=== PATIENT | male | born 1970 | race African-American/Black ===

== ENCOUNTER 2016-05-16 05:07 | Day surgery (SDC) | payer OTHER ==
[2016-05-16] MEDS ORDERED: 1/2 NS 500 ML ONE (05:31)
[2016-05-16 06:26] LABS: CALCIUM 7.9 mg/dL (8.8-10.2); POTASSIUM 2.8 mmol/L (3.5-5.1)
[2016-05-16] MEDS ORDERED: MARCAINE 0.25% PF/EPI 1:200,000 ONE (06:36)
[2016-05-16] MEDS ORDERED: HEPARIN ONE ×2 (06:36→13:05)
[2016-05-16] MEDS ORDERED: XYLOCAINE 1%/EPI 1:100,000 ONE (06:39)
[2016-05-16] MEDS ORDERED: NS 1,000 ML ONE (06:44)
[2016-05-16] MEDS ORDERED: KEFZOL ONE (06:46)
[2016-05-16] MEDS ORDERED: KEFZOL 1 GM/D5W 50 ML ONE (07:22)
[2016-05-16] MEDS ORDERED: NORCO-10 ONE (09:35)
[2016-05-16] MEDS ORDERED: ZOFRAN IV PRN (09:42)
[2016-05-16] MEDS ORDERED: SUBCUTANEOUS INSULIN PUMP MC SCH (09:42)
[2016-05-16] MEDS ORDERED: NORCO-10 PO PRN (09:42)
[2016-05-16] MEDS ORDERED: INSULIN ASPART 5 UNIT SQ SCH (09:42)
[2016-05-16 10:25] VITALS: BP 148/89
--- NOTE | 2016-05-16 11:47 | OPERATIVE NOTE ---
PROCEDURE DATE: 05/16/2016 PROCEDURE PERFORMED: Construction of translocated left brachial basilic arteriovenous fistula. SURGEON: Franky Dugan MD. IRONER OR PRESSER: Kaylyn. PREOPERATIVE DIAGNOSIS: Chronic kidney disease 5. POSTOPERATIVE DIAGNOSIS: Chronic kidney disease 5. DESCRIPTION OF PROCEDURE: After satisfactory general anesthesia was achieved, the left arm was prepped and draped in a sterile fashion. We palpated the brachial pulse at the antecubital fossa. We made a domingo and anesthetized the skin with 1% lidocaine with epinephrine. We made a longitudinal incision. In that incision, we found the brachial artery. We also found the basilic vein. We then followed the course of the basilic vein up to the axilla. We incised the skin as we went and achieved satisfactory hemostasis with electrocautery. As we went along the course of the vein, we tried to avoid any superficial sensory nerves. We then gave the patient 7000 units of heparin systemically. We measured the vein and it measured about 21 cm. We then marked on the skin in the area that we would tunnel the vein, so we then identified where that the vein would then come to meet the artery and we exposed the artery in the mid aspect of the arm, surrounded it with vessel loops proximally and distally. We then mobilized the vein. We ligated it distally with a 3-0 silk suture ligature, transected it, and after we marked the vein we then mobilized it from its bed, ligating the branches that were coming off of it. In 1 branch, we had to use a 7-0 Prolene stitch to close it. After we dissected the vein all the way back to the axilla, we then placed our Impra tunneler through the skin and subcutaneously, and attached the vein to the 4 mm tip. We then pulled the vein through the tunnel carefully and took care not to twist it, having marked the vein to a help avoid twisting. We did irrigate the vein and it irrigated satisfactorily. Before we tunneled it, we had dilated the vein with heparinized saline and any small spots that required a 7-0 Prolene stitch we placed. Then we tunneled it and the vein was left laying by the artery. We then occluded flow in the artery with vessel loops, incised the artery and extended with the Taveras scissors. We then used a 3-1/2 punch. We then constructed an end-to-side anastomosis under 2.5 loupe magnification using a 7-0 Prolene stitch. We began deep and then came around in a parachuting style, constructing the end-to-side anastomosis. Upon completion of that, we allowed flow through the fistula. Flow was established. The flow was augmented with proximal compression. No bleeding was identified. The anastomosis was hemostatic. We then irrigated out the arm, placed some 3-0 Polysorb simple stitches to reapproximate some of the fascia, and then closed the subcutaneous tissue with a running 3-0 Polysorb. This did not obstruct flow in the vein. We then closed the skin with a 4-0 Polysorb subcuticular stitch. An island dressing was applied. He tolerated it well and was sent to the recovery room in satisfactory condition.
[2016-05-16] MEDS ORDERED: DIPRIVAN 1% ONE (12:36)
[2016-05-16] MEDS ORDERED: FENTANYL ONE (12:37)
[2016-05-16] MEDS ORDERED: NEO-SYNEPHRINE ONE (13:05)
[2016-05-16] MEDS ORDERED: ZOFRAN ONE (13:05)
[2016-05-16] MEDS ORDERED: ROBINUL ONE (13:06)
[2016-05-16] MEDS ORDERED: XYLOCAINE-MPF 2% ONE (13:06)
[2016-05-16] MEDS ORDERED: EPHEDRINE ONE (13:06)
[2016-05-16] MEDS ORDERED: COREG PO SCH (21:00)
[2016-05-16] MEDS ORDERED: LASIX PO SCH (21:00)
[2016-05-16] MEDS ORDERED: DILANTIN PO SCH (21:00)
[2016-05-16] MEDS ORDERED: REGLAN PO SCH (21:00)
[2016-05-17] MEDS ORDERED: NORVASC PO SCH (09:00)
[2016-05-17] MEDS ORDERED: DILANTIN PO SCH (09:00)
== END 2016-05-16 10:27 | disposition home or self-care (01) ==
LOC: OPS 05:07
PROVIDERS: ATTEND Surgery
DX: I12.0 Hypertensive chronic kidney disease with stage 5 chronic kidney disease or end stage renal disease (principal); N18.5 Chronic kidney disease, stage 5; E11.9 Type 2 diabetes mellitus without complications
CPT/HCPCS: 80048; 82948; J0690; J1644; J2370; J2405; J3010; J7030

== ENCOUNTER 2016-07-08 20:14 | Inpatient (IN) ==
[2016-07-08] MEDS ORDERED: ASPIRIN PO STA (20:22)
[2016-07-08 20:44] LABS: MANUAL DIFF NEEDED? NO
[2016-07-08 20:46] LABS: BASO% 0.5 % (0.0-0.8); EOS# 0.23 X1000 (0.0-0.7); EOS% 2.5 % (0.0-10.0); HEMATOCRIT 30.2 % (42.0-52.0); HEMOGLOBIN 10.6 g/dL (14.0-18.0); IMM GRAN# 0.02 X1000 (0.0-0.04); IMM GRAN% 0.2 % (0.0-0.5); LYMPH# 2.81 X1000 (1.2-3.4); LYMPH% 30.3 % (20.5-51.1); MCHC 35.1 g/dL (33-37); MCV 91.2 FL (81-99); MONO# 0.75 X1000 (0.11-0.59); MONO% 8.1 % (1.7-9.3); MPV 9.3 FL (7.4-10.4); NEUT% 58.4 % (42.2-75.2); PLT 287 X1000 (130-400); RBC 3.31 XMIL (4.7-6.1)
[2016-07-08 20:56] LABS: INR 1.05; PROTIME 11.1 Seconds (9.2-11.7); PTT 27.5 Seconds (22.0-36.0)
[2016-07-08 21:18] LABS: MAGNESIUM 1.8 mg/dL (1.5-2.7); POTASSIUM 3.4 mmol/L (3.5-5.1); TOTAL BILIRUBIN 0.23 mg/dL (0.20-1.00); TOTAL PROTEIN 6.4 g/dL (6.3-8.3)
[2016-07-08 21:37] LABS: CK INDEX 1.7 (0.0-2.5); CK-MB 6.01 ng/mL (0.0-5.0)
[2016-07-08] MEDS ORDERED: COREG PO ONE (22:13)
[2016-07-08] MEDS ORDERED: HEPARIN IV ONE (22:27)
[2016-07-08] MEDS ORDERED: HEPARIN 25,000 UNITS/D5W 25,000 UNIT/250 ML IV.SOLN IV SCH (22:30)
--- NOTE | 2016-07-09 00:26 | HISTORY AND PHYSICAL ---
PRIMARY CARE PHYSICIAN: Dr. Hernán Dawson. CHIEF COMPLAINT: Chest pain. HISTORY OF PRESENTING ILLNESS: A 45-year-old male with a history of diabetes mellitus type 2, hypertension, end-stage renal disease, and seizure disorder, who presented to the emergency department with 2 days history of having substernal chest pain. He described it as pressure-like and intermittent, and states that it seemed to be worsening. The patient was evaluated in the ER, and due to his presenting symptoms, it was thought that we will place him for observation for further evaluation and management. The patient apparently also had a left lower extremity edema that has been ongoing for about 2 months. He had a venous Doppler done previously, which was negative for any DVT. However, he states that he is unsure why the edema is not resolving. PAST MEDICAL HISTORY: Diabetes mellitus type 2,, on insulin pump, hypertension , end-stage renal disease, on renal dialysis Thursday, Thursday, Thursday, seizure disorder, peripheral arterial disease, left lower extremity DVT. PAST SURGICAL HISTORY: Brain abscess drainage, toe amputations on both feet, dialysis catheter in place. ALLERGIES: No known drug allergies. CURRENT MEDICATIONS: Reglan 5 mg p.o. b.i.d., Lasix 40 mg p.o. daily, Coreg 12.5 mg p.o. b.i.d., Norvasc 10 mg p.o. daily, Dilantin 300 mg p.o. q.a.m. and 200 mg p.o. at bedtime , [place] 10 one p.o. q.4 hours. SOCIAL HISTORY: No history of smoking, alcohol, or illicit drug use. FAMILY HISTORY: No history of coronary disease. REVIEW OF SYSTEMS: Twelve-point review of systems elicited as in HPI. Other systems are negative. PHYSICAL EXAMINATION: GENERAL: Cooperative, friendly male. He is resting comfortably. VITAL SIGNS: Temperature 97.8 degrees, pulse 66, respirations 17, blood pressure 146/72, saturating 100%. HEENT: Atraumatic, normocephalic. Extraocular movements intact. PERRLA. NECK: No masses. CHEST: Bibasilar rales. CARDIOVASCULAR: Regular rate and rhythm. ABDOMEN: Soft, nontender. Positive bowel sounds. EXTREMITIES: Left lower extremity +2 edema. NEUROLOGIC: He is awake, alert, oriented x3. GENITOURINARY: No bladder distention. SKIN: Warm. LABORATORIES AND STUDIES: WBCs 9.28, hemoglobin 10.6, hematocrit 30.2, platelets 287,000. D- dimer is 3.08. Sodium 135, potassium 3.4, chloride 95, CO2 is 22, BUN is 55, creatinine 6.3. Glucose is 123. Troponin is 0.164. ASSESSMENT: A 45-year-old male with a history of diabetes mellitus type 2, hypertension, end- stage renal disease, and seizure disorder, who had presented to the emergency department with a complaint of chest pain. We will place patient for observation for further evaluation and management. 1. Chest pain, with slightly elevated troponins. 2. Increase in D-dimer. Will need to rule out pulmonary embolus. 3. History of deep venous thrombosis in the left lower extremity. 4. End-stage renal disease. 5. Diabetes mellitus type 2. PLAN: 1. We will admit patient to medical floor with telemetry. 2. Continue with cardiac workup. Check EKG, serial cardiac enzymes. Have patient continue on aspirin. We will use sublingual nitroglycerin, morphine p.r.n. chest pain. 3. We will schedule patient for a VQ scan and put him on heparin. 4. We will consult his director of sports medicine for dialysis. 5. Will have patient continue on his insulin pump and monitor blood glucose. 6. We will continue to follow and reassess. cc: Chava Vidal MD MTDD
[2016-07-09] MEDS: HEPARIN 25,000 UNIT in NS 250 ML IV SCH ×2 (01:15→06:43)
[2016-07-09] MEDS ORDERED: PATIENT'S OWN MED INJ SCH (01:53)
[2016-07-09] MEDS ORDERED: ZOFRAN IV PRN (01:53)
--- NOTE | 2016-07-09 04:16 | PROVIDER DOCUMENTATION ---
This chart was entered by Yvette Aldrich Scribe, acting as scribe for Everette Yin MD. HPI-Chest Pain - General Chief Complaint: Chest Pain Stated Complaint: PORT INFECTION ON LT ARM/CP Time Seen by Provider: 07/08/16 21:56 Source: patient Allergies/Adverse Reactions: Patient Allergies Allergy/AdvReac Type Severity Reaction Status Date / Time No Known Allergies Allergy Verified 05/16/16 05:38 Home Medications: Home Medication List Medication Instructions Recorded Confirmed Last Taken Type Metoclopramide HCl [Reglan] 5 mg PO BID #60 tablet 03/01/16 07/08/16 07/08/16 19 :00 Rx Furosemide [Lasix] 40 mg PO BID 04/02/16 07/08/16 07/08/16 19:00 History Carvedilol [Coreg] 12.5 mg PO BID #120 tablet 04/13/16 07/08/16 07/08/16 22:00 Rx Amlodipine [Norvasc] 20 mg PO DAILY 05/14/16 05/16/16 07/08/16 07:00 History Insulin Aspart [Novolog] 0 unit SQ DIRECTED 05/14/16 07/08/16 05/16/16 History Phenytoin [Dilantin] 200 mg PO HS 05/14/16 07/08/16 07/08/16 19:00 History Phenytoin [Dilantin] 300 mg PO QAM 05/14/16 07/08/16 07/08/16 07:00 History Subcutaneous Insulin Pump [Insulin 1 each MC DIRECTED 05/14/16 07/08/1607/08 07:00 History Pump] Hydrocodone/Acetaminophen [Rogers 1 each PO Q4H PRN PRN #20 tablet 05/16/1607/08 Unknown Rx 10-325 Tablet] - History of Present Illness-CP Nature of Presenting Problem: 45 year old M presents to the ED with a cc of intermittent chest pains with an onset of 2 days ago. Pt states that he also gets short of breath with the pains. Pt states that he just recently got a port placed in his left upper arm with minimal swelling. PT states that he has also had left lower leg swelling x2 -3 months. Location: reports: substernal Chest Pain Radiation: reports: no radiation Quality of Pain: reports: throbbing Severity in ED: mild Onset/Duration: 2 days ago Timing: intermittent Modifying Factors: improves with: nothing Associated Symptoms: reports: edema Aspirin Treatment Today: 325 mg x 1, provided by ED Similar Symptoms Previously?: No Recently Seen Here or By Another Healthcare Provider: No Review of Systems - Adult - REVIEW OF SYSTEMS - ADULT Constitutional: denies: chills, fever Eyes: reports: no symptoms reported Ears, Nose, Mouth & Throat: reports: no symptoms reported Cardiovascular: reports: chest pain, edema. denies: palpitations Respiratory: reports: no symptoms reported Gastrointestinal: denies: nausea, vomiting Genitourinary: reports: no symptoms reported Musculoskeletal: reports: no symptoms reported Integumentary: reports: no symptoms reported Neurological: reports: no symptoms reported Psychiatric: reports: no symptoms reported Endocrine: reports: no symptoms reported Hematologic/Lymphatic: reports: no symptoms reported Allergic/Immunologic: reports: no symptoms reported All Other Systems: Reviewed and Negative Past History - Adult - PAST MEDICAL HISTORY-ADULT Review of Records: reports: Nursing Assessment Review, Medications Reviewed Major Childhood Illnesses: reports: denies history Cardiovascular: reports: HTN, PVD (severe) Respiratory: reports: denies history Gastrointestinal: reports: denies history Obstetrical/Gynecological: reports: denies history Genitourinary: reports: kidney disease Musculoskeletal: reports: other (foot infection with ulcers) Neurological: reports: Seizures/Epilepsy, other (brain abscess with craniotomy) Endocrine/Immune: reports: Diabetes, other (diabetic foot infection with ulcers) Other Conditions: reports: denies history - PRIOR SURGERIES/PROCEDURES Surgical/Procedure History: reports: indwelling device (port) - IMMUNIZATION STATUS Childhood Immunizations: See Nurse Assessment Flu Vaccine: See Nurse Assessment - FAMILY HISTORY Family History: reviewed, not pertinent - SOCIAL HISTORY Smoking: non-smoker Substance Use: none/never Alcohol Use Frequency: never Physical Exam-General - PHYSICAL EXAM-ADULT Initial Vital Signs Reviewed: Yes - CONSTITUTIONAL General Appearance: appears well, alert, no apparent distress - RESPIRATORY Respiratory: chest non-tender, lungs clear, normal breath sounds - CARDIOVASCULAR Cardiovascular: normal peripheral pulses, regular rate, rhythm, no edema - GASTROINTESTINAL (ABDOMEN) Abdominal Exam: non tender, soft - MUSCULOSKELETAL Extremity: pedal edema (2+ pitting edeme to left lower extremity) - SKIN Integumentary: normal color, normal turgor, warm/dry - PSYCHIATRIC Psych/Mental Status: normal mood/affect, normal thought content, normal thought process, oriented x 3 Progress - PLAN OF CARE/RESULTS Progress/Plan/Lab Results: Vital Signs - 8 hr 07/08/16 20:20 Temperature 97.8 F Pulse Rate 66 Respiratory Rate 17 Blood Pressure 146/72 O2 Sat by Pulse Oximetry 100 Laboratory Results - last 24 hr 07/08/16 07/08/16 07/08/16 20:30 20:30 20:30 WBC 9.28 RBC 3.31 L Hgb 10.6 L Hct 30.2 L MCV 91.2 MCH 32.0 H MCHC 35.1 RDW Std Deviation 12.0 Plt Count 287 MPV 9.3 Immature Gran % (Auto) 0.2 Neut % (Auto) 58.4 Lymph % (Auto) 30.3 [place] % (Auto) 8.1 Eos % (Auto) 2.5 Baso % (Auto) 0.5 Immature Gran # (Auto) 0.02 Neut # (Auto) 5.42 Lymph # (Auto) 2.81 [place] # (Auto) 0.75 H Eos # (Auto) 0.23 Baso # (Auto) 0.05 PT INR PTT (Actin FS) D-Dimer 3.08 H Sodium 135 L Potassium 3.4 L Chloride 95 L Carbon Dioxide 22 L Anion Gap 18 BUN 55 H Creatinine 6.3 H Estimated GFR/1.73 m2 12 BUN/Creatinine Ratio 9 Glucose 123 H Calculated Osmolality 287 Calcium 8.0 L Magnesium 1.8 Total Bilirubin 0.23 AST 11 ALT 6 L Alkaline Phosphatase 179 H Creatine Kinase 364 H Creatine Kinase Index 1.7 CK-MB (CK-2) 6.01 H Troponin T Axd-L-Rtxeequftxf Pept Total Protein 6.4 Albumin 3.0 L Globulin 3.4 Albumin/Globulin Ratio 0.9 07/08/16 07/08/16 07/08/16 20:30 20:30 20:30 WBC RBC Hgb Hct MCV MCH MCHC RDW Std Deviation Plt Count MPV Immature Gran % (Auto) Neut % (Auto) Lymph % (Auto) [place] % (Auto) Eos % (Auto) Baso % (Auto) Immature Gran # (Auto) Neut # (Auto) Lymph # (Auto) [place] # (Auto) Eos # (Auto) Baso # (Auto) PT 11.1 INR 1.05 PTT (Actin FS) 27.5 D-Dimer Sodium Potassium Chloride Carbon Dioxide Anion Gap BUN Creatinine Estimated GFR/1.73 m2 BUN/Creatinine Ratio Glucose Calculated Osmolality Calcium Magnesium Total Bilirubin AST ALT Alkaline Phosphatase Creatine Kinase Creatine Kinase Index CK-MB (CK-2) Troponin T 0.164 H Pfp-B-Bsxuszfbnjt Pept 1750 H Total Protein Albumin Globulin Albumin/Globulin Ratio Orders Category Date Time Status Admit - [facility] Routine AdmDCTranf 07/09/16 01:53 Ordered Activity - Up with Assistance ORDERED Care 07/09/16 01:53 Active Cardiac Monitoring DIRECTED Care 07/08/16 20:23 Active FSBS/Accucheck Result AC + HS Care 07/09/16 01:53 Active Intake and Output-Strict ORDERED Care 07/09/16 01:53 Active Nursing- MD Consult Request ROUTINE Care 07/09/16 01:53 Active Saline Loc NOW Care 07/08/16 20:23 Active Vital Signs Order Q 8-HR ASSESS Care 07/09/16 01:53 Active MD [Physician/Provider Consults] Routine Cons 07/09/16 01:53 Ordered Physician/Provider Consults Routine Cons 07/09/16 01:53 Ordered Diabetic Diet Diet 07/09/16 23:47 Active CHEST-2 VIEWS [RAD] Stat Exams 07/08/16 20:23 Taken BASIC METABOLIC PANEL [CHEM] Routine Lab 07/09/16 06:00 Ordered CBC WITH DIFF [HEME] Routine Lab 07/09/16 06:00 Ordered CBC WITH ELECTRONIC DIFF [HEME] Stat Lab 07/08/16 20:30 Completed CK PROFILE [SP CHEM] Stat Lab 07/08/16 20:30 Completed COMPREHENSIVE METABOLIC PANEL [CHEM] Stat Lab 07/08/16 20:30 Completed D-DIMER [CHEM] Stat Lab 07/08/16 20:30 Completed MAGNESIUM [CHEM] Stat Lab 07/08/16 20:30 Completed PRO B-NATRIURETIC PEPTIDE Stat Lab 07/08/16 20:30 Completed PROTIME WITH INR [COAG] Stat Lab 07/08/16 20:30 Completed PTT [COAG] Stat Lab 07/08/16 20:30 Completed TROPONIN T Q8HR Lab 07/09/16 05:00 Ordered TROPONIN T Q8HR Lab 07/09/16 13:00 Ordered TROPONIN T Q8HR Lab 07/09/16 21:00 Ordered TROPONIN T Stat Lab 07/08/16 20:30 Completed Aspirin Med 07/08/16 20:22 Discontinued 325 mg PO STAT STA Carvedilol [Coreg] Med 07/09/16 09:00 Active 12.5 mg PO BID Carvedilol [Coreg] Med 07/08/16 22:13 Discontinued 12.5 mg PO NOW ONE Furosemide [Lasix] Med 07/09/16 09:00 Active 40 mg PO BID Heparin Med 07/08/16 22:27 Discontinued 5,000 unit IV NOW ONE Heparin 25,000 Units/D5w Med 07/08/16 22:30 Discontinued 25,000 unit in 250 ml IV 15.7 mls/hr Hydrocodone/APAP 10 mg/325 mg [Rogers-10] Med 07/09/16 01:53 Active 1 each PO Q4H PRN PRN Ondansetron [Zofran] Med 07/09/16 01:53 Active 4 mg IV Q4H PRN PRN Phenytoin [Dilantin] Med 07/09/16 21:00 Active 200 mg PO HS Phenytoin [Dilantin] Med 07/09/16 09:00 Active 300 mg PO QAM Subcutaneous Insulin Pump [Insulin Pump] Med 07/09/16 01:53 Ordered 1 each MC DIRECTED Telemetry [OM.EQ] Routine Oth 07/09/16 01:53 Active EKG [EKG] Stat Ther 07/08/16 20:23 Ordered Transfer/Admit Order [TRANSFER] Routine Transfer 07/08/16 23:46 Completed Result Diagrams: 07/08/16 20:30 07/08/16 20:30 - EKG 1 Time of EKG reading by physician:: 20:25 EKG Read and Signed by:: Everette Yin EKG Interpretation (*Must complete 3 of following elements*): Abnormal Rate: 68 Rhythm: NSR QRS: LVH (moderated voltage criteria) ST Wave: non-specific ST changes - XRAY 1 XRAY Study: Chest Impression: Normal XRAY Interpretation: mild cardiomegally otherwise normal: Dr. Yin(ER MD) - CONSULTS/PCP/HOSPITALIST Notification #1 *Consult/PCP/Hospitalist*: Dr. Vidal(Hospitalist) Time Discussed: 22:27 Consult Disposition: Admit Departure - Departure Time of Disposition Decision: 22:28 DIAGNOSIS: Chest pain Disposition: ADMITTED INPATIENT 09 Certified Medical Emergency: Emergent Condition: Fair - Critical Care Note This patient required my direct personal management.: Yes This chart was documented by the indicated scribe, (Yvette Aldrich Scribe) and accurately reflects the services I performed and decisions made by me, Everette Yin MD, as attested by the provider's signature.
[2016-07-09 05:00] LABS: MANUAL DIFF NEEDED? NO
[2016-07-09 05:22] LABS: BASO% 0.2 % (0.0-0.8); EOS# 0.19 X1000 (0.0-0.7); EOS% 2.3 % (0.0-10.0); HEMATOCRIT 25.8 % (42.0-52.0); HEMOGLOBIN 9.1 g/dL (14.0-18.0); IMM GRAN# 0.02 X1000 (0.0-0.04); IMM GRAN% 0.2 % (0.0-0.5); LYMPH# 3.41 X1000 (1.2-3.4); LYMPH% 40.7 % (20.5-51.1); MCH 32.5 PG (27-31); MCHC 35.3 g/dL (33-37); MCV 92.1 FL (81-99); MONO# 0.46 X1000 (0.11-0.59); MONO% 5.5 % (1.7-9.3); MPV 9.8 FL (7.4-10.4); NEUT% 51.1 % (42.2-75.2); PLT 290 X1000 (130-400)
--- NOTE | 2016-07-09 05:45 | EKG Report ---
Test Performed on : 07/08/2016 8:25:25 PM Test Reason : Chest Pain Blood Pressure : / mmHG Vent. Rate : 068 BPM Atrial Rate : 068 BPM P-R Int : 148 ms QRS Dur : 100 ms QT Int : 400 ms P-R-T Axes : 019 004 042 degrees QTc Int : 425 ms Normal sinus rhythm. Moderate voltage criteria for LVH, may be normal variant Nonspecific T wave abnormality Abnormal ECG When compared with ECG of 16-APR-2016 01:03, premature atrial complexes. are no longer present QT has shortened Unconfirmed Result
[2016-07-09 05:54] LABS: CALCIUM 7.6 mg/dL (8.8-10.2); POTASSIUM 3.1 mmol/L (3.5-5.1)
--- NOTE | 2016-07-09 06:31 | Diag Imaging Result Document ---
PROCEDURE NAME: CHEST-2 VIEWS - 07/08/2016 FRONTAL AND LATERAL CHEST, TWO VIEWS: COMPARISON: Compared to 04/19/2016. FINDINGS: The lungs are well expanded. The heart is mildly prominent. The vessels are not distended. No pneumonia. No pleural effusions. No free air beneath the diaphragm. No change in the double lumen right-sided catheter. No pneumothorax. IMPRESSION: No acute abnormality.
[2016-07-09] MEDS ORDERED: HEPARIN IV PRN ×2 (07:59→13:04)
[2016-07-09] MEDS ORDERED: NS 2,000 ML MISC PRN (07:59)
[2016-07-09] MEDS ORDERED: TIGHT: 0.2 ML/HR MISC PRN (07:59)
[2016-07-09] MEDS ORDERED: NS 2,000 ML ONE (08:57)
[2016-07-09] MEDS ORDERED: HEPARIN ONE (08:57)
[2016-07-09] MEDS: COREG PO SCH ×2 (13:17→20:19)
[2016-07-09] MEDS: LASIX PO SCH ×2 (13:17→20:19)
[2016-07-09] MEDS: DILANTIN PO SCH ×2 (13:17→20:19)
--- NOTE | 2016-07-09 14:23 | CONSULTATION ---
DATE OF CONSULTATION: 07/09/2016 REASON FOR ADMISSION: Chest pain, elevated D-dimer, rule out DVT. REASON FOR CONSULTATION: End-stage renal disease and assist with management. CONSULTING PHYSICIAN: Dr. Larsen. HISTORY OF PRESENT ILLNESS: This is a 45-year-old gentleman well known to our service for end- stage renal disease on hemodialysis on a Thursday, Thursday, Thursday schedule, who had a 2-day history of substernal chest pain that was pressure-like, stated it radiated to the arm. It did not improve, and so he presented to the emergency room for further workup and treatment. He was evaluated in the emergency room. He was found to have an elevated D-dimer and was admitted for further workup and treatment. We have been asked to see him to manage his dialysis and assist with medical management. PAST MEDICAL HISTORY: 1. Diabetes type 2. 2. Hypertension. 3. End-stage renal disease. 4. Seizure disorder. 5. Peripheral arterial disease. 6. Left lower extremity DVT. 7. GERD. 8. Chronic pain. PAST SURGICAL HISTORY: He has had brain abscess drainage, toe amputations bilateral feet. He has had a dialysis catheter to the right chest wall. He has an AV graft to the left upper extremity that is not being released for use yet. ALLERGIES: No known drug allergies. HOME MEDICATIONS: Reglan, Lasix, Coreg, Norvasc, Dilantin, [place]. FAMILY HISTORY: No coronary artery disease. SOCIAL HISTORY: No EtOH, tobacco or illicit drug use. REVIEW OF SYSTEMS: Chest pain, lower extremity edema, otherwise negative. PHYSICAL EXAMINATION: Vital Signs: Temperature 98.3 degrees, pulse 59, respiratory rate 16, blood pressure 185/98. Intake 144; output 500 mL. General: This is a middle- aged, gentleman sitting up in bed. He is awake and alert, oriented x4. Able to give an appropriate history and is in no acute distress. HEENT: Normocephalic. He has old scars noted to the scalp. MILEY, conjunctivae pink. His oral mucosa is moist. Neck: Supple. Trachea midline. There is no JVD noted. Cardiovascular: Regular rate and rhythm. There is no murmur or gallop appreciated. Pulmonary: He has some rhonchi bilaterally. No overt wheeze. No increased work of breathing. Abdomen: Round, soft, positive bowel sounds. : Not inspected. He has minimal void with hemodialysis assist. Extremities: He has 2+ edema of the left lower extremity, less so to the right. He is moving all extremities. Left upper extremity has a healed surgical site from dialysis access placement. Neuro: Grossly nonfocal. AAO times four. Integumentary: Skin is warm and dry without rash or lesion. He has a tunneled dialysis catheter noted to the right upper chest wall with insertion site clean, dry, and intact. LAB DATA: WBC of 8.3, hemoglobin 9.1. Sodium 137, potassium 3.1, CO2 22, BUN 59, creatinine 6.7. ASSESSMENT AND PLAN: 1. End-stage renal disease. Today is his routine dialysis day. We will dialyze him on a two potassium bath/ultrafiltration to dry weight/four hour treatment. 2. Chest pain. Rule out deep vein thrombosis. He is on a heparin drip. Followed by primary. He is to go for a ventilation perfusion scan we understand later on. 3. Electrolytes, acid-base balance, anemia: These are stable. 4. Fluid volume. He is not grossly overloaded. Seen, data reviewed, discussed with Tabitha Mckeon on 07/09/16. I agree with the above assessment and plan of care. rg Dictated by KATHY De Los Santos for Parviz Palumbo MD cc: Parviz Palumbo MD [facility]
[2016-07-09] MEDS ORDERED: HEPARIN 25,000 UNIT in NS 250 ML IV SCH (15:00)
[2016-07-09] MEDS ORDERED: ULTRAM PO PRN (15:02)
--- NOTE | 2016-07-09 15:52 | PROGRESS NOTE ---
DATE: 07/09/2016 SUBJECTIVE: Today, Mr. Toussaint referred to be doing fine. He does not have any more chest discomfort, but he feels fatigued. OBJECTIVE: Vital signs: Blood pressure is 169/91, pulse of 66, respirations 18 , temperature is 97.7 degrees. General: Mr. Toussaint is a 45-year-old -[place] male. He was in bed. He did not seem to be in any distress. HEENT: Mucosa is pink and moist. Anicteric. Acyanotic. Neck is supple. Chest: Good air entry bilaterally. No crepitations. No rhonchi. Cardiovascular: Regular rate and rhythm. No murmurs, rubs, no gallops. Abdomen is soft, distended and tender. Extremities: bilateral 1+ pedal edema. There is grossly visible changes of Charcot arthropathy in the feet. The left lower extremity is a little bit more swollen than the right, but there are no acute changes and, according to the patient, it has been very chronic. 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 There is no focal neurological deficit. LABORATORY DATA: WBC is 8.32, hemoglobin is 9.1, platelet count is 291,000. Chemistry is reviewed. Sodium is 137, potassium is 3.1, chloride 91, bicarb is 22, all consistent with endstage renal disease. Troponins on admission was 0.164; it went down now to 0.119. Chest x-ray on presentation shows no acute abnormality. ASSESSMENT: 1. Atypical chest pain. The patient does have tenderness on chest exploration. It is possible this is all costochondritis; however, the troponins were also elevated, and EKG was completely normal. The troponin elevation seems to be study. This is the very first time troponins have been this elevated and patient has presented on other occasions with chest pains, but troponins have not been elevated; so, I think this is probably troponin elevation due to some cardiac ischemic injury. I think the patient will benefit from cardiac workup for ischemic risk stratification. There has been a consult for cardiology; will be pending further recommendations for now. We will treat him with aspirin, statin, and beta stacia. I went back and reviewed all his previous notes, even his imaging, which he just did in [place], which is the Doppler ultrasound of the lower extremities which was completely negative for any deep vein thrombosis. This was done on 07/04/2016. The patient also has had a CT of the chest and even a lung perfusion scan in 2012 for the same chest discomfort which were completely normal. I do not think patient has PE. I know the D-dimer is a little elevated; however, this is not the highest it has been, and all the other workup even when it was 6.45 in 2012, the patient did not have any PE. It was also high at 4.98 in 12/2015. The patient did not have any PE. So, I do not think this elevation reflects any PE. I have discontinued the heparin protocol for now. We will only use b.i.d. subcutaneous heparin for DVT prophylaxis. 2. End-stage renal disease. The patient has been seen by Nephrology. He has already had a dialysis. 3. Diabetes mellitus, this is controlled. 4. 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 So, in general, Mr. Toussaint presented with some chest discomfort which apparently radiated to the left arm associated with fatigue. Troponins are slightly elevated. The patient has endstage renal disease, diabetes, hypertension which predisposes him to have coronary artery disease. I think he probably genuinely does have some ischemic cardiomyopathy and that he will need to be risk stratified. Cardiology has been consulted and will be pending on further recommendations. For now, I will do CRP high sensitivity to see if that is elevated in the context of suspicion for coronary artery disease. cc: Andrea Teran MD MTDRoberta
[2016-07-09] MEDS: HEPARIN SUBQ SCH (20:19)
[2016-07-09] MEDS: NORCO-10 PO PRN (20:19)
[2016-07-10] MEDS: NORCO-10 PO PRN ×3 (00:08→21:37)
[2016-07-10 06:59] LABS: MANUAL DIFF NEEDED? NO
[2016-07-10 07:05] LABS: BASO% 0.5 % (0.0-0.8); EOS# 0.15 X1000 (0.0-0.7); EOS% 2.6 % (0.0-10.0); HEMATOCRIT 29.6 % (42.0-52.0); HEMOGLOBIN 10.2 g/dL (14.0-18.0); LYMPH# 2.45 X1000 (1.2-3.4); MCH 32.7 PG (27-31); MCHC 34.5 g/dL (33-37); MCV 94.9 FL (81-99); MONO# 0.53 X1000 (0.11-0.59); MONO% 9.1 % (1.7-9.3); MPV 9.6 FL (7.4-10.4); NEUT% 45.8 % (42.2-75.2); PLT 272 X1000 (130-400); RBC 3.12 XMIL (4.7-6.1)
[2016-07-10 07:43] LABS: CALCIUM 7.9 mg/dL (8.8-10.2); POTASSIUM 3.3 mmol/L (3.5-5.1)
[2016-07-10] MEDS: COREG PO SCH ×2 (10:22→21:37)
[2016-07-10] MEDS: HEPARIN SUBQ SCH ×2 (10:22→21:38)
[2016-07-10] MEDS: LASIX PO SCH ×2 (10:22→21:38)
[2016-07-10] MEDS: CRESTOR PO SCH (10:23)
[2016-07-10] MEDS ORDERED: LEXISCAN ONE (11:39)
[2016-07-10 11:40] LABS: CK-MB 5.18 ng/mL (0.0-5.0)
--- NOTE | 2016-07-10 12:13 | PROGRESS NOTE ---
DATE: 07/10/2016 IMPRESSION: 1. Chest pain, predominantly typical for myocardial ischemia. 2. Very mild troponin elevation in setting of renal failure. Significance not clear. 3. End-stage renal disease requiring hemodialysis for approximately 2 months. 4. Type 2 diabetes mellitus. 5. Hypertension. 6. Seizure disorder. 7. Peripheral artery disease. 8. Recent left lower extremity deep vein thrombosis. Patient has been on treatment for this and had a recent venous Doppler which showed no persistence of deep venous thrombosis. RECOMMENDATIONS: 1. Check CPK with isoenzymes. 2. Agree with plans to pursue Lexiscan sestamibi. Would have a low threshold to consider coronary angiography given his risk profile. HISTORY: This 45-year-old, male with past history of end-stage renal disease, type 2 diabetes mellitus requiring insulin, hypertension, and seizure disorder as well as recent left lower extremity DVT was admitted for further exacerbation of chest pain. He describes his chest pain as a sharp left anterior chest discomfort that is generally very brief. Discomfort may radiate to his left upper extremity. Discomfort seems to be aggravated by deep breath. He had a more pronounced episode of chest discomfort Karina night and came into the emergency room for evaluation. His troponin was very mildly elevated at 0.16 and he was admitted for further evaluation. A recent venous Doppler study was done last week which was reportedly negative for any persistence of DVT. He has had some persistent edema in the left lower extremity. PAST MEDICAL HISTORY: 1. End-stage renal disease requiring hemodialysis for approximately 2 months. 2. Recent DVT in left lower extremity. Patient has been on treatment for this. 3. Hypertension. 4. Type 2 diabetes mellitus requiring insulin. 5. Seizure disorder. 6. Peripheral artery disease. 7. History of brain abscess drainage. 8. Status post toe amputations on both feet. 9. Hemodialysis catheter in place. ALLERGIES: He has no known drug allergies. MEDICATIONS: Prior to admission as listed. SOCIAL HISTORY: He does not smoke or use alcohol. FAMILY HISTORY: Negative for premature coronary disease. REVIEW OF SYSTEMS: Pulmonary: Negative. Gastrointestinal: Negative. Constitutional: Negative. The remainder of review of systems negative with 14 total systems reviewed. PHYSICAL EXAMINATION: General: This is a pleasant adult -[place] male in no distress. Vital Signs: As recorded are stable. HEENT: Extraocular movements intact. Mucous membranes are moist. Neck: Supple. No JV distention. There are no carotid bruits. Chest: Clear to auscultation. Cardiac Exam: Reveals a regular rate and rhythm without appreciable murmur or gallop. Abdomen: Soft, nontender. Bowel sounds are normal. Extremities: Demonstrate mild left upper extremity edema. Neurologic Exam: The patient is alert, fully oriented. Speech is fluent. Moves all 4 extremities equally well. Skin: Warm and dry. Psychiatric: Reveals mood to be appropriate. LAB DATA: Is remarkable for creatinine 6.3, troponin 0.164. The ECG demonstrates sinus rhythm and voltage criteria for left hypertrophy. Nonspecific T-wave abnormality demonstrated. cc: Lance Whiting MD
--- NOTE | 2016-07-10 14:38 | ECHO REPORT ---
ORDER DATE: 07/10/2016 INDICATION: Chest pain, hypertension, peripheral arterial disease, DVT. FINDINGS: 1. The right atrium appears normal in size. There is an echodensity in the right atrium which is suggestive of a possible catheter tip. Clinical correlation is recommended. 2. Mild tricuspid regurgitation. RV systolic pressure of 41. 3. Normal RV size and systolic function. 4. Trace pulmonic insufficiency. 5. Mild left atrial enlargement at 4.3 cm. 6. No mitral prolapse. Trace mitral regurgitation. 7. There is dilatation of the left ventricle with an end-diastolic dimension of 6.4. Mild left ventricular hypertrophy with a posterior and interventricular septal thickness 1.2 cm each. Normal LV systolic function. Calculated EF 63% with normal wall motion. 8. Aortic valve opens well and is trileaflet. No evidence of stenosis or insufficiency. 9. Aorta appears normal in visualized segments. 10. No pericardial effusion seen. cc: MD Dede Ivey PA
--- NOTE | 2016-07-10 15:34 | Diag Imaging Result Document ---
PROCEDURE NAME: MYOCARDIAL PERF SCAN, STR/REST - 07/10/2016 MYOCARDIAL PERFUSION SCAN: INDICATION: Chest pain. PROCEDURES PERFORMED: 1. One-day stress rest myocardial perfusion imaging. 2. Lexiscan stress. PROCEDURE IN DETAIL: Mr. Toussaint was brought to the nuclear laboratory and had a resting study with injection of 15.9 mCi of technetium-99m sestamibi with the usual imaging protocol utilized. He subsequently was brought back and had a Lexiscan stress and at peak stress was injected with 45.5 mCi of technetium-99m sestamibi with the usual imaging protocol utilized. FINDINGS: LEXISCAN STRESS RESULTS 1. Baseline EKG shows sinus rhythm, suggestion of left ventricular hypertrophy. 2. No clear evidence of ischemic-related EKG changes. No significant arrhythmias occurred during the course of the study. PERFUSION IMAGING RESULTS 1. No evidence of abnormal extracardiac uptake. 2. TID ratio is 0.93. 3. Perfusion imaging essentially shows normal homogeneous uptake in the post stress images. There is no clear evidence of stress-related defects. 4. Normal ejection fraction of 57%. End-diastolic volume 136 and systolic volume of 59. Normal wall motion. cc: MD Andrea Ivey MD
--- NOTE | 2016-07-10 15:35 | PROGRESS NOTE ---
DATE: 07/10/2016 SUBJECTIVE: Today Mr. Toussaint referred to be doing fine. He continues to have nonspecific headaches and occasional chest discomfort. OBJECTIVE: Vital signs: Blood pressure is 141/87, pulse of 59, respirations 18, temperature is 97.4 degrees. General: Mr. Toussaint is a 42-year-old, male. He was in bed in no distress. HEENT: Mucosa is pink and moist. Anicteric. Acyanotic. Neck: Supple. Chest: Good air entry bilaterally. No crepitations. No rhonchi. Cardiovascular: Regular rate and rhythm. No murmurs, no rubs. No gallops. Abdomen: Soft. Extremities: About a trace of pedal edema. There is Charcot arthropathy in both feet. 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 LABORATORY DATA: 1. WBC is 5.84, hemoglobin is 10.2, platelet count of 272. 2. Chemistry is reviewed and consistent with end-stage renal disease. 3. Troponins were consistently high. ASSESSMENT: 1. Chest pain with features of possible coronary artery disease. Troponins continue to be high. Patient has been evaluated by cardiology. I ordered a stress test early this morning. We will be pending the official report. Per the cardiology team, they will have very low threshold for a left heart catheterization. 2. End-stage renal disease. Patient is on dialysis. 3. Diabetes mellitus, controlled. 4. 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 PLAN: So, in general Mr. Toussaint is stable. He will get a stress test and echo today. Depending on the results, cardiology will plan further action. cc: Andrea Teran MD
[2016-07-10] MEDS: DILANTIN PO SCH ×2 (16:11→21:37)
--- NOTE | 2016-07-10 16:43 | PROGRESS NOTE ---
DATE: 07/10/2016 SUBJECTIVE: The patient is sleeping today. He will wake up and follow commands. He is in no acute distress. OBJECTIVE: Vital Signs: Temperature 97.4 degrees, pulse 56, respiratory rate 18, blood pressure 141/87. Intake 1.2 L. Output 3.6 L. General: This is a middle-aged gentleman resting in bed. He is in no acute distress. HEENT: Normocephalic. Pupils equal, round, and reactive to light. Conjunctivae pink. Oral mucosa moist. Neck: Supple. Trachea midline. Cardiovascular: Regular rate and rhythm without murmur or gallop. Pulmonary : He is clear bilaterally today. He has equal excursion and no increased work of breathing. Abdomen: Round, soft, with positive bowel sounds. Genitourinary: Not inspected. He has minimal void with hemodialysis assist. Extremities: Trace pretibial edema. Moving all extremities. Integumentary: Skin is warm and dry. LAB DATA: WBC of 5.8, hemoglobin 10.2, hematocrit 29.6, and platelet count of 272,000. Sodium 137, potassium 3.3, chloride 98, CO2 25, BUN 44, creatinine 6.1. ASSESSMENT AND PLAN: 1. End-stage renal disease management. He is on a Thursday, Thursday, Thursday schedule. We will adhere to that while he remains in the hospital. 2. Electrolytes, acid-base balance anemia. We will check his labs in the morning. Adjust his dialysis bath as warranted. 3. Fluid volume. He is not overloaded. We were able to pull 3.6 L yesterday on dialysis. 4. Chest pain, followed by primary and cardiology. Seen, data reviewed, discussed with Tabitha Mckeon on 07/11/15. I agree with the above assessment and plan of care. rg Dictated by KATHY De Los Santos for Parviz Palumbo MD cc: Parviz Palumbo MD [facility]
[2016-07-10 19:14] LABS: CK INDEX 1.2 (0.0-2.5); CK-MB 5.37 ng/mL (0.0-5.0)
[2016-07-10] MEDS: DEPAKOTE PO SCH (21:37)
[2016-07-11] MEDS: NORCO-10 PO PRN ×2 (01:44→09:16)
[2016-07-11] MEDS ORDERED: NS 2,000 ML MISC PRN (06:58)
[2016-07-11] MEDS ORDERED: HEPARIN IV PRN (06:58)
[2016-07-11] MEDS ORDERED: TIGHT: 0.2 ML/HR MISC PRN (06:58)
[2016-07-11 07:00] LABS: MANUAL DIFF NEEDED? NO
[2016-07-11 07:40] LABS: CALCIUM 7.4 mg/dL (8.8-10.2); POTASSIUM 3.7 mmol/L (3.5-5.1)
[2016-07-11] MEDS ORDERED: NS 2,000 ML ONE (08:00)
[2016-07-11] MEDS ORDERED: HEPARIN ONE (08:00)
[2016-07-11 08:15] LABS: BASO% 0.6 % (0.0-0.8); EOS# 0.21 X1000 (0.0-0.7); EOS% 2.9 % (0.0-10.0); HEMATOCRIT 26.8 % (42.0-52.0); IMM GRAN# 0.02 X1000 (0.0-0.04); IMM GRAN% 0.3 % (0.0-0.5); LYMPH# 2.54 X1000 (1.2-3.4); LYMPH% 35.2 % (20.5-51.1); MCH 32.1 PG (27-31); MCHC 33.6 g/dL (33-37); MCV 95.7 FL (81-99); MONO# 0.82 X1000 (0.11-0.59); MONO% 11.4 % (1.7-9.3); MPV 9.7 FL (7.4-10.4); NEUT% 49.6 % (42.2-75.2); PLT 303 X1000 (130-400)
[2016-07-11] MEDS: COREG PO SCH (08:52)
[2016-07-11] MEDS ORDERED: NORVASC PO SCH (09:00)
[2016-07-11] MEDS: DILANTIN PO SCH ×2 (09:15→09:18)
[2016-07-11] MEDS: HEPARIN SUBQ SCH (09:15)
[2016-07-11] MEDS: DEPAKOTE PO SCH (09:15)
[2016-07-11] MEDS ORDERED: PRINIVIL PO SCH (09:15)
[2016-07-11] MEDS: LASIX PO SCH (09:16)
[2016-07-11] MEDS: CRESTOR PO SCH (09:16)
--- NOTE | 2016-07-11 12:12 | PROGRESS NOTE ---
DATE: 07/11/2016 SUBJECTIVE: He has not had any further chest pain. No shortness of breath. He ate his breakfast without difficulty. OBJECTIVE: Vital Signs: Blood pressure 203/95, heart rate 64, respirations 20, afebrile. Generally: He is a middle-aged man in no acute distress. Skin: Warm and dry. Conjunctivae are pink. Pupils are equal. Neck: Neck veins are not distended. Heart: Regular with a prominent P2. Lungs: Have equal breath sounds. No crackles. Abdomen: Soft, nontender. Bowel sounds are present. Extremities: Have no edema, clubbing, or cyanosis. LABORATORY DATA: Sodium 135, potassium 3.7, chloride 97, bicarbonate 21, BUN 54, creatinine 7.0, hemoglobin 9.0. IMPRESSION: 1. End-stage kidney disease. He will have his routine hemodialysis today. 2. Anemia. We will dose with erythropoietin today. 3. Hypertension. Blood pressure is poorly controlled. But he is on maximum dose of amlodipine and his heart rate limits titration of his carvedilol. We will add lisinopril 40 mg. cc: Parviz Palumbo MD
[2016-07-11 16:47] VITALS: BP 149/71
--- NOTE | 2016-07-11 20:42 | DISCHARGE SUMMARY ---
ADMISSION DATE: 07/08/2016 DISCHARGE DATE: 07/11/2016 DISPOSITION: Home. FOLLOWUP: 1. Parviz Palumbo MD. 2. Dr. Victor. PRIMARY CARE PHYSICIAN: Hernán Dawson MD. CONSULTATION DURING THIS ADMISSION: 1. Cardiology was consulted. Patient was seen by Dr. Whiting. 2. Nephrology was consulted. Patient was seen by Dr. Palumbo. INVASIVE PROCEDURES DONE DURING THIS ADMISSION: None. IMAGING STUDIES OF SIGNIFICANCE: 1. Stress test was done which shows perfusion imaging essentially normal, homogeneous uptake. There was no clear evidence of stress-related defects. Ejection fraction of 57% on stress test. 2. Echocardiogram was done which showed ejection fraction of 63% with dilated left ventricle, end- diastolic dimension of 64, mild ventricular hypertrophy with posterior and interventricular septal thickness. ADMISSION DIAGNOSES: 1. Chest pain. 2. History of deep vein thrombosis in the past. 3. Endstage renal disease. 4. Diabetes mellitus. DISCHARGE DIAGNOSES: 1. Atypical chest pain with normal stress test. 2. Costochondritis. 3. Severe dilated and hypertrophic cardiomyopathy likely secondary to uncontrolled hypertension. 4. Hypertension. 5. Diabetes mellitus. 6. 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 DISCHARGE MEDICATIONS: 1. Furosemide 40 mg b.i.d. 2. Carvedilol 12.5 b.i.d. 3. Amlodipine 20 mg daily. 4. Depakote 1000 mg b.i.d. 5. Lisinopril 20 mg daily. 6. Tramadol 50 mg p.o. q.6h p.r.n. for pain. 7. Crestor 20 mg daily. 8. Aspirin 81 mg daily. PRESENTING COMPLAINT: Chest pain. HISTORY OF PRESENT COMPLAINT: Mr. Toussaint is a 45-year-old, male with a history of diabetes, hypertension, end-stage renal disease who presented to the emergency department because of chest discomfort. The patient was evaluated and admitted for cardiac ischemic workup. The patient was evaluated by Nephrology. He went on his regular dialysis scheduled. He was also evaluated by Cardiology. There was a concern for ischemic component of the chest pain so a stress test was done which was completely negative. An echocardiogram, however, did show the patient has dilated and hypertrophic cardiomyopathy likely due to severe uncontrolled hypertension. During the hospital stay, patient's blood pressure was a little bit uncontrolled. Lisinopril was added to his medications which got this better controlled. Today he has a whole lot better. He denies any chest pain. We are, therefore, waiting to discharge him to follow up with his regular primary care doctor. Patient is also advised to follow up with Cardiology on the dilated and hypertrophic cardiomyopathy for further evaluation. At the time of discharge, patient is completely asymptomatic and he is in stable condition. TIME SPENT FOR DISCHARGE: 38 minutes. cc: Andrea Teran MD MTDD
[2016-07-12] MEDS ORDERED: ASPIRIN PO SCH (09:00)
== END 2016-07-11 17:38 | disposition home or self-care (01) ==
LOC: EDIPHOLD 20:14 → ED 20:14 → SUATTDRO 07-09 00:49 → 3N 07-09 17:37
PROVIDERS: ATTEND Internal Medicine

== ENCOUNTER 2016-11-03 11:08 | Inpatient (IN) ==
[2016-11-03] MEDS ORDERED: DILAUDID IM ONE (11:35)
[2016-11-03] MEDS ORDERED: PHENERGAN IM ONE (11:36)
[2016-11-03] MEDS ORDERED: PRINIVIL PO ONE (11:40)
[2016-11-03] MEDS ORDERED: NORVASC PO ONE (11:41)
[2016-11-03] MEDS ORDERED: COREG PO ONE (11:41)
[2016-11-03] MEDS ORDERED: LABETALOL IV ONE ×2 (11:42→14:20)
[2016-11-03] MEDS ORDERED: TRANDATE PO ONE (12:51)
[2016-11-03] MEDS ORDERED: NITROGLYCERIN ONE (13:42)
[2016-11-03] MEDS ORDERED: NITROGLYCERIN SL ONE (14:03)
[2016-11-03] MEDS ORDERED: LABETALOL ONE (14:20)
[2016-11-03] MEDS ORDERED: NIPRIDE 50 MG in D5W 250 ML IV SCH (14:57)
[2016-11-03] MEDS ORDERED: DILAUDID ONE (16:44)
[2016-11-03] MEDS ORDERED: DILAUDID IV ONE (16:46)
--- NOTE | 2016-11-03 17:51 | Diag Imaging Result Doc PS360 ---
EXAM: CHEST-PORTABLE HISTORY: sob/cp TECHNIQUE: Portable upright AP COMPARISON: 07/08/2016 FINDINGS: The lungs are well expanded. The heart is borderline mildly prominent. The vessels are not distended. No consolidation. No pleural effusions identified. IMPRESSION: Mildly prominent heart, otherwise negative exam. Electronically signed by Marciano Unger 11/03/2016 5:48 PM
--- NOTE | 2016-11-03 17:53 | PROVIDER DOCUMENTATION ---
This chart was entered by Jose Martinez Scribe, acting as scribe for Lamberto Merrill MD. HPI-Headache - General Chief Complaint: Headache Stated Complaint: headache Time Seen by Provider: 11/03/16 11:22 Source: patient, family Allergies/Adverse Reactions: Patient Allergies Allergy/AdvReac Type Severity Reaction Status Date / Time No Known Allergies Allergy Verified 05/16/16 05:38 Home Medications: Home Medication List Medication Instructions Recorded Confirmed Last Taken Type Furosemide [Lasix] 40 mg PO BID 04/02/16 11/03/16 11/02/16 History Carvedilol [Coreg] 12.5 mg PO BID #120 tablet 04/13/16 11/03/16 11/02/16 Rx Amlodipine [Norvasc] 20 mg PO DAILY 05/14/16 11/03/16 07/08/16 07:00 History Subcutaneous Insulin Pump [Insulin 1 each MC DIRECTED 05/14/16 11/03/1611/02 History Pump] Hydrocodone/Acetaminophen [[place] 1 each PO Q4H PRN PRN #20 tablet 05/16/1611/0311/03/16 11:35 Rx 10-325 Tablet] Divalproex [Depakote] 1,000 mg PO BID 07/10/16 11/03/16 11/02/16 History Aspirin 81 mg PO DAILY #60 chewtab 07/11/16 11/03/16 11/02/16 Rx LISINOpril [Prinivil] 20 mg PO DAILY #60 tablet 07/11/16 11/03/16 11/02/16 Rx ROSUVAstatin [Crestor] 20 mg PO DAILY #30 tablet 07/11/16 11/03/16 11/02/16 Rx Tramadol [Ultram] 50 mg PO Q6H PRN PRN #20 tablet 07/11/16 11/03/16 11/02/16 Rx Cyclobenzaprine [Flexeril] 10 mg PO TID PRN #30 tablet 07/29/16 11/03/16 Unknown Rx Glucagon,Human Recombinant 1 mg IJ ONCE PRN PRN #1 kit 07/29/16 11/03/16 Unknown Rx [Glucagon Emergency Kit] - History of Present Illness-Headache Nature of Presenting Problem: Patient is a 45 y/o M that presents to the ER with generalized headache that began to get worse a week ago. patient reports headaches usually are post dialysis treatment. He doesn't take his BP meds prior to dialysis per request of . Patient has photophobia, but no visual changes, n/v, or fever. Headache Location: reports: global Quality of Pain: reports: throbbing Severity: reports: moderate Onset/Duration: reports: abrupt, 1 week ago Timing: reports: still present, constant Headache Context: reports: other (post dialysis treatment) Headache History: reports: frequent headaches Any recent trauma/injury?: reports: none Headache severity at the maximum: moderate Preceding Symptoms: reports: none Headache Exacerbated by:: reports: light Modifying Factors: improves with: other (worsen by light) Associated Symptoms: reports: headache. denies: dizziness, neck/back pain, fever/chills, nausea, vomiting Similar Symptoms Previously?: No Recently seen or treated by another doctor?: No Review of Systems - Adult - REVIEW OF SYSTEMS - ADULT Constitutional: denies: chills, fever Eyes: reports: no symptoms reported Ears, Nose, Mouth & Throat: denies: ear discharge, ear pain, epistaxis, sinus problem, throat pain Cardiovascular: denies: chest pain, orthopnea, palpitations Respiratory: denies: cough, shortness of breath, wheezing Gastrointestinal: denies: abdominal pain, diarrhea, nausea, vomiting Genitourinary: reports: no symptoms reported Musculoskeletal: denies: back pain, joint pain, neck pain Integumentary: reports: no symptoms reported Neurological: reports: headache/migraines. denies: numbness, paresthesia, seizure, slurred speech Psychiatric: reports: no symptoms reported Endocrine: reports: no symptoms reported Hematologic/Lymphatic: reports: no symptoms reported Allergic/Immunologic: reports: no symptoms reported All Other Systems: Reviewed and Negative Past History - Adult - PAST MEDICAL HISTORY-ADULT Review of Records: reports: Old Records Reviewed, Nursing Assessment Review, Medications Reviewed Cardiovascular: reports: HTN, PVD (severe) Genitourinary: reports: dialysis (MWF), kidney disease Neurological: reports: Seizures/Epilepsy, other (brain abscess with craniotomy) Endocrine/Immune: reports: Diabetes, other (diabetic foot infection with ulcers) - PRIOR SURGERIES/PROCEDURES Surgical/Procedure History: reports: indwelling device (port), other (brain abscess) - IMMUNIZATION STATUS Childhood Immunizations: See Nurse Assessment Flu Vaccine: See Nurse Assessment - FAMILY HISTORY Family History: reviewed, not pertinent - SOCIAL HISTORY Smoking: non-smoker Substance Use: none/never Alcohol Use Frequency: never Living Situation: family Physical Exam- Neurological - Physical Exam-Neuro Initial Vital Signs Reviewed: Yes General Appearance: alert, mild distress Eye Exam: bilateral eye: normal inspection, PERRL HENMT: normocephalic/atraumatic, moist mucous membranes, normal ENT inspection Head Injury: no evidence of injury. negative: contusions, flap, raccoon eyes Neck: non-tender, full range of motion, normal inspection Respiratory: lungs clear, normal breath sounds, no respiratory distress, no accessory muscle use Cardiovascular: regular rate, rhythm, no edema, no murmur Abdominal Exam: normal bowel sounds, non tender, soft, no organomegaly, no pulsatile mass Extremity: normal range of motion, normal inspection, no pedal edema [facility] Exam: normal hearing, normal speech, PERRL Motor/Sensory: no motor deficit, no sensory deficit, no pronator drift Neurologic: [facility] II-XII nml as tested, no motor/sensory deficits Integumentary: normal color, normal turgor, warm/dry Psych/Mental Status: normal mood/affect, normal thought content, normal thought process, oriented x 3 - Glascow Coma Scale Best Eye Response: (4) open spontaneously Best Verbal Response: (5) oriented Best Motor Response: (6) obeys commands Total Glascow Score: 15 Progress - PLAN OF CARE/RESULTS Progress/Plan/Lab Results: Vital Signs - 8 hr 11/03/16 11:16 11/03/16 11:52 11/03/16 13:06 Temperature 98.1 F Pulse Rate 84 72 76 Respiratory Rate 18 15 20 Blood Pressure 239/111 235/105 266/136 O2 Sat by Pulse Oximetry 96 96 96 11/03/16 13:32 11/03/16 14:21 11/03/16 15:52 Temperature Pulse Rate 15 L 68 64 Respiratory Rate 18 18 Blood Pressure 252/127 232/123 229/113 O2 Sat by Pulse Oximetry 92 L 95 90 L 11/03/16 17:03 11/03/16 17:35 Temperature Pulse Rate 63 64 Respiratory Rate 10 L 18 Blood Pressure 170/114 181/116 O2 Sat by Pulse Oximetry 92 L 94 L Orders Category Date Time Status CHEST-PORTABLE [RAD] Stat Exams 11/03/16 16:48 Taken CBC WITH ELECTRONIC DIFF [HEME] Stat Lab 11/03/16 16:47 Ordered CMP [COMPREHENSIVE METABOLIC PANEL] [CHEM] Stat Lab 11/03/16 16:47 Ordered Amlodipine [Norvasc] Med 11/03/16 11:41 Discontinued 20 mg PO NOW ONE Carvedilol [Coreg] Med 11/03/16 11:41 Discontinued 12.5 mg PO NOW ONE Dextrose 5%-Water Inj [D5w] 250 ml Med 11/03/16 14:57 Active Nitroprusside [Nipride] 50 mg IV Per Protocol Hydromorphone [Dilaudid] Med 11/03/16 16:46 Discontinued 1 mg IV NOW ONE Hydromorphone [Dilaudid] Med 11/03/16 16:44 Discontinued 2 mg .ROUTE .STK-MED ONE Hydromorphone [Dilaudid] Med 11/03/16 11:35 Discontinued 2 mg IM NOW ONE LISINOpril [Prinivil] Med 11/03/16 11:40 Discontinued 20 mg PO NOW ONE Labetalol Med 11/03/16 14:20 Discontinued 20 mg .ROUTE .STK-MED ONE Labetalol Med 11/03/16 11:42 Discontinued 20 mg IV NOW ONE Labetalol Med 11/03/16 14:20 Discontinued 20 mg IV NOW ONE Labetalol [Trandate] Med 11/03/16 12:51 Discontinued 100 mg PO NOW ONE Nitroglycerin Sl [Nitroglycerin] Med 11/03/16 13:42 Discontinued 0.4 mg .ROUTE .STK-MED ONE Nitroglycerin Sl [Nitroglycerin] Med 11/03/16 14:03 Discontinued 0.4 mg SL NOW ONE Promethazine [Phenergan] Med 11/03/16 11:36 Discontinued 25 mg IM NOW ONE Vital Signs Temp Pulse Resp BP Pulse Ox 11/03/16 17:35 64 18 181/116 94 L 11/03/16 17:03 63 10 L 170/114 92 L 11/03/16 15:52 64 18 229/113 90 L 11/03/16 14:21 68 18 232/123 95 11/03/16 13:32 15 L 252/127 92 L 11/03/16 13:06 76 20 266/136 96 11/03/16 11:52 72 15 235/105 96 11/03/16 11:16 98.1 F 84 18 239/111 96 No Known Allergies Allergy (Verified 05/16/16 05:38) Furosemide [Lasix] 40 mg PO BID 04/02/16 Carvedilol [Coreg] 12.5 mg PO BID #120 tablet 04/13/16 Amlodipine [Norvasc] 20 mg PO DAILY 05/14/16 Subcutaneous Insulin Pump [Insulin Pump] 1 each MC DIRECTED 05/14/16 Hydrocodone/Acetaminophen [[place] 10-325 Tablet] 1 each PO Q4H PRN PRN #20 tablet 05/16/16 Divalproex [Depakote] 1,000 mg PO BID 07/10/16 Aspirin 81 mg PO DAILY #60 chewtab 07/11/16 LISINOpril [Prinivil] 20 mg PO DAILY #60 tablet 07/11/16 ROSUVAstatin [Crestor] 20 mg PO DAILY #30 tablet 07/11/16 Tramadol [Ultram] 50 mg PO Q6H PRN PRN #20 tablet 07/11/16 Cyclobenzaprine [Flexeril] 10 mg PO TID PRN #30 tablet 07/29/16 Glucagon,Human Recombinant [Glucagon Emergency Kit] 1 mg IJ ONCE PRN PRN #1 kit 07/29/16 - CONSULTS/PCP/HOSPITALIST Notification #1 *Consult/PCP/Hospitalist*: Juan CHAVEZ with hospitalist Time Discussed: 17:48 Consult Disposition: Will see in ED, Admit Procedures - ADDITIONAL PROCEDURES Additional Procedure: OTHER (EJ iv insertion) Description of Procedure (Other): at bedside, placed EJ to right side of neck, no complications Departure - Departure Date of Disposition Decision: 11/03/16 Time of Disposition Decision: 17:49 DIAGNOSIS: Hypertensive emergency, Headache, Chronic kidney disease, stage 5 Disposition: ADMITTED INPATIENT 09 Certified Medical Emergency: Emergent Condition: Stable Referrals and Follow-Ups: Hernán Dawson MD [Primary Care Provider] - Discharge Education: Migraine Headache, [id number] - Critical Care Note This patient required my direct & personal management of CC.: Yes Total Time (mins): 65 Critical Care Statement: This patient required my direct personal management to treat or rule out processes, the absence of which, could potentiallly result in sudden, clinically significant life or limb threatening deterioration. Attestation - Physician/ RAVI Attestation The physician spent face to face time with patient:: Yes Advanced Practice Provider documentation review:: Supervising physician onsite and consulted in the evaluation and care of this patient. The physician did have a face to face encounter with the patient. This chart was documented by the indicated scribe, (Jose Martinez, Ela) and accurately reflects the services I performed and decisions made by me, Lamberto Merrill MD, as attested by the provider's signature.
[2016-11-03 18:15] LABS: MANUAL DIFF NEEDED? NO
[2016-11-03 18:17] LABS: BASO% 0.6 % (0.0-0.8); EOS# 0.09 X1000 (0.0-0.7); EOS% 1.4 % (0.0-10.0); HEMATOCRIT 33.6 % (42.0-52.0); HEMOGLOBIN 11.9 g/dL (14.0-18.0); LYMPH# 2.51 X1000 (1.2-3.4); MCH 32.2 PG (27-31); MCHC 35.4 g/dL (33-37); MCV 90.8 FL (81-99); MONO# 0.43 X1000 (0.11-0.59); MONO% 6.7 % (1.7-9.3); NEUT% 52.3 % (42.2-75.2); PLT 257 X1000 (130-400)
[2016-11-03 18:42] LABS: CALCIUM 8.4 mg/dL (8.8-10.2); POTASSIUM 3.7 mmol/L (3.5-5.1); TOTAL BILIRUBIN 0.31 mg/dL (0.20-1.00); TOTAL PROTEIN 5.8 g/dL (6.3-8.3)
--- NOTE | 2016-11-03 19:28 | Diag Imaging Result Doc PS360 ---
EXAM: CT HEAD W/O CONTRAST HISTORY: severe H/A, h/o brain abscess,profound htn TECHNIQUE: CT brain without contrast. Dose reduction protocol. COMPARISON: 04/16/2016. FINDINGS: No parenchymal hemorrhage. No epidural or subdural hematoma. No subarachnoid hemorrhage. There are postsurgical changes on the left with encephalomalacia in the left frontoparietal region. This is similar to the prior study. No mass identified on this noncontrasted exam. No hydrocephalus. No sinus opacification. IMPRESSION: No hemorrhage. Stable exam. Electronically signed by Marciano Unger 11/03/2016 7:26 PM
[2016-11-03] MEDS ORDERED: COMPAZINE IV ONE (19:59)
--- NOTE | 2016-11-03 20:05 | HISTORY AND PHYSICAL ---
CHIEF COMPLAINT: Headache. HISTORY OF PRESENT ILLNESS: Mr. Toussaint is a 45-year-old gentleman with a history of ESRD, seizure disorder, type 2 diabetes, and hypertension, who presented to our emergency department today with headache after dialysis. He reports that every time he has dialysis, he has headaches. Today was particularly bad. He describes the headache as a constant throbbing in the left frontal lobe area. This was not associated with any vision loss or visual changes. His systolic blood pressure was noted to be well above 200, he stopped dialysis about 20 minutes early and came to the ER. He does report possibly some left-sided weakness and some dizziness when he stands, but denies any expressive aphasia or dysphagia. He denies any confusion. In the ER, he had multiple rounds of p.o. antihypertensives, which did not bring his blood pressure down, so he required a Nipride drip. His laboratory data shows his typical chronic ESRD changes, but nothing acute. Chest x-ray shows mild cardiomegaly, but again nothing acute. Given his reports of unilateral weakness, we are going to go ahead and check a CT of the head and since he is on a Nipride drip, we will have to put him in the ICU. PAST MEDICAL HISTORY: 1. ESRD on hemodialysis Thursday, Thursday, Thursday. 2. Diabetes mellitus. 3. Obesity. 4. Hypertension. 5. History of seizures. 6. Peripheral artery disease. 7. History of left lower extremity DVT. 8. GERD. 9. Chronic pain. PAST SURGICAL HISTORY: He has had a brain abscess drainage. He has had dialysis catheter to the right chest wall, AV graft, multiple toe amputations on both feet. HOME MEDICATIONS: Norvasc 20 mg daily, aspirin 81 mg daily, Coreg 12.5 mg b.i.d., Flexeril 10 mg t.i.d., Depakote 1000 mg p.o. b.i.d., Lasix 40 mg p.o. b.i.d., Glucagon as needed, hydrocodone every 4 hours as needed for pain, Prinivil 20 mg daily, Crestor 20 mg daily, insulin pump as directed, Ultram 50 mg q. 6. ALLERGIES: No known drug allergies. REVIEW OF SYSTEMS: Fourteen-point review of systems was obtained and found to be negative with the exception of the HPI. PHYSICAL EXAMINATION: VITAL SIGNS: Blood pressure is 171/108, heart rate 62, respiratory rate 15, O2 saturation 95% on room air, temperature is 98.1 degrees. GENERAL: This is an overweight, male, lying in hospital bed. No acute distress. NEUROLOGIC: The patient is awake and oriented. He follows commands without focal deficits. HEENT: Head is atraumatic and normocephalic. His pupils are equal, round, and reactive to light. His oral mucosa is moist. His trachea is midline. CHEST: Diminished throughout, but no adventitious sounds. CV: Regular rate and rhythm. S1-S2 is noted. GI: Soft, nondistended, nontender. Bowel sounds positive. EXTREMITIES: Left lower extremity with 1 to 2+ edema and right lower extremity with trace edema. Both lower extremities with diminished pulses. DIAGNOSTIC DATA: Chest x-ray shows mild cardiomegaly. Head CT and EKG is pending. LAB DATA: WBC 6.43, hemoglobin 11.9, hematocrit 33.6, platelet count 257. Sodium 132, potassium 3.7, chloride 95, CO2 24, anion gap 13, BUN 27, creatinine 5.9, glucose 342, calcium 8.4, AST 8, ALT 8, alkaline phosphatase 110, protein 5.8, albumin 3.0. ASSESSMENT/PLAN: 1. Headache: This is likely hypertension-induced, but we are going to check a head CT now to rule out any acute intracranial abnormality. His lack of focal deficits is reassuring. We will continue bringing his blood pressure down slowly and then switch over to oral antihypertensives. 2. End stage renal disease on hemodialysis: He finished 20 minutes early from dialysis today. Dr. Palumbo has been consulted for assistance with medical management and dialysis regimen. 3. Hypertensive urgency: There does not appear to be any end-organ damage at this time; however, Nipride drip has been initiated. Will try to get this off as quick as possible and switch to his oral medications with p.r.n. intravenous hydralazine and labetalol. 4. Diabetes mellitus: Will continue his insulin pump, check hemoglobin A1c, add pattern sugars and sliding scale insulin. 5. Seizure disorder: Continue his Depakote and monitor. 6. Peripheral artery disease: We will continue his aspirin and Crestor. 7. Left lower extremity edema with a history of left lower extremity deep veinous thrombosis: We are going to check a left lower extremity Doppler ultrasound as the patient is currently not on any anticoagulants. 8. Deep vein thrombosis prophylaxis will be provided with subcutaneous heparin once head CT is deemed negative by radiology. Further recommendations to follow. Dictated by KATHY Hernandez for Gagan Kim MD Seen and examined pt; discussed case with SILK SCREEN REPAIRER cc: KATHY Hernandez MD [facility]
[2016-11-03] MEDS ORDERED: CARDURA PO ONE (22:08)
[2016-11-03] MEDS ORDERED: SUBCUTANEOUS INSULIN PUMP MC SCH (22:08)
[2016-11-03] MEDS ORDERED: COMPAZINE IV PRN (22:08)
[2016-11-03] MEDS ORDERED: FIORICET PO ONE (22:19)
[2016-11-03] MEDS: DEPAKOTE PO SCH (22:49)
[2016-11-03] MEDS: COREG PO SCH (22:50)
[2016-11-03] MEDS: LASIX PO SCH (22:50)
[2016-11-03] MEDS: HUMALOG SUBQ SCH (23:26)
[2016-11-03] MEDS: APRESOLINE PO SCH (23:34)
[2016-11-04] MEDS: NORCO-10 PO PRN (03:44)
[2016-11-04] MEDS: FLEXERIL PO PRN (04:30)
[2016-11-04] MEDS: ULTRACET 37.5MG/325MG PO PRN (04:54)
[2016-11-04] MEDS ORDERED: DILAUDID IV ONE (05:35)
[2016-11-04] MEDS: PHENERGAN IV PRN (05:47)
[2016-11-04] MEDS: SODIUM CHLORIDE 0.9% INJ PRN (05:47)
[2016-11-04] MEDS: HUMALOG SUBQ SCH ×5 (06:32→21:13)
[2016-11-04] MEDS ORDERED: SODIUM CHLORIDE 0.9% INJ ONE (07:42)
[2016-11-04] MEDS ORDERED: PHENERGAN IV ONE (07:42)
[2016-11-04] MEDS: CARDENE 20 MG/D5W 20 MG/200 ML PIGGYBACK IV SCH (07:54)
[2016-11-04 08:04] LABS: HEMATOCRIT 35.2 % (42.0-52.0); HEMOGLOBIN 12.1 g/dL (14.0-18.0); MCH 32.2 PG (27-31); MCHC 34.4 g/dL (33-37); MCV 93.6 FL (81-99); MPV 9.6 FL (7.4-10.4); RBC 3.76 XMIL (4.7-6.1)
[2016-11-04 08:19] LABS: HEMOGLOBIN A1C 8.7 % (4.8-6.0)
[2016-11-04 08:27] LABS: AGAP 17; ALBUMIN 2.9 g/dL (3.5-5.0); BUN 33 mg/dL (8-22); CALCIUM 8.3 mg/dL (8.8-10.2); CHLORIDE 97 mmol/L (98-107); COSMO 291; HDL 38 mg/dL (35-55); LDL 57 mg/dL; POTASSIUM 3.9 mmol/L (3.5-5.1); SODIUM 138 mmol/L (136-145); TCO2 24 mmol/L (25-35); TRIGLYCERIDES 148 mg/dL (39-160); VLDL 30 mg/dL
[2016-11-04] MEDS ORDERED: NORVASC PO SCH (09:00)
--- NOTE | 2016-11-04 10:08 | PROGRESS NOTE ---
DATE: 11/04/2016 SUBJECTIVE: At this moment, this patient is feeling a little bit better. His headache is better. He is sleepy, but arousable, following commands, and answering my questions. He is on nicardipine drip, and his blood pressure was above 200 in the morning, and after starting nicardipine drip is better. Will continue to monitor. OBJECTIVE: Vital Signs: Temperature 97.2 degrees, pulse 71, respiratory rate 17, blood pressure 172/99, oxygen saturation 100% on room air. HEENT: Head normocephalic. No trauma. PERRLA. Neck: Supple. No JVD. No masses. Central trachea. Chest: Clear to auscultation. Decreased breath sounds at the bases. Abdomen: Soft, nontender, nondistended. No hepatosplenomegaly. Extremities: Trace lower extremity edema with Charcot deformity, some toes amputated on the right and left side, right side first and second toe, and left side second and third toe, and like I mentioned before, he has feet deformity. LABORATORY DATA: WBC 8.5, hemoglobin 12.1, hematocrit 35.2, platelets 226,000. Sodium 138, potassium 3.9, chloride 97, bicarbonate 24, BUN 33, creatinine 6.8, glucose 239. Hemoglobin A1c 8.7. Calcium 8.3. Phosphorus 5.1. ASSESSMENT AND PLAN: 1. Hypertensive emergency. We will continue with nicardipine drip. The blood pressure is getting better. Today in the morning, it was above 200. Will continue to monitor this patient in the intensive care unit. 2. Headache, likely secondary to his high blood pressure. Continue to monitor. 3. End-stage renal disease, on hemodialysis. Scheduled Thursday, Thursday, and Thursday. Gastroenterology has been consulted and following this patient. 4. Diabetes. Apparently, this patient has an insulin pump. Hemoglobin A1c is elevated. Will continue with pattern of blood sugar every 4 hours and sliding scale insulin. I did not see his pump today, but I will request that to him and his family. 5. Seizure disorder. Continue with his Depakote, and monitor. 6. Peripheral artery disease. Continue with aspirin and Crestor. 7. History of left lower extremity deep venous thrombosis. He is not on any anticoagulation at this moment. I have been requested a lower extremity ultrasound to rule out deep venous thrombosis. 8. Deep vein thrombosis prophylaxis. Continue with subcutaneous heparin. CRITICAL CARE TIME: 35 minutes. cc: Ambrose Ho MD
--- NOTE | 2016-11-04 10:17 | CONSULTATION ---
DATE OF CONSULTATION: 11/04/2016 REASON FOR ADMISSION: Complaints of severe headache and hypertension. REASON FOR CONSULT: End-stage renal disease with assistance with medical management. CONSULTING PHYSICIAN: KATHY Gayle. HISTORY OF PRESENT ILLNESS: Mr. Toussaint is a 45-year-old male who is known to our outpatient services for hemodialysis on Thursday, Thursday, Thursday. Patient states that he had gone to his dialysis treatment yesterday. He routinely does get a headache on dialysis. He had 30 minutes left to his treatment and he signed off early and presented to the emergency room at [facility] for elevated blood pressure and severe headache. In the emergency room it was found that his blood pressure systolic was greater than 200 with some complaints of left-sided weakness and dizziness with standing. He denied chest pain. No increased work of breathing. No expressive aphasia or dysphasia. No weakness to bilateral extremities, just overall generalized. He was given multiple doses of labetalol and p.o. antihypertensives. Blood pressure did not come down. Subsequently he was started on Nipride drip and placed in the ICU for observation. Chest x- ray in the emergency room showed mild cardiomegaly, no acute diagnosis made. CT of the head was checked. This was done without contrast. It showed no hemorrhage, stable exam. Patient has denied any fever or chills. He has had chronic nausea with emesis in the last 24 hours. No diarrhea. Subsequently, he is in ICU at this time. He continues on Nipride and has had chronic emesis. He has received Phenergan 25 mg in the last hour, though he continues to throw up large amounts. PAST MEDICAL HISTORY: End-stage renal disease with hemodialysis on Thursday, Thursday, Thursday at the [facility], hypertension, diabetes mellitus type 2, obesity, history of seizure activity, peripheral artery disease, history of left lower extremity DVT, GERD, chronic pain, anemia of chronic disease, osteodystrophy of chronic disease. PREVIOUS SURGICAL HISTORY: Brain abscess drainage, history of dialysis catheter to the right chest wall. He has an AV graft to the left forearm, multiple toe amputations on both feet. FAMILY HISTORY: Alcohol abuse with mother and father. Diabetes mellitus with mother. Heart disease with female members of the family before age 65, multiple. Hypertension in mother, father, sister. Seizure disorders, father. SOCIAL HISTORY: Patient has family who are attentive to his care. Never smoker. Denies any alcohol or illicit drug use. REVIEW OF SYSTEMS: Times 10 with pertinent positives listed above in the HPI. CURRENT ALLERGIES: Listed as no known drug allergies. MEDICATIONS: Norvasc, aspirin, Coreg, Flexeril, Depakote, Lasix, glucagon, hydrocodone, Prinivil, Crestor, insulin pump, Ultram. Patient also receives Aranesp, IV iron, Ferrlecit, Protonix as indicated, along with Rocaltrol and a binder at the outpatient clinic as indicated by labs. VITAL SIGNS: His temperature is 97.6 degrees, blood pressure 189/90, heart rate 63, respirations 12. He is on room air. Last recorded saturation 96%. He has had 419 out. He has had 200+ greater than emesis. LABS: Sodium 138, potassium 3.9, chloride 97, CO2 24, BUN 33, creatinine 6.8, glucose 239, anion gap 17, calcium 8.3, phosphorus 5.1, albumin 2.9. White count 8.52, hemoglobin 12.1, hematocrit 35.2, with a platelet count of 226,000. CT of the head and chest x-ray as mentioned above. PHYSICAL EXAMINATION: General: This is a 45-year-old male. He is currently resting in bed. He is in mild to moderate distress secondary to having severe emesis. Skin: Warm and dry. Slightly diaphoretic. HEENT: Atraumatic, normocephalic. Pupils are equal. Conjunctivae pink. Neck: Supple. Trachea midline. No JVD. Cardiovascular: He is regular rate and rhythm alternating with sinus caroline on the monitor during his periods of emesis, possibly secondary to vagal stimulation. GI: He has a soft abdomen. It is nontender. Positive bowel sounds. Genitourinary: Not inspected. Minimal void with dialysis assist. Extremities: Have increased edema of 1 to 2+ on the left. Trace edema on the right. He does have diminished pulses. Neurological: He is alert and oriented x3, though lethargic. ASSESSMENT AND PLAN: 1. End-stage renal disease. Patient had his routine dialysis treatment yesterday. He only cut it short for 20 minutes. He does not appear in any fluid volume overload. No indications for further intervention today. 2. Hypertension associated with his nausea and vomiting. Patient is on Nipride drip. We will stop this secondary to its possible toxicity. We will change this to Cardene to titrate to a systolic of less than 160 and a diastolic of 90. Patient continues on p.o. medicines when tolerated. We will hold his Norvasc. 3. Nausea and vomiting. Patient has already been given 1 dose of Phenergan 25 mg. This has not assisted the patient in his emesis. We will repeat this dose x1. 4. Electrolytes. These remain stable. 5. Acid-base balance. This is at target with a mild anion gap acidosis secondary to his emesis. 6. Anemia. This remains in target. 7. Seizure disorders. Patient has been resumed on his Depakote. Followed by the primary care team. I would like to thank you for allowing us to follow with this patient. Dictated by KATHY Quevedo for Parviz Palumbo MD Patient seen, data reviewed, discussed with Karin Velez on 11/04/16. I agree with the above assessment and plan of care. cc: KATHY Quevedo MD [facility]
[2016-11-04] MEDS: CRESTOR PO SCH (10:25)
[2016-11-04] MEDS: DEPAKOTE PO SCH ×2 (10:25→21:13)
[2016-11-04] MEDS: COREG PO SCH ×2 (10:26→21:12)
[2016-11-04] MEDS: APRESOLINE PO SCH ×2 (10:26→21:12)
[2016-11-04] MEDS: PRINIVIL PO SCH (10:26)
[2016-11-04] MEDS: LASIX PO SCH ×2 (10:26→21:12)
[2016-11-04] MEDS: ASPIRIN PO SCH (10:26)
[2016-11-04] MEDS: CARDURA PO SCH (10:29)
[2016-11-05] MEDS: PHENERGAN IV PRN ×2 (00:30→15:49)
[2016-11-05] MEDS: NORCO-10 PO PRN ×2 (00:30→10:04)
[2016-11-05] MEDS: FLEXERIL PO PRN (00:36)
[2016-11-05] MEDS: SODIUM CHLORIDE 0.9% INJ PRN ×2 (00:36→15:50)
[2016-11-05] MEDS: CARDENE 20 MG/D5W 20 MG/200 ML PIGGYBACK IV SCH ×5 (00:50→23:37)
[2016-11-05] MEDS: HUMALOG SUBQ SCH ×6 (01:00→20:29)
[2016-11-05] MEDS ORDERED: TIGHT: 0.2 ML/HR MISC PRN (07:37)
[2016-11-05] MEDS ORDERED: HEPARIN IV PRN (07:37)
[2016-11-05] MEDS ORDERED: NS 2,000 ML MISC PRN (07:37)
[2016-11-05] MEDS ORDERED: NS 2,000 ML ONE (07:55)
[2016-11-05] MEDS ORDERED: HEPARIN ONE (07:55)
[2016-11-05] MEDS ORDERED: LANTUS SUBQ SCH (09:00)
[2016-11-05 09:36] LABS: HEMATOCRIT 32.6 % (42.0-52.0); MCHC 33.7 g/dL (33-37); MCV 94.8 FL (81-99); MPV 9.5 FL (7.4-10.4); RBC 3.44 XMIL (4.7-6.1)
[2016-11-05] MEDS ORDERED: NORCO-10 ONE (09:53)
--- NOTE | 2016-11-05 10:40 | PROGRESS NOTE ---
DATE: 11/05/2016 SUBJECTIVE: At this moment, this patient is feeling better. He is still complaining of mild headache. His blood pressure looks better. We are going to stop the nicardipine drip. We will start this patient on p.o. medications. OBJECTIVE: Vital Signs: Temperature 99.9 degrees, pulse 82, respiratory rate 12, blood pressure at this moment in dialysis 106/63, oxygen saturation 94% on room air. HEENT: Head normocephalic. No trauma. PERRLA. Neck supple. No JVD. No masses. Central trachea. Chest: Decreased breath sounds globally mostly at the bases. Abdomen is soft, nontender, nondistended. No hepatosplenomegaly. Extremities: No edema. No clubbing. No cyanosis. He has Charcot deformity; some toes amputated on the right and left side. The right side the 1st and 2nd toe and the left side the 2nd and 3rd toe and. Like I mentioned before, he has feet deformity. LABORATORY: WBC 8.1, hemoglobin 11, hematocrit 32.6, platelets 247,000. Glucose 195. ASSESSMENT AND PLAN: 1. Hypertensive emergency, resolved. He has been on nicardipine drip but now the blood pressure is better. We will stop this medication and this patient back on p.o. medication. 2. Headache. He is still complaining of mild headache but, compared with the previous days, he is much better. This is likely secondary to high blood pressure. 3. End-stage renal disease. On hemodialysis at this moment. We will continue to monitor. 4. Diabetes. Apparently, this patient has an insulin pump, but he is not using it this moment. I will put this patient on Lantus 8 and sliding scale insulin. Once this patient brings in his pump, I will restart his treatment. 5. Seizure disorder. Continue with Depakote and monitor. 6. Peripheral artery disease. Continue with aspirin and Crestor. 7. History of left lower extremity deep venous thrombosis. He is not on any anticoagulant at this moment. 8. Deep venous thrombosis. Continue with subcutaneous heparin. CRITICAL CARE TIME: 35 minutes. cc: Ambrose Ho MD
[2016-11-05 11:01] LABS: CALCIUM 7.4 mg/dL (8.8-10.2); POTASSIUM 3.4 mmol/L (3.5-5.1)
[2016-11-05] MEDS: DEPAKOTE PO SCH ×2 (13:07→20:19)
[2016-11-05] MEDS: APRESOLINE PO SCH ×2 (13:08→20:19)
[2016-11-05] MEDS: ASPIRIN PO SCH (13:08)
[2016-11-05] MEDS: COREG PO SCH ×2 (13:08→20:19)
[2016-11-05] MEDS: CRESTOR PO SCH (13:08)
[2016-11-05] MEDS: LASIX PO SCH ×2 (13:08→20:19)
[2016-11-05] MEDS: PRINIVIL PO SCH (13:08)
[2016-11-05] MEDS: CARDURA PO SCH (13:08)
--- NOTE | 2016-11-05 19:35 | PROGRESS NOTE ---
DATE: 11/05/2016 SUBJECTIVE: His headache is much better since we discontinued the Nipride. No nausea, vomiting or other complaints. OBJECTIVE: Vital Signs: Blood pressure 150/83, heart rate 78, respirations 13, afebrile. Generally: He is in no acute distress. Skin: Warm and dry. Conjunctivae are pink. Neck: Neck veins are not distended. Heart: Regular with S4 gallop. Lungs: Have equal breath sounds. No crackles or wheezes. Abdomen: Soft, nontender. Bowel sounds are present. Extremities: Have no edema, clubbing, or cyanosis. LABORATORY DATA: Sodium 137, potassium 3.4, chloride 98, bicarbonate 26, BUN 31, creatinine 6.5. IMPRESSION: 1. Hypertensive urgency. I will transition to p.o. today. 2. End-stage kidney disease. He will have his routine hemodialysis. 3. Electrolytes/acid base. Acceptable. 4. Anemia. Is in target. cc: Parviz Palumbo MD
[2016-11-05] MEDS: NORVASC PO SCH (20:19)
[2016-11-06] MEDS: HUMALOG SUBQ SCH ×6 (01:30→20:29)
[2016-11-06 05:16] LABS: HEMOGLOBIN 11.1 g/dL (14.0-18.0); MCH 31.6 PG (27-31); MCHC 33.6 g/dL (33-37); MPV 9.4 FL (7.4-10.4); RBC 3.51 XMIL (4.7-6.1)
[2016-11-06 06:08] LABS: ALBUMIN 2.8 g/dL (3.5-5.0); POTASSIUM 3.7 mmol/L (3.5-5.1)
[2016-11-06] MEDS: CARDENE 20 MG/D5W 20 MG/200 ML PIGGYBACK IV SCH ×3 (06:30→16:25)
[2016-11-06] MEDS: DEPAKOTE PO SCH ×2 (08:36→20:23)
[2016-11-06] MEDS: PRINIVIL PO SCH (08:36)
[2016-11-06] MEDS: LANTUS SUBQ SCH (08:36)
[2016-11-06] MEDS ORDERED: INSULIN PEN NEEDLES ONE (08:36)
[2016-11-06] MEDS: LASIX PO SCH ×2 (08:37→20:23)
[2016-11-06] MEDS: CARDURA PO SCH (08:37)
[2016-11-06] MEDS: CRESTOR PO SCH (08:37)
[2016-11-06] MEDS: ASPIRIN PO SCH (08:37)
[2016-11-06] MEDS: COREG PO SCH ×2 (08:37→20:23)
[2016-11-06] MEDS: APRESOLINE PO SCH ×2 (08:37→20:23)
[2016-11-06] MEDS: NORVASC PO SCH (08:40)
--- NOTE | 2016-11-06 09:52 | PROGRESS NOTE ---
DATE: 11/06/2016 SUBJECTIVE: This patient is feeling good. He is not complaining of headache. He is tolerating p.o. We are still using the nicardipine drip because his blood pressure has been high on and off. Nephrology Department is following this patient. This patient uses an insulin pump at home, but this one is broken and he is waiting for a new one that is going to be provided next Thursday. OBJECTIVE: Vital Signs: Temperature 99.3 degrees, pulse 77, respiratory rate 12, blood pressure 134/82, oxygen saturation 98 on 2 L of nasal cannula. HEENT: Head normocephalic. No trauma. PERRLA. Neck: Supple. No JVD. No masses. Central trachea. Chest: Decreased breath sounds globally, mostly at the bases. Abdomen: Soft, nontender, nondistended. No hepatosplenomegaly. Extremities: No edema. No clubbing. No cyanosis. He has Charcot deformity and some toes amputated on the on the right side first and second toe, and on the left side second and third toe. LABORATORY: WBC 6.6, hemoglobin 11.1, hematocrit 33.0 platelets 150. Sodium 137, potassium 3.7, chloride 96, bicarbonate 30, BUN 33, creatinine 7.7, glucose 327, calcium 8, albumin 2.8. ASSESSMENT AND PLAN: 1. Hypertensive emergency. The blood pressure is more stable, but he continues with nicardipine drip. Nephrology Department following this patient. We will continue following their recommendations. 2. Headache, resolved. 3. End-stage renal disease on hemodialysis. We will continue to monitor. 4. Diabetes. This patient has been using an insulin pump, but this one is broken. He will get a new one next Thursday. For now, I will continue with Lantus, but I will increase the dose from 8-12, and I will continue with sliding scale insulin and pattern blood sugar. 5. Seizure disorder. Continue with Depakote and monitor. 6. Peripheral artery disease. Continue with aspirin and Crestor. 7. History of left lower extremity deep vein thrombosis, aware. 8. Deep vein thrombosis prophylaxis. Continue with subcutaneous heparin. CRITICAL CARE TIME: 35 minutes. cc: Ambrose Ho MD
[2016-11-06] MEDS: PHENERGAN IV PRN (12:06)
[2016-11-06] MEDS: SODIUM CHLORIDE 0.9% INJ PRN (12:06)
--- NOTE | 2016-11-06 14:00 | PROGRESS NOTE ---
DATE: 11/06/2016 SUBJECTIVE: He is feeling well. No headaches. He is still on nicardipine drip. OBJECTIVE: Vital Signs: Blood pressure 115/52, heart rate 73, respirations 10, temperature 99.7 degrees. Generally, he is in no acute distress. Skin is warm and dry. Conjunctivae are pink. Heart is regular without gallops. Lungs have equal breath sounds. No crackles or wheezes. Abdomen soft, nontender. Bowel sounds present. Extremities have no edema, clubbing, or cyanosis. IMPRESSION: 1. End-stage kidney disease. He will be due for his next treatment tomorrow. 2. Hypertension. I will transition his p.o. amlodipine over to minoxidil. 3. Electrolytes/acid base/anemia all in target. cc: Parviz Palumbo MD
[2016-11-06] MEDS: LONITEN PO SCH (16:25)
[2016-11-06] MEDS: NORCO-10 PO PRN (16:29)
[2016-11-07] MEDS: HUMALOG SUBQ SCH ×6 (00:47→20:19)
[2016-11-07] MEDS: NORCO-10 PO PRN ×3 (01:17→19:32)
[2016-11-07] MEDS: PHENERGAN IV PRN ×3 (01:17→10:09)
[2016-11-07 05:51] LABS: ALBUMIN 2.9 g/dL (3.5-5.0)
[2016-11-07] MEDS ORDERED: TIGHT: 0.2 ML/HR MISC PRN (07:02)
[2016-11-07] MEDS ORDERED: NS 2,000 ML MISC PRN (07:02)
[2016-11-07] MEDS ORDERED: HEPARIN IV PRN (07:02)
[2016-11-07] MEDS: PRINIVIL PO SCH (07:59)
[2016-11-07] MEDS: DEPAKOTE PO SCH ×2 (07:59→20:15)
[2016-11-07] MEDS: APRESOLINE PO SCH ×2 (07:59→20:15)
[2016-11-07] MEDS: CARDURA PO SCH (07:59)
[2016-11-07] MEDS: CRESTOR PO SCH (08:00)
[2016-11-07] MEDS: LONITEN PO SCH (08:00)
[2016-11-07] MEDS: ASPIRIN PO SCH (08:00)
[2016-11-07] MEDS: COREG PO SCH ×2 (08:00→20:15)
[2016-11-07] MEDS: LASIX PO SCH ×2 (08:00→20:16)
[2016-11-07] MEDS: SODIUM CHLORIDE 0.9% INJ PRN ×2 (08:01→10:11)
--- NOTE | 2016-11-07 08:05 | PROGRESS NOTE ---
DATE: 11/07/2016 SUBJECTIVE: He states he is feeling well. No headaches. No nausea or vomiting. No shortness of breath. OBJECTIVE: Vital Signs: Blood pressure 148/91, heart rate 74, respirations 22, afebrile. Generally, he is in no acute distress. Skin is warm and dry. Conjunctivae are pink. Neck veins are not distended. Heart is regular with a gallop. Lungs have equal breath sounds. No crackles or wheezes. Abdomen soft, nontender. Bowel sounds present. Extremities have no edema, clubbing, or cyanosis. IMPRESSION: 1. End-stage kidney disease. He will have his routine hemodialysis today. 2. Hypertensive emergency. Blood pressure is much better, and he is off of the nicardipine drip. From my perspective, it is okay for him to transition to the floor today and home tomorrow if he is feeling well and ambulatory. 3. Electrolytes/acid base/anemia, all in target. cc: Parviz Palumbo MD
[2016-11-07] MEDS ORDERED: HEPARIN ONE (08:13)
[2016-11-07] MEDS ORDERED: NS 2,000 ML ONE (08:13)
[2016-11-07] MEDS: LANTUS SUBQ SCH (08:15)
--- NOTE | 2016-11-07 08:58 | Extremity Venous Study ---
PROCEDURE NAME: Venous U/S Bilateral Legs - 11/04/2016 REFERRING PHYSICIAN: Dr. Posey. AGE AND GENDER: 45-year-old male. BOATSWAINS MATE: Lyubov Aldrich RVT. INDICATIONS: Swelling of the limb ICD-10 M79.89. FINDINGS: The right common femoral vein and its branches, deep and superficial femoral veins were satisfactorily imaged. They had flow through them and were compressible. Right popliteal vein and the deep veins of the right knee were all compressible and had flow through them. The superficial veins the right lower extremity were compressible throughout their length. The left common femoral vein and its branches, deep and superficial femoral veins were also satisfactorily imaged. They had flow through them and were compressible. Left popliteal vein and the deep veins below the left knee were all compressible and have flow through them. The superficial veins of the left lower extremity were compressible throughout their length. INTERPRETATION: No evidence of acute deep or superficial venous thrombosis of the bilateral lower extremities. cc: MD Ambrose Bonds MD
[2016-11-07] MEDS ORDERED: EPOGEN SUBQ SCH (09:00)
[2016-11-07] MEDS: ULTRACET 37.5MG/325MG PO PRN (10:44)
--- NOTE | 2016-11-07 11:58 | PROGRESS NOTE ---
DATE: 11/07/2016 SUBJECTIVE: This patient states that he is feeling better. He is not complaining of headache today. He is tolerating p.o. He has been on and off with the nicardipine drip, but at this moment apparently he has been off nicardipine drip since last night. Blood pressure has been decent. This patient uses an insulin pump at home but the pump is broken, so he will get a new one next Thursday. For now, I will change the insulin Lantus to insulin Levemir from 20 units to 15 units. He has been having mild hypoglycemia with that dose of 20 units. OBJECTIVE: Vital Signs: Temperature 98.5, pulse 75, respiratory rate 11, blood pressure 132/59. Oxygen saturation 96 on room air. HEENT: Head normocephalic. No trauma. PERRLA. Neck: Supple. No JVD. No masses. Central trachea. Chest: Decreased breath sounds globally mostly at the bases. Abdomen: Soft, nontender, nondistended. No hepatosplenomegaly. Extremities: No edema. No clubbing. No cyanosis. He has Charcot deformity and some toes amputated on the right side 1st and 2nd toe and on the left side, 2nd and 3rd toe. LABORATORY: Sodium 135, potassium 4, chloride 92, bicarbonate 26, BUN 43, creatinine 7.8, glucose 162, calcium 8.2, phosphorus 6.1, BUN 2.9. ASSESSMENT AND PLAN: 1. Hypertensive emergency. Better controlled. Blood pressure is more stable. He has been off nicardipine drip since yesterday night. I will transfer this patient to the floor. 2. Headache, resolved. 3. End-stage renal disease, on hemodialysis. Continue to monitor. 4. Diabetes. I have switched his insulin Lantus to insulin Levemir, and I decreased the dose from 20 units to 15 units because he has been having hypoglycemia. Will monitor. 5. Seizure disorder. Continue with Depakote and monitor. 6. Peripheral artery disease. Continue with aspirin and Crestor. 7. History of left lower extremity deep vein thrombosis, aware. 8. Deep vein thrombosis prophylaxis. Continue with subcutaneous heparin. We did a lower extremity ultrasound to rule out deep vein thrombosis. Results: No evidence of acute deep or superficial venous thrombosis. This patient looks more stable. I will transfer this patient to the medical floor. cc: Ambrose Ho MD
[2016-11-08] MEDS: HUMALOG SUBQ SCH ×4 (00:54→13:36)
[2016-11-08] MEDS: NORCO-10 PO PRN ×2 (00:54→07:58)
[2016-11-08] MEDS: ULTRACET 37.5MG/325MG PO PRN (04:18)
[2016-11-08 06:26] LABS: ALBUMIN 2.8 g/dL (3.5-5.0); CALCIUM 7.9 mg/dL (8.8-10.2); POTASSIUM 3.7 mmol/L (3.5-5.1)
[2016-11-08] MEDS: PHENERGAN IV PRN ×2 (07:58→14:32)
[2016-11-08] MEDS: SODIUM CHLORIDE 0.9% INJ PRN ×2 (07:59→14:33)
[2016-11-08] MEDS ORDERED: LEVEMIR SUBQ SCH (09:00)
[2016-11-08] MEDS: COREG PO SCH (09:46)
[2016-11-08] MEDS: DEPAKOTE PO SCH (09:46)
[2016-11-08] MEDS: APRESOLINE PO SCH (09:47)
[2016-11-08] MEDS: CRESTOR PO SCH (09:47)
[2016-11-08] MEDS: ASPIRIN PO SCH (09:47)
[2016-11-08] MEDS: LASIX PO SCH (09:47)
[2016-11-08] MEDS: CARDURA PO SCH (09:47)
[2016-11-08] MEDS: PRINIVIL PO SCH (09:47)
[2016-11-08] MEDS: LONITEN PO SCH (09:48)
--- NOTE | 2016-11-08 12:45 | PROGRESS NOTE ---
DATE: 11/08/2016 SUBJECTIVE: He states his headache still goes and comes but overall better. He has been able to eat and ambulate. No shortness of breath. OBJECTIVE: Vital Signs: Blood pressure 139/77, heart rate 70, respirations 16, afebrile. General: He is in no distress. Skin: Warm and dry. HEENT: Conjunctivae are pink. Neck: Neck veins not examined. Lungs: Have equal breath sounds. No crackles. Abdomen: Soft, nontender. Bowel sounds present. Extremities: Have no edema. IMPRESSION: 1. End-stage kidney disease. He is well dialyzed. 2. Hypertensive urgency. Improved. His medications have been modified and he can be discharged on his current list. 3. Electrolytes/acid base in target. 4. Anemia in target. cc: Parviz Palumbo MD
[2016-11-08 14:50] VITALS: BP 111/67
--- NOTE | 2016-11-09 18:42 | DISCHARGE SUMMARY ---
ADMISSION DATE: 11/03/2016 DISCHARGE DATE: 11/08/2016 DISCHARGE DIAGNOSES: 1. Hypertensive emergency/resolved. 2. Headache. 3. End-stage renal disease, on hemodialysis. 4. Type 2 diabetes. 5. Seizure disorder. 6. Peripheral artery disease. 7. History of left lower extremity deep vein thrombosis. CONSULTATIONS: Nephrology Department, Dr. Palumbo. HOSPITAL COURSE: A 45-year-old male, with a past medical history of end-stage renal disease, seizure disorder, type 2 diabetes and hypertension, who presented to the emergency department and was admitted on 11/03/2016 with a chief complaint of headache, severe, constant and throbbing in the left frontal area, associated with visual changes. In the emergency department, he was noted to have a systolic blood pressure around 200. He stopped dialysis about 20 minutes early, and came to the emergency department. Also, he was complaining of some subjective left- sided weakness and dizziness. After getting multiple rounds of antihypertensive medication in the emergency department, we decided to hospitalize this patient in the ICU. He was placed on nicardipine drip. Since this patient has end-stage renal disease and he has been on hemodialysis, we consulted Dr. Palumbo from Nephrology. This patient spent some days in the ICU, and his blood pressure was going up and down, and sometimes we needed to restart again the nicardipine drip. The Nephrology Department was taking care of his blood pressure. One day previous to his discharge, he was feeling much better. He was tolerating p.o. ambulating, tolerating he has dialysis, and the blood pressure was stable. So this is why we decided to discharge this patient on 11/08/2016. He will follow up with his primary care doctor and his routine hemodialysis. This patient has diabetes type 2 and he uses an insulin pump at home, that is no working at this moment, so, apparently, he is going to receive 1 insulin pump next Thursday. So, upon discharge, I will send this patient with insulin Levemir and, on Thursday, he will restart his insulin pump. During the course of his hospitalization, we were able to control his blood pressure with insulin subcu. At the moment of discharge, this patient was in stable condition, tolerating p.o. and, like I said, ambulating. PHYSICAL EXAMINATION: Vital signs: Temperature 97.8 degrees, pulse 75, respiratory rate 16, blood pressure 111/67, oxygen saturation 98% on room air. HEENT: Head normocephalic. No trauma. PERRLA. Neck: Supple. No JVD. No masses. Central trachea. Chest: Clear to auscultation. No wheezing. No rales. Cardiovascular: RRR. No murmurs. Abdomen: Soft, nontender, nondistended. No hepatosplenomegaly. EXTREMITIES: No edema. No clubbing. No cyanosis. He has Charcot deformity and some toes amputated on the right side, the first and second toes, and on the left side, second and third toes. LABORATORY: Sodium 139, potassium 3.7, chloride 97, bicarbonate 29, BUN 31, creatinine 7, glucose 131, calcium 7.9, phosphorus 5.6, albumin 2.8. FOLLOWUP: Follow with his primary care doctor, and also follow up with Dr. Palumbo, his retail account manager, and continue with his routine hemodialysis. DISCHARGE MEDICATIONS: Doxazosin 4 mg p.o. daily, Epogen 10,000 units subcu every Thursday, Thursday and Thursday, Levemir 15 units subcu every morning, minoxidil 10 mg p.o. daily, hydralazine 50 mg p.o. twice a day, furosemide 40 mg p.o. twice a day, carvedilol 12.5 mg p.o. twice a day, lisinopril 20 mg p.o. daily, tramadol 50 mg p.o. q.6 hours p.r.n., Crestor 20 mg p.o. daily, aspirin 81 mg p.o. daily, Flexeril 10 mg p.o. 3 times a day as needed, [place] 10 at 1 tablet p.o. q.4 hours p.r.n. as needed. TIME SPENT: Time discharging this patient 35 minutes. cc: Ambrose Ho MD
== END 2016-11-08 15:18 | disposition home or self-care (01) ==
LOC: ED 11:08 → SUATTDRO 21:41 → ICU 21:41 → 4N 11-07 22:23
PROVIDERS: ATTEND Internal Medicine

== ENCOUNTER 2016-11-22 05:02 | Inpatient (IN) ==
[2016-11-22] MEDS ORDERED: NS 1,000 ML IV ONE ×2 (05:47→09:47)
[2016-11-22] MEDS ORDERED: ZOFRAN IV ONE (05:49)
[2016-11-22] MEDS ORDERED: MORPHINE IV ONE (06:33)
[2016-11-22] MEDS ORDERED: DILAUDID IV ONE ×2 (06:35→09:02)
[2016-11-22] MEDS ORDERED: DILAUDID ONE ×2 (06:36→09:00)
[2016-11-22 07:08] LABS: ALBUMIN 3.3 g/dL (3.5-5.0); CALCIUM 8.4 mg/dL (8.8-10.2); POTASSIUM 5.1 mmol/L (3.5-5.1); TOTAL BILIRUBIN 0.38 mg/dL (0.20-1.00); TOTAL PROTEIN 6.7 g/dL (6.3-8.3)
[2016-11-22 08:14] LABS: MANUAL DIFF NEEDED? NO
[2016-11-22 08:16] LABS: BASO% 0.6 % (0.0-0.8); EOS# 0.13 X1000 (0.0-0.7); EOS% 2.4 % (0.0-10.0); HEMATOCRIT 29.9 % (42.0-52.0); HEMOGLOBIN 9.9 g/dL (14.0-18.0); LYMPH# 1.44 X1000 (1.2-3.4); LYMPH% 26.6 % (20.5-51.1); MCH 31.9 PG (27-31); MCHC 33.1 g/dL (33-37); MCV 96.5 FL (81-99); MONO# 0.48 X1000 (0.11-0.59); MONO% 8.9 % (1.7-9.3); MPV 9.5 FL (7.4-10.4); NEUT% 61.5 % (42.2-75.2); PLT 234 X1000 (130-400)
[2016-11-22] MEDS ORDERED: LEVEMIR SUBQ SCH (09:47)
[2016-11-22] MEDS ORDERED: MORPHINE IV PRN (09:47)
[2016-11-22] MEDS ORDERED: DEPAKOTE PO SCH (09:47)
[2016-11-22] MEDS ORDERED: ZOFRAN IV PRN (09:47)
[2016-11-22] MEDS ORDERED: ASPIRIN PO SCH (09:47)
[2016-11-22 10:08] LABS: AMYLASE 36 U/L (20-200); LIPASE 7 U/L (13-60)
[2016-11-22 10:49] VITALS: BP 100/56
[2016-11-22] MEDS ORDERED: HUMULIN R SUBQ SCH (11:00)
[2016-11-22] MEDS ORDERED: INSULIN PEN NEEDLES ONE (13:46)
[2016-11-24] MEDS ORDERED: EPOGEN SUBQ SCH (09:00)
== END 2016-11-22 17:00 | disposition home or self-care (01) ==
LOC: ED 05:02 → 4N 09:34
PROVIDERS: ATTEND Internal Medicine

== ENCOUNTER 2016-11-23 20:30 | Inpatient (IN) ==
[2016-11-23] MEDS ORDERED: NS 2,000 ML ONE (20:54)
[2016-11-23] MEDS ORDERED: NS 1,000 ML IV ONE ×3 (21:22→21:23)
[2016-11-23] MEDS ORDERED: LEVOPHED 8 MG in D5 1/2 NS 250 ML IV SCH (21:30)
[2016-11-23] MEDS ORDERED: D50W SYRINGE IV ONE ×2 (21:44)
[2016-11-23 22:41] LABS: MANUAL DIFF NEEDED? NO
[2016-11-23 22:42] LABS: BASO% 0.9 % (0.0-0.8); EOS# 0.18 X1000 (0.0-0.7); EOS% 4.1 % (0.0-10.0); HEMATOCRIT 32.2 % (42.0-52.0); LYMPH# 2.09 X1000 (1.2-3.4); LYMPH% 47.1 % (20.5-51.1); MCH 32.3 PG (27-31); MCHC 34.2 g/dL (33-37); MCV 94.4 FL (81-99); MONO# 0.56 X1000 (0.11-0.59); MONO% 12.6 % (1.7-9.3); MPV 10.4 FL (7.4-10.4); NEUT% 35.3 % (42.2-75.2); PLT 262 X1000 (130-400); RBC 3.41 XMIL (4.7-6.1)
[2016-11-23] MEDS ORDERED: D5 NS 1,000 ML IV ONE (23:40)
[2016-11-24 00:07] LABS: ALBUMIN 3.6 g/dL (3.5-5.0); CALCIUM 7.8 mg/dL (8.8-10.2); TOTAL BILIRUBIN 0.4 mg/dL (0.20-1.00); TOTAL PROTEIN 6.1 g/dL (6.3-8.3)
[2016-11-24] MEDS ORDERED: SODIUM CHLORIDE 0.9% INJ ONE (03:26)
[2016-11-24] MEDS ORDERED: PHENERGAN IV ONE (03:26)
[2016-11-24] MEDS ORDERED: TYLENOL PO PRN (03:27)
[2016-11-24] MEDS ORDERED: ZOFRAN IV PRN (03:27)
[2016-11-24 04:14] LABS: INR 1.08; PROTIME 11.4 Seconds (9.2-11.7)
[2016-11-24] MEDS ORDERED: NS 500 ML IV ONE (04:56)
[2016-11-24] MEDS ORDERED: NS 1,000 ML ONE (04:56)
[2016-11-24 05:58] LABS: MANUAL DIFF NEEDED? NO
[2016-11-24 05:59] LABS: BASO% 0.6 % (0.0-0.8); EOS# 0.15 X1000 (0.0-0.7); EOS% 2.8 % (0.0-10.0); HEMATOCRIT 29.4 % (42.0-52.0); HEMOGLOBIN 10.1 g/dL (14.0-18.0); LYMPH# 1.83 X1000 (1.2-3.4); LYMPH% 34.4 % (20.5-51.1); MCH 32.5 PG (27-31); MCHC 34.4 g/dL (33-37); MCV 94.5 FL (81-99); MONO# 0.73 X1000 (0.11-0.59); MONO% 13.7 % (1.7-9.3); MPV 9.4 FL (7.4-10.4); NEUT% 48.5 % (42.2-75.2); PLT 228 X1000 (130-400); RBC 3.11 XMIL (4.7-6.1)
[2016-11-24] MEDS: D5 NS 1,000 ML IV SCH ×2 (07:20→13:53)
[2016-11-24 07:26] LABS: CALCIUM 7.7 mg/dL (8.8-10.2); POTASSIUM 4.6 mmol/L (3.5-5.1)
[2016-11-24] MEDS ORDERED: NS 2,000 ML MISC PRN (08:10)
[2016-11-24] MEDS ORDERED: TIGHT: 0.2 ML/HR MISC PRN (08:10)
[2016-11-24] MEDS ORDERED: HEPARIN IV PRN (08:10)
[2016-11-24] MEDS: ASPIRIN PO SCH (08:42)
[2016-11-24] MEDS: DEPAKOTE PO SCH ×2 (08:43→20:26)
[2016-11-24] MEDS: HEPARIN SUBQ SCH ×2 (08:44→20:26)
[2016-11-24] MEDS: EPOGEN SUBQ SCH (08:44)
[2016-11-24] MEDS ORDERED: HEPARIN ONE (09:05)
[2016-11-24] MEDS ORDERED: NS 2,000 ML ONE (09:05)
[2016-11-24 15:52] LABS: CK INDEX 2.3 (0.0-2.5); CK-MB 5.26 ng/mL (0.0-5.0)
[2016-11-24] MEDS: HUMULIN R SUBQ SCH (20:26)
[2016-11-24 23:16] LABS: CK INDEX 1.6 (0.0-2.5); CK-MB 4.52 ng/mL (0.0-5.0)
[2016-11-25] MEDS: PROTONIX PO SCH (06:12)
[2016-11-25] MEDS: HUMULIN R SUBQ SCH ×4 (06:12→22:41)
[2016-11-25] MEDS: DEPAKOTE PO SCH ×2 (08:25→22:39)
[2016-11-25] MEDS: HEPARIN SUBQ SCH ×2 (08:25→22:39)
[2016-11-25] MEDS: ASPIRIN PO SCH (08:25)
[2016-11-26] MEDS: HUMULIN R SUBQ SCH ×2 (06:05→12:10)
[2016-11-26] MEDS: PROTONIX PO SCH (06:07)
[2016-11-26] MEDS ORDERED: TIGHT: 0.2 ML/HR MISC PRN (07:27)
[2016-11-26] MEDS ORDERED: NS 2,000 ML MISC PRN (07:27)
[2016-11-26] MEDS ORDERED: HEPARIN IV PRN (07:27)
[2016-11-26 07:32] VITALS: BP 158/76
[2016-11-26] MEDS ORDERED: NS 2,000 ML ONE (07:32)
[2016-11-26] MEDS ORDERED: HEPARIN ONE (07:32)
[2016-11-26 08:25] LABS: POTASSIUM 4.2 mmol/L (3.5-5.1)
[2016-11-26 08:26] LABS: ALBUMIN 3.2 g/dL (3.5-5.0); CALCIUM 7.5 mg/dL (8.8-10.2)
[2016-11-26] MEDS: EPOGEN SUBQ SCH (12:00)
[2016-11-26] MEDS: DEPAKOTE PO SCH (12:01)
[2016-11-26] MEDS: HEPARIN SUBQ SCH (12:01)
[2016-11-26] MEDS: ASPIRIN PO SCH (12:01)
== END 2016-11-26 14:27 | disposition home or self-care (01) ==
LOC: 4N 20:30 → ED 20:30 → SUATTDRO 11-24 02:00 → OBSVTOIN 11-24 02:00 → EDIPHOLD 11-24 03:47 → ICU 11-24 09:58 → 3N 11-25 13:14
PROVIDERS: ATTEND Emergency Medicine

== ENCOUNTER 2018-04-15 06:45 | Inpatient (IN) ==
--- NOTE | 2018-04-12 09:10 | EKG Report ---
Test Performed on : 04/12/2018 08:54:20 AM Test Reason : PAT Blood Pressure : / mmHG Vent. Rate : 080 BPM Atrial Rate : 080 BPM P-R Int : 176 ms QRS Dur : 100 ms QT Int : 380 ms P-R-T Axes : 032 025 125 degrees QTc Int : 438 ms Normal sinus rhythm. Nonspecific T wave abnormality Abnormal ECG When compared with ECG of 24-AUG-2017 05:20, T wave inversion less evident in Anterolateral leads Confirmed by Raissa MEJIA, Lalito Florez ([id number]) on 04/12/2018 5:35:57 PM
[2018-04-15] MEDS ORDERED: REGLAN ONE (07:25)
[2018-04-15] MEDS ORDERED: PEPCID ONE (07:25)
[2018-04-15] MEDS ORDERED: 1/2 NS 500 ML ONE (07:25)
[2018-04-15] MEDS ORDERED: KEFZOL 1 GM/D5W 2 GM/100 ML IVPB ONE (07:26)
[2018-04-15 07:52] LABS: HEMATOCRIT 32.9 % (42.0-52.0); HEMOGLOBIN 10.7 g/dL (14.0-18.0); MCH 31.4 PG (27-31); MCHC 32.5 g/dL (33-37); MCV 96.5 FL (81-99); MPV 9.4 FL (7.4-10.4); RBC 3.41 XMIL (4.7-6.1); RDW 13.1 % (11.5-14.5); WBC 6.18 X1000 (4.8-10.8)
[2018-04-15] MEDS ORDERED: DIPRIVAN 1% ONE (08:00)
[2018-04-15] MEDS ORDERED: QUELICIN (DOSE) ONE (08:05)
[2018-04-15] MEDS ORDERED: ZOFRAN ONE (08:05)
[2018-04-15] MEDS ORDERED: DECADRON ONE (08:05)
[2018-04-15] MEDS ORDERED: FENTANYL ONE (08:05)
[2018-04-15] MEDS ORDERED: DILAUDID ONE (08:06)
[2018-04-15 08:09] LABS: CALCIUM 8.7 mg/dL (8.8-10.2); POTASSIUM 4.1 mmol/L (3.5-5.1)
[2018-04-15 08:17] LABS: CREATININE 5.7 mg/dL (0.7-1.2)
[2018-04-15] MEDS ORDERED: VERSED ONE (10:08)
[2018-04-15 12:31] LABS: HEMATOCRIT 31.7 % (42.0-52.0); HEMOGLOBIN 10.2 g/dL (14.0-18.0)
--- NOTE | 2018-04-15 16:22 | OPERATIVE NOTE ---
PROCEDURE DATE: 04/15/2018 PREOPERATIVE DIAGNOSES: 1. Right Charcot midfoot with collapse. 2. Right Charcot hindfoot. 3. Right equinus contracture. 4. Right cuboid collapse. POSTOPERATIVE DIAGNOSES: 1. Right Charcot midfoot with collapse. 2. Right Charcot hindfoot. 3. Right equinus contracture. 4. Right cuboid collapse. PROCEDURES: 1. Right tendo-Achilles lengthening. 2. Right midtarsal multiple joint fusions with osteotomy. 3. Right partial excision of tarsal (cuboid). SURGEON: Dr. Tao Stapleton. CHILD WELFARE ASSISTANT: KATHY Maloney, who was an integral part of the case, helping with all aspects of the case, helping to increase our OR efficiency greatly. ANESTHESIA: General with LMA. ESTIMATED BLOOD LOSS: About 600 mL. TOURNIQUET TIME: Tourniquet was on and off trying to get it to work well. We eventually abandoned the tourniquet secondary to just having a venous tourniquet. He had good blood flow the whole time. IMPLANTS: Right medical [employer] set beaming screws. DISPOSITION: To PACU, hemodynamically stable. INDICATION FOR PROCEDURE: Mr. Toussaint is a 47-year-old male, whom I have taken care of his left side in the past for Charcot. He had developed an ulcer on his right side that we treated with total contact casting and got that healed. But, I discussed with him about surgical intervention and he expressed understanding and wished to proceed. DESCRIPTION OF PROCEDURE: Mr. Murali Toussaint was identified in the preop holding area. The right foot was marked out as the correct surgical site. He was then wheeled to the operating room, placed supine on the operating table. All bony prominences well padded. He was induced under general anesthesia. LMA was placed. Tourniquet was placed to the right thigh. Right lower extremity then prepped with chlorhexidine, gluconate scrub, and then ChloraPrep , and draped in normal sterile fashion. Surgical pause was performed. We identified the correct patient, the correct side, and the correct procedure. Preop antibiotics were given. Esmarch was used to exsanguinate the right lower extremity and tourniquet inflated 300 mmHg. Like I said, the tourniquet was sort of up and down trying to get it work for the 1st hour and then we ultimately abandoned it. I started with a medial incision over the midfoot. Dissection was carried down. The TMT joint looked almost auto fused at this point and then he had just a lot of collapse all through the navicular and navicular cuneiform joints. We ended having to do some dissection and removal of some of the navicular. Eventually came down on to the talar head and identified it, which was very plantar flex. Elevated full-thickness flaps both dorsally and plantarly and used a Shields elevator to help establish that plantar full-thickness flap. There was a huge collapse of midfoot on the plantar aspect more laterally, so I ended up starting with an exostectomy first. I took a sagittal saw and sawed down some of that cuboid and some the metatarsals that were very plantar oriented. It took a while but I was able to dig out a lot of that bone. I did have to make an incision on the lateral aspect of his foot to auto painter helper in that process, but I was able to get all of that bone out. That completed our exostectomy. At this point, then we made a midfoot osteotomy right in front of the talar head. I decided not to take a wedge out because he really did not have any forefoot abduction. So I mainly due the osteotomy so that we could correct his rocker bottom deformity. I then prepped the subtalar joint through that medial incision. I then prepped the talar head as well, denuding all the cartilage there and getting back to nice raw, bleeding bone. I was then able to fuse the subtalar joint. I got a guidewire up the subtalar joint and that looked good on both AP and lateral views. I put a 7.0 MUC screw and that held that very well. I then put a big Steinmann pin up the calcaneus into the talus as well and I was able to lever down. His Achilles was holding him a pretty good bit so ended up doing 3 small stab incisions and released the Achilles tendon. I had very good correction of his equinus deformity after that. I was then able to get that talus and calcaneus up where it needed to be. I was still not able to reduce the midfoot and forefoot to that area and after looking , there was still a little bit more plantar bone that was there and I resected more plantar bone. After I was able to do that and I was able to get his arch back lined up, I made a small incision over the distal aspect of the first metatarsal since he did not have a great toe. I got my guidewire in and passed it into the talus. Because of the position of all his toes going off into a little bit of metatarsus adductus, I was not going to be able to go down the second metatarsal and then into any real good bone. So I end up putting 2 more guidewires in on more the lateral aspect but really where the metatarsal bases start is where I started my guidewires and put 2 of those, 1 more midline in the middle column and then 1 more lateral and down into the calcaneus. After those looked good on fluoroscopic imaging, I then drilled and put the first column screw first and that was a solid screw. The other ones were cannulated, the was more lateral. We got really good compression across that osteotomy site and I had really good correction of our deformity. I then shot 1 more screw from posterior to anterior straight down the calcaneus. That stabilized our hindfoot and our midfoot. I really felt that he was very stable overall. Final images were taken which showed that we had good position of the foot and good position of all of our hardware. I then closed that deep fascia with 0 Vicryl, 2-0 Vicryl for the subcutaneous, and nylon on the skin. Adaptic, 4 x 4s, ABD, soft roll, and posterior splint was applied. Tourniquet was let down, like I said, after about a hour in the case and he had good blood flow throughout the rest the case. He was then awoke from general anesthesia, moved to his own bed, and taken to the PACU in stable condition. Postop, he will be nonweightbearing. He will be admitted to the hospital and we will continue to follow. cc: MD SILVER Elias
[2018-04-15] MEDS: KEFZOL 1 GM/D5W 1 GM/50 ML IVPB IV SCH (18:41)
--- NOTE | 2018-04-15 20:41 | CONSULTATION ---
DATE OF CONSULTATION: 04/15/2018 HISTORY OF PRESENT ILLNESS: A 47-year-old male who was operated today for right foot surgery due to Charcot midfoot with collapse and equinus contracture, basically lengthening of tendo-Achilles midtarsal multiple fusions, partial excision of the cuboid bone by Dr. Stapleton. Basically consulted for medical management. The patient is doing very well. is at bedside. He has end-stage kidney disease, on dialysis; he is due for dialysis tomorrow. He has known history of diabetes. He was seen in my office in December as a new patient. PAST MEDICAL HISTORY: Type 2 diabetes, end-stage kidney disease on dialysis 3 times a week with the left AV graft, history of epilepsy, hypertension, migraine headaches, complicated diabetes with neuropathy. PAST SURGICAL HISTORY: Amputation of great toe and 2nd on the right foot and 2nd and third toes on the left foot. Abscess of the brain in 2002. Reconstruction of the left ankle. AV graft in the left arm. MEDICINES: In my office: Amlodipine 10 daily. Coreg 12.5 p.o. b.i.d. Depakote 500 two tablets b.i.d. Hydralazine 100 t.i.d. Lasix 40 twice a day. Lisinopril 40 mg daily. NovoLog subcutaneous pump 100 units daily. Percocet as needed. Zofran as needed. ALLERGIES: Not known. SOCIAL HISTORY: He has been , 3 children, living in [place]. No smoking. No alcohol. FAMILY HISTORY: Father of brain aneurysm age 69. Mother is alive with diabetes. REVIEW OF SYSTEMS: HEENT: No headache. No vision problem. No earache. No sore throat. Neck: No goiter. No lymphadenopathy. No bruit. Cardiopulmonary: No chest pain, shortness of breath, PND, orthopnea. Gastrointestinal: No nausea/vomiting, abdominal pain. Musculoskeletal: His right foot has a cast noted. Neurological: No neurological symptoms. PHYSICAL EXAMINATION: Vital signs: On examination, his blood pressure is slightly high. Vitals are stable. HEENT: Atraumatic, normocephalic. Pupils equally react to light. Neck: Supple. No lymphadenopathy. Chest: Bilateral air entry. Heart: Sounds are regular. Abdomen: Belly is soft. Nontender. Good bowel sounds. Extremities: Decreased sensory exam in the left foot. No signs of gangrene. Neurological: No neurological deficits. DIAGNOSTIC STUDIES: CBC: White cell count 6.1, hematocrit 32, platelets 258, 000. SMA-7: Sodium 132, potassium 4.1, BUN 29, creatinine 5.7, glucose 153. EKG: Normal sinus, nothing acute. ASSESSMENT AND PLAN: A 47-year-old male, status post right foot surgery by Dr. Stapleton, basically came in for medical management as follows. 1. Type 2 diabetes, on insulin pump as directed. 2. End-stage kidney disease, on dialysis Thursday by Dr. Palumbo of left arteriovenous (AV) graft. 3. Peripheral neuropathy with chronic pain specialist 4. History of amputation of the toes, 2nd and 3rd. 5. Hypertension, on amlodipine 10 daily, lisinopril 40 daily, Coreg 12.5 b.i.d. hydralazine 100 t.i.d. 6. History of epilepsy on Depakote 500 two tablets b.i.d. Seizure-free for 1 year. 7. Atypical chest pain. Echocardiography showed LVH. Last stress test in June 2016 is negative. 8. Health maintenance. Flu vaccine 2018, pneumococcal 2012, tetanus 2017, colonoscopy [address] Saunders. We will reconcile home medications and will follow up. Once again, thanks for the referral. cc: MD Tao Westfall MD MTDD
[2018-04-15] MEDS: HUMULIN R SUBQ SCH ×2 (22:18→22:28)
[2018-04-15] MEDS: DEPAKOTE PO SCH (22:19)
[2018-04-15] MEDS: PERIDEX MT SCH (22:19)
[2018-04-15] MEDS: ELAVIL PO SCH (22:20)
[2018-04-15] MEDS: COREG PO SCH (22:20)
[2018-04-15] MEDS: ASPIRIN PO SCH (22:49)
[2018-04-16] MEDS: KEFZOL 1 GM/D5W 1 GM/50 ML IVPB IV SCH ×2 (01:44→16:34)
[2018-04-16 06:39] LABS: HEMATOCRIT 26.7 % (42.0-52.0); HEMOGLOBIN 8.5 g/dL (14.0-18.0)
[2018-04-16 06:44] LABS: POTASSIUM 4.2 mmol/L (3.5-5.1)
[2018-04-16 06:46] LABS: HEMOGLOBIN A1C 6.6 % (4.8-6.0)
[2018-04-16] MEDS: HUMULIN R SUBQ SCH ×5 (06:52→23:12)
[2018-04-16] MEDS: LOVENOX SUBQ SCH (06:52)
[2018-04-16 06:59] LABS: CREATININE 7.6 mg/dL (0.7-1.2)
[2018-04-16] MEDS ORDERED: HEPARIN IV PRN (08:23)
[2018-04-16] MEDS ORDERED: NS 2,000 ML MISC PRN (08:23)
[2018-04-16] MEDS ORDERED: TIGHT: 0.2 ML/HR FOR DIALYSIS MISC PRN (08:23)
[2018-04-16] MEDS: COREG PO SCH ×3 (08:44→23:12)
[2018-04-16] MEDS: OXY IR PO PRN ×3 (08:52→23:08)
--- NOTE | 2018-04-16 09:23 | PROGRESS NOTE ---
DATE: 04/16/2018 SUBJECTIVE DATA: Mr. Toussaint is sitting up in the bed. He states he is in quite a bit of pain. He notes that his pain is 10/10. OBJECTIVE DATA: On right lower extremity exam, the surgical splint is clean, dry, and intact. I can see the 3 toes that he has left. He does not have any sensation to those toes and has not for quite some time. He is able to move the toes a little. I do not see any significant drainage. ASSESSMENT: Status post right Charcot reconstruction. PLAN: Mr. Toussaint is still in quite a bit of pain. The plan is for him to go home with home health. We have consulted his family physician while he is in-house. I did discuss with him rehab versus home health and he does want to try and get home. We are going to work on managing his pain and get it a little better under control before we discharge him. Dictated by KATHY Maloney for Tao Stapleton MD cc: KATHY Maloney MD
[2018-04-16] MEDS: CYMBALTA PO SCH (16:35)
[2018-04-16] MEDS: DEPAKOTE PO SCH ×3 (16:35→23:12)
[2018-04-16] MEDS: APRESOLINE PO SCH ×3 (16:36→18:04)
[2018-04-16] MEDS: PRINIVIL PO SCH (16:36)
[2018-04-16] MEDS: PERIDEX MT SCH ×3 (16:37→23:12)
[2018-04-16] MEDS: ASPIRIN PO SCH ×3 (19:44→23:12)
[2018-04-16] MEDS: ELAVIL PO SCH ×2 (19:45→23:12)
--- NOTE | 2018-04-17 00:06 | PROGRESS NOTE ---
DATE: 04/16/2018 SUBJECT: Patient is in lot of pain. Appreciated Dr. Stapleton followup. Hematocrit is declining. REVIEW OF SYSTEMS: None reported. He is off on insulin pump. OBJECTIVE: Temperature is 99 degrees. Vitals are stable. 261 pounds.HEENT: Within normal limits. Neck: Supple. Chest: Clear. Heart: Sounds are regular. Belly: Soft, nontender. No obvious neurological deficits. INVESTIGATIONS: Hematocrit 26. ASSESSMENT AND PLAN: 1. Postoperative day 2 right foot surgery, stable. 2. Hematocrit 26, will transfuse 1 unit of packed RBCs during dialysis. 3. End-stage kidney disease on dialysis Thursday, Thursday, Thursday. 4. Reconcile home medicines. 5. Deep venous thrombosis prophylaxis with Lovenox. 6. Type 2 diabetes on sliding scale with insulin coverage. A1c is excellent and monitor over the weekend and will follow up. LEVEL OF DOCUMENTATION: 25 minutes. cc: MD Tao Westfall MD
--- NOTE | 2018-04-17 01:17 | NEPHROLOGY PROGRESS NOTE ---
DATE: 04/16/2018 CONTINUATION: OBJECTIVE: Vital Signs: Blood pressure 139/76, heart rate 73, respiration 18, afebrile. General: He is a middle-aged man, no acute distress. Skin is warm and dry. Conjunctivae are pink. Oropharynx is moist. Neck: Neck veins are not distended. Heart: Regular. Lungs: Equal. No crackles. Abdomen: Soft, nontender. Bowel sounds present. Extremities: Right foot is dressed. No edema, clubbing or cyanosis. IMPRESSION: Chronic kidney disease 5D. He is currently undergoing his routine dialysis. We will use his routine outpatient dialysis prescription. Electrolytes, acid-base are in target. His hemoglobin did fall this morning to 8.5. Observe but he may require transfusion. cc: MD Tao Esparza MD MTDD
--- NOTE | 2018-04-17 01:17 | NEPHROLOGY PROGRESS NOTE ---
DATE: 04/16/2018 REASON FOR CONSULTATION: Assistance with dialysis. HISTORY OF PRESENT ILLNESS: Mr. Toussaint is a 47-year-old man who is well known to me. He has diabetes with peripheral vascular disease and he requires renal replacement therapy with hemodialysis every Thursday, Thursday and Thursday. He has been dealing with an ongoing wound on the right foot that has been cared for by Dr. Stapleton. He was admitted for elective surgical revision. This morning he is complaining of pain and he is sleeping having received [place]. He was seen both on the floor and during his dialysis treatment. cc: MD Tao Esparza MD
[2018-04-17] MEDS: OXY IR PO PRN ×4 (03:50→21:00)
[2018-04-17] MEDS: LOVENOX SUBQ SCH (05:23)
[2018-04-17 06:17] LABS: HEMATOCRIT 30.1 % (42.0-52.0); HEMOGLOBIN 9.5 g/dL (14.0-18.0)
[2018-04-17] MEDS: HUMULIN R SUBQ SCH ×3 (06:20→17:24)
[2018-04-17 06:34] LABS: CALCIUM 8.5 mg/dL (8.8-10.2); POTASSIUM 3.9 mmol/L (3.5-5.1)
[2018-04-17 06:37] LABS: CREATININE 5.9 mg/dL (0.7-1.2)
[2018-04-17] MEDS: APRESOLINE PO SCH ×3 (10:08→17:24)
[2018-04-17] MEDS: PRINIVIL PO SCH (10:08)
[2018-04-17] MEDS: PERIDEX MT SCH ×2 (10:08→21:01)
[2018-04-17] MEDS: CYMBALTA PO SCH (10:09)
[2018-04-17] MEDS: DEPAKOTE PO SCH ×2 (10:09→21:01)
[2018-04-17] MEDS: COREG PO SCH ×2 (10:09→21:01)
--- NOTE | 2018-04-17 11:50 | PROGRESS NOTE ---
DATE: 04/17/2018 SUBJECTIVE: Mr. Toussaint is a 47-year-old gentleman, who had surgery for right ankle by Dr. Stapleton. He has chronic renal failure. He is on dialysis. BUN is 31, creatinine is 5.9. He also has diabetes. Diabetes is under fair control. He was seen by Dr. Palumbo yesterday. He dialysis is usually on Thursday, Thursday, and Thursday. We are going to continue the current management on him. -5 cc: MD Tao Guillaume MD
--- NOTE | 2018-04-17 14:39 | PROGRESS NOTE ---
DATE: 04/17/2018 CLINICAL HISTORY: The patient is a 47-year-old male who is 2 days status post right Charcot reconstruction per Dr. Stapleton. OBJECTIVE: The patient is sitting in a chair. Splint is intact. He has chronic decreased sensation in his toes. There is no evidence of drainage. DIAGNOSTIC DATA: His hemoglobin is 9.5, hematocrit is 30.1. IMPRESSION: Postop day number 2 status post right Charcot reconstruction. PLAN: At this point, the patient will continue with existing splint. He is currently undergoing evaluation by primary medical doctor and is continuing with his dialysis. cc: MD Tao Claudio MD
--- NOTE | 2018-04-17 17:37 | PROGRESS NOTE ---
DATE: 04/17/2018 SUBJECTIVE: Mr. Toussaint is lying in bed this morning. He is resting well. OBJECTIVE: Right lower extremity exam, splint is clean, dry, and intact. There is no bloody drainage anywhere. ASSESSMENT: Status post right Charcot midfoot reconstruction. PLAN: Mr. Toussaint is going to continue to be nonweightbearing right lower extremity. coordinator of rehabilitation services to be working with him for discharge planning for Thursday. cc: Tao Stapleton MD
[2018-04-17] MEDS: ELAVIL PO SCH (21:01)
[2018-04-17] MEDS: ASPIRIN PO SCH (21:01)
[2018-04-17] MEDS: MORPHINE IV PRN (22:20)
[2018-04-18] MEDS: HUMULIN R SUBQ SCH ×5 (00:04→20:49)
--- NOTE | 2018-04-18 01:06 | NEPHROLOGY PROGRESS NOTE ---
DATE: 04/17/2018 SUBJECTIVE: No complaints. He ate his lunch. No shortness of breath, nausea or vomiting. OBJECTIVE: Vital Signs: Blood pressure 140/71, heart rate 72, respiration 18, afebrile. General: No acute distress. Skin: Warm and dry. Conjunctivae are pink. Heart: Regular. Lungs: Equal. No crackles. Abdomen: Soft, nontender. Bowel sounds present. Extremities: With minimal edema. Right foot is dressed. IMPRESSION: Chronic kidney disease 5D. His next planned dialysis treatment will be Thursday. Electrolytes/acid base in target. His hemoglobin has stabilized. Blood pressure is within target. No changes. cc: MD Tao Esparza MD
[2018-04-18] MEDS: MORPHINE IV PRN ×3 (05:05→20:48)
[2018-04-18] MEDS: LOVENOX SUBQ SCH (05:06)
[2018-04-18] MEDS: APRESOLINE PO SCH ×3 (09:49→17:30)
[2018-04-18] MEDS: COREG PO SCH ×2 (09:49→20:48)
[2018-04-18] MEDS: PERIDEX MT SCH ×2 (09:49→20:47)
[2018-04-18] MEDS: DEPAKOTE PO SCH ×2 (09:49→20:48)
[2018-04-18] MEDS: CYMBALTA PO SCH (09:49)
[2018-04-18] MEDS: PRINIVIL PO SCH (09:49)
--- NOTE | 2018-04-18 11:59 | PROGRESS NOTE ---
DATE: 04/18/2018 Mr. Toussaint is recovering from his surgery. He is going to get dialysis tomorrow. His vital signs are stable. Blood sugars are stable. However, earlier it was 70 and he says that is when he woke up in the morning. He is to get hemodialysis tomorrow. We will continue the current management. -4 cc: MD Tao Guillaume MD
[2018-04-18] MEDS: ELAVIL PO SCH ×2 (20:48→22:18)
[2018-04-18] MEDS: ASPIRIN PO SCH (20:48)
[2018-04-19] MEDS: OXY IR PO PRN ×2 (02:53→14:37)
[2018-04-19] MEDS: MORPHINE IV PRN (05:22)
[2018-04-19] MEDS: LOVENOX SUBQ SCH (05:23)
[2018-04-19 06:27] LABS: ALBUMIN 2.8 g/dL (3.5-5.0); CALCIUM 8.6 mg/dL (8.8-10.2); PHOSPHORUS 10.4 mg/dL (2.7-4.5); POTASSIUM 5.2 mmol/L (3.5-5.1)
[2018-04-19] MEDS ORDERED: NS 2,000 ML MISC PRN (06:42)
[2018-04-19] MEDS ORDERED: TIGHT: 0.2 ML/HR FOR DIALYSIS MISC PRN (06:42)
[2018-04-19] MEDS ORDERED: HEPARIN IV PRN (06:42)
[2018-04-19 07:45] VITALS: BP 123/69
[2018-04-19] MEDS: PERIDEX MT SCH (09:26)
[2018-04-19] MEDS: APRESOLINE PO SCH (12:28)
[2018-04-19] MEDS: HUMULIN R SUBQ SCH (12:28)
--- NOTE | 2018-04-19 13:08 | PROGRESS NOTE ---
DATE: 04/19/2018 SUBJECTIVE: Mr. Toussaint is down in dialysis this morning. He is resting well in his bed. OBJECTIVE: Right lower extremity: Splint is clean, dry, and intact. Toes look good. ASSESSMENT: Status post right midfoot and hindfoot Charcot reconstruction. PLAN: We will discharge Mr. Toussaint today after his dialysis and then, he will see us in clinic in 1 week from today. He is nonweightbearing right lower extremity. He is going to continue to elevate that right lower extremity this next week. cc: Tao Stapleton MD
--- NOTE | 2018-04-19 18:20 | NEPHROLOGY PROGRESS NOTE ---
DATE: 04/19/2018 TIME SEEN: 0815 SUBJECTIVE: Mr. Toussaint is resting quietly in bed, states that Dr. Stapleton has just been in and is possibly releasing him later today to go home. OBJECTIVE: His most recent vital signs, last temperature 98.3 degrees, blood pressure 123/69, heart rate 63, respirations 16, he is on room air, last recorded saturation is 100%, he has had 1829 in, he has had 0 out with need for dialysis. LAB: Sodium 130, potassium 5.2, chloride is 88, CO2 23, BUN 63, creatinine 9, glucose 98, his anion gap is 19, calcium 8.6, phosphorus 10.4, albumin 2.8. Patient has previous hemoglobin of 9.5 on the 2nd. PHYSICAL EXAM: This is a 47-year-old Ethiopian male he is resting quietly in bed.Skin: Warm and dry. HEENT: Normocephalic, atraumatic. Conjunctiva is pale. He has MILEY. Mucous membranes are dry. Neck: Supple. Trachea midline. No evidence of JVD. Cardiovascular : Regular rate and rhythm. He is without murmur or gallop. Lungs: Clear to auscultation bilateral, equal excursion. Abdomen: Large, round, soft, nontender. Positive bowel sounds. Genitourinary: Not inspected. Minimal void with dialysis assist. Extremities: Has minimal edema. The patient has an Matthew wrap to his right foot. Neurological: Alert and oriented x3. ASSESSMENT AND PLAN: 1. Chronic kidney disease stage 5D. The patient is due for his routine dialysis treatment today. Will place him on a 2K bath, dialyze him 3-1/2 hours. We will attempt to pull to his outpatient dry weight. 2. Electrolytes, acid-base balance and anemia. These are all acceptable. 3. Blood pressure, this remains in target. 4. Repair of right foot per Dr. Stapleton. The patient is to be released later today. Like to thank you for allowing us to follow with this patient. Dictated by KATHY Quevedo for Parviz Palumbo MD Face to face encounter, data reviewed, discussed with Karin Velez on 04/19/18. I agree with the above assessment and plan of care. cc: KATHY Quevedo MD Tao Daigre, MD [facility]
--- NOTE | 2018-04-19 22:58 | PROGRESS NOTE ---
DATE: 04/19/2018 SUBJECTIVE: Patient is doing better, eating well. He is going back on insulin pump at home. Status post right ankle surgery. No complaints. He is walking with the boot. EXAMINATION: Vitals: Stable. HEENT: Exam within normal limits. Chest: Clear. Heart: Sounds are regular. Abdomen: Belly is soft, nontender. LABS: Hematocrit 30. ASSESSMENT AND PLAN: 1. Right foot surgery for Charcot joints. Stable. Follow up with outpatient. 2. Anemia, status post a unit of packed RBCs during dialysis. 3. End-stage kidney disease, as per Dr. Palumbo. 4. Diabetes. Will go back on insulin pump. 5. The patient is medically stable. He is going to home after dialysis. We will follow up as an outpatient for diabetes management. LEVEL OF DOCUMENTATION: 15 minutes. cc: MD Tao Westfall MD
--- NOTE | 2018-04-20 10:13 | DISCHARGE SUMMARY ---
ADMISSION DATE: 04/15/2018 DISCHARGE DATE: 04/19/2018 ADMITTING DIAGNOSES: 1. Right Charcot, with midfoot collapse. 2. Diabetes mellitus type 2, with peripheral neuropathy. 3. Chronic end-stage renal disease, on hemodialysis. INCOMPLETE REPORT -- DICTATION ENDS HERE. Dictated by KATHY Maloney for Tao Stapleton MD cc: KATHY Maloney MD
== END 2018-04-19 16:09 | disposition home health service (06) | DRG 981 ==
LOC: 4N 06:45 → OR 06:45 → OBSVTOIN 12:33
PROVIDERS: ADMIT Orthopaedic Surgery; ATTEND Orthopaedic Surgery
CPT/HCPCS: 36430; 76000; 80048; 80069; 82948; 83036; 85014; 85018; 85027; 86850; 86900; 86901; 86920; 93005; 93010; 94761; 94799; 97110; 97162; 97530; A9270; J0330; J0690; J1100; J1170; J1644; J1650; J2250; J2270; J2405; J3010; J7030; P9016; XXXXX

== ENCOUNTER 2018-08-08 18:38 | Inpatient (IN) ==
--- NOTE | 2018-08-08 19:58 | Diag Imaging Result Doc PS360 ---
EXAM: CHEST-2 VIEWS HISTORY: sob TECHNIQUE: Chest two views COMPARISON: 08/24/2017 FINDINGS: Poor inspiratory effort. The heart is enlarged. Mild vascular distention. No pleural effusions. No consolidation. IMPRESSION: Cardiomegaly with pulmonary edema. Electronically signed by Marciano Unger 08/08/2018 7:54 PM
[2018-08-08] MEDS ORDERED: LASIX IV ONE (20:09)
--- NOTE | 2018-08-08 20:11 | PROVIDER DOCUMENTATION ---
HPI-Cardiac General - General Chief Complaint: B/P Problems Stated Complaint: PAIN IN LEGS Time Seen by Provider: 08/08/18 18:59 Source: patient Allergies/Adverse Reactions: Patient Allergies Allergy/AdvReac Type Severity Reaction Status Date / Time hydrocodone [From [place]] AdvReac NAUSEA/VOMI Verified 04/15/18 07:22 TING Home Medications: Home Medication List Medication Instructions Recorded Confirmed Last Taken Type Divalproex [Depakote] 1,000 mg PO BID 07/10/16 04/12/18 05/09/18 History Lisinopril [Zestril] 40 mg PO DAILY 11/22/16 04/15/18 05/09/18 History Aspirin 81 mg PO QPM 04/16/17 04/12/18 05/09/18 History Hydralazine [Apresoline] 100 mg PO TID 04/16/17 04/12/18 05/09/18 History Amitriptyline [Elavil] 10 mg PO HS 04/12/18 04/15/18 05/09/18 History Carvedilol 12.5 mg PO BID 04/12/18 04/12/18 05/09/18 History Insulin Aspart [Novolog] See Protocol SQ DIRECTED 04/15/18 04/15/18 05/09/18 History Enoxaparin Sodium [Lovenox] 30 mg SQ DAILY 30 Days #30 ml 04/19/18 05/09/18 Rx Oxycodone HCl/Acetaminophen 1 each PO Q6H PRN PRN 7 Days #40 04/19/18 05/08/18 Rx [Percocet 5-325 mg Tablet] tablet Divalproex Sodium [Depakote ER] 500 mg PO Q12H #60 tab.er.24h 08/01/18 Unknown Rx - History of Present Illness-Cardiac Nature of Presenting Problem: reports that he has been feeling "whoozy" since yesterday, like he is walking in the [place]ores. admits to sob, cp, weak, and left foot pain coughing, left foot pain. Review of Systems - Adult - REVIEW OF SYSTEMS - ADULT Constitutional: reports: no symptoms reported Eyes: reports: no symptoms reported Ears, Nose, Mouth & Throat: reports: no symptoms reported Cardiovascular: reports: no symptoms reported Respiratory: reports: no symptoms reported Gastrointestinal: reports: no symptoms reported Genitourinary: reports: no symptoms reported Musculoskeletal: reports: no symptoms reported Integumentary: reports: no symptoms reported Neurological: reports: no symptoms reported Psychiatric: reports: no symptoms reported Endocrine: reports: no symptoms reported Hematologic/Lymphatic: reports: no symptoms reported Allergic/Immunologic: reports: no symptoms reported All Other Systems: Reviewed and Negative Past History - Adult - PAST MEDICAL HISTORY-ADULT Review of Records: reports: Old Records Reviewed, Nursing Assessment Review, Medications Reviewed, Social history reviewed & non-contributory. Major Childhood Illnesses: reports: denies history Cardiovascular: reports: HTN, PVD (severe) Respiratory: reports: denies history Gastrointestinal: reports: denies history Obstetrical/Gynecological: reports: denies history Genitourinary: reports: dialysis (MWF), kidney disease Musculoskeletal: reports: other (foot infection with ulcers) Neurological: reports: Seizures/Epilepsy, other (brain abscess with craniotomy) Psychiatric: reports: denies history Endocrine/Immune: reports: Diabetes, other (diabetic foot infection with ulcers) Other Conditions: reports: denies history - PRIOR SURGERIES/PROCEDURES Surgical/Procedure History: reports: indwelling device (port), orthopedic (extremity) (two toes removed from each foot; recent fusion surgery due to deformities in left charcot foot), other (brain abscess) - IMMUNIZATION STATUS Childhood Immunizations: See Nurse Assessment Flu Vaccine: See Nurse Assessment - FAMILY HISTORY Family History: reviewed, not pertinent - SOCIAL HISTORY Smoking: denies Substance Use: none/never Alcohol Use Frequency: never Living Situation: family Physical Exam-General - PHYSICAL EXAM-ADULT Initial Vital Signs Reviewed: Yes - CONSTITUTIONAL General Appearance: mild distress, moderate distress - EYES Eyes: PERRL/EOMI, pink conjunctivae - HEAD, EARS, NOSE, MOUTH & THROAT HENMT: normocephalic/atraumatic, normal ENT inspection, other (dry mucus) - NECK Neck: non-tender, full range of motion - RESPIRATORY Respiratory: chest non-tender, crackles - CARDIOVASCULAR Cardiovascular: normal peripheral pulses, tachycardia - GASTROINTESTINAL (ABDOMEN) Abdominal Exam: normal bowel sounds, non tender, soft - MUSCULOSKELETAL Back Exam: normal inspection, no CVA tenderness, no vertebral tenderness Extremity: normal range of motion (but slow. wear boots b/l.), pedal edema, swelling, tenderness. negative: erythema, inflammation, joint effusion Peripheral Pulses: dorsalis-pedis (R): 2+, dorsalis-pedis (L): 2+ - SKIN Integumentary: normal color, warm/dry - NEUROLOGIC Neurologic: grossly normal, no motor/sensory deficits - PSYCHIATRIC Psych/Mental Status: normal mood/affect, normal thought content, normal thought process, oriented x 3 Progress - PLAN OF CARE/RESULTS Progress/Plan/Lab Results: Vital Signs - 8 hr 08/08/18 18:41 08/08/18 20:14 Temperature 98 F 101 F H Pulse Rate 112 H 104 H Respiratory Rate 20 22 Blood Pressure 204/95 191/101 O2 Sat by Pulse Oximetry 95 98 Laboratory Results - last 24 hr 08/08/18 08/08/18 08/08/18 18:50 20:32 20:32 WBC RBC Hgb Hct MCV MCH MCHC RDW Std Deviation Plt Count MPV Immature Gran % (Auto) Neut % (Auto) Lymph % (Auto) [place] % (Auto) Eos % (Auto) Baso % (Auto) Immature Gran # (Auto) Neut # (Auto) Lymph # (Auto) [place] # (Auto) Eos # (Auto) Baso # (Auto) PT INR PTT (Actin FS) Sodium 130 L Potassium 4.0 Chloride 91 L Carbon Dioxide 22 L Anion Gap 17 BUN 48 H Creatinine 10.0 H* Estimated GFR/1.73 m2 7 BUN/Creatinine Ratio 5 Glucose 224 H POC Glucose 180 H D Calculated Osmolality 280 Calcium 8.5 L Total Bilirubin 1.19 H AST 11 ALT 8 L Alkaline Phosphatase 274 H Creatine Kinase 75 Troponin T Crk-G-Ebgkizacmbx Pept > 08288 H Total Protein 6.8 Albumin 2.9 L Globulin 3.9 Albumin/Globulin Ratio 0.7 Plasma Lactate 08/08/18 08/08/18 08/08/18 20:32 20:32 20:32 WBC 12.06 H RBC 2.62 L Hgb 8.1 L Hct 24.2 L MCV 92.4 MCH 30.9 MCHC 33.5 RDW Std Deviation 13.6 Plt Count 300 MPV 9.4 Immature Gran % (Auto) 0.2 Neut % (Auto) 71.6 Lymph % (Auto) 13.0 L [place] % (Auto) 13.0 H Eos % (Auto) 1.8 Baso % (Auto) 0.4 Immature Gran # (Auto) 0.03 Neut # (Auto) 8.62 H Lymph # (Auto) 1.57 [place] # (Auto) 1.57 H Eos # (Auto) 0.22 Baso # (Auto) 0.05 PT INR PTT (Actin FS) Sodium Potassium Chloride Carbon Dioxide Anion Gap BUN Creatinine Estimated GFR/1.73 m2 BUN/Creatinine Ratio Glucose POC Glucose Calculated Osmolality Calcium Total Bilirubin AST ALT Alkaline Phosphatase Creatine Kinase Troponin T 0.200 H Dob-V-Potmjcxnryp Pept Total Protein Albumin Globulin Albumin/Globulin Ratio Plasma Lactate 0.9 08/08/18 21:20 WBC RBC Hgb Hct MCV MCH MCHC RDW Std Deviation Plt Count MPV Immature Gran % (Auto) Neut % (Auto) Lymph % (Auto) [place] % (Auto) Eos % (Auto) Baso % (Auto) Immature Gran # (Auto) Neut # (Auto) Lymph # (Auto) [place] # (Auto) Eos # (Auto) Baso # (Auto) PT 21.2 H INR 1.69 PTT (Actin FS) 48.1 H Sodium Potassium Chloride Carbon Dioxide Anion Gap BUN Creatinine Estimated GFR/1.73 m2 BUN/Creatinine Ratio Glucose POC Glucose Calculated Osmolality Calcium Total Bilirubin AST ALT Alkaline Phosphatase Creatine Kinase Troponin T Fnb-N-Hpsojexvkta Pept Total Protein Albumin Globulin Albumin/Globulin Ratio Plasma Lactate Orders Category Date Time Status Cardiac Monitoring DIRECTED Care 08/08/18 19:21 Active Misc. NRSG Communication Order DIRECTED Care 08/08/18 20:49 Active Notify MD of + Sepsis Screen NOW Care 08/08/18 20:24 Active Notify Physician As Ordered Care 08/08/18 20:24 Active Oxygen Therapy- ED Nursing DIRECTED Care 08/08/18 19:21 Active Saline Loc NOW Care 08/08/18 19:21 Active CHEST-2 VIEWS [RAD] Stat Exams 08/08/18 19:21 Completed BLOOD CULTURE [BLDCUL] Stat Lab 08/08/18 21:20 Results CBC WITH DIFF [HEME] Stat Lab 08/08/18 20:32 Completed CK PROFILE [SP CHEM] Stat Lab 08/08/18 20:32 Completed COMPREHENSIVE METABOLIC PANEL [CHEM] Stat Lab 08/08/18 20:32 Completed LACTATE, PLASMA [CHEM] Lab 08/08/18 23:30 Uncollected LACTATE, PLASMA [CHEM] Lab 08/09/18 02:30 Uncollected LACTATE, PLASMA [CHEM] Q3H Lab 08/08/18 20:32 Completed PRO B-NATRIURETIC PEPTIDE Stat Lab 08/08/18 20:32 Completed PROTIME WITH INR [COAG] Stat Lab 08/08/18 21:20 Completed PTT [COAG] Stat Lab 08/08/18 21:20 Completed TROPONIN T Stat Lab 08/08/18 20:32 Completed URINALYSIS W/POSS RFLX CULT [URINALYSIS] Stat Lab 08/08/18 20:24 Uncollected URINE DRUG SCREEN Stat Lab 08/08/18 20:27 Uncollected Furosemide [Lasix] Med 08/08/18 20:09 Discontinued 60 mg IV NOW ONE CP/SOB/Palp >45 yrs of Age Stat Oth 08/08/18 19:21 Ordered Oxygen Device Stat Oth 08/08/18 20:24 Active EKG [EKG] Stat Ther 08/08/18 19:21 Ordered Result Diagrams: 08/08/18 20:32 08/08/18 20:32 Departure - Departure Date of Disposition Decision: 08/08/18 Time of Disposition Decision: 21:29 DIAGNOSIS: Elevated blood pressure, ESRD (end stage renal disease) on dialysis, Insulin dependent diabetes mellitus, Hypertensive emergency, Pulmonary edema Disposition: ADMITTED INPATIENT 09 Certified Medical Emergency: Emergent Condition: Stable Referrals and Follow-Ups: Robert Ness MD [Primary Care Provider] - - Critical Care Note This patient required my direct & personal management of CC.: No Attestation - Physician/ RAVI Attestation The physician spent face to face time with patient:: Yes Advanced Practice Provider documentation review:: Supervising physician onsite and consulted in the evaluation and care of this patient. The physician did have a face to face encounter with the patient.
[2018-08-08 21:09] LABS: BASO# 0.05 X1000 (0.0-0.2); BASO% 0.4 % (0.0-0.8); EOS# 0.22 X1000 (0.0-0.7); EOS% 1.8 % (0.0-10.0); HEMATOCRIT 24.2 % (42.0-52.0); HEMOGLOBIN 8.1 g/dL (14.0-18.0); IMM GRAN# 0.03 X1000 (0.0-0.04); IMM GRAN% 0.2 % (0.0-0.5); LYMPH# 1.57 X1000 (1.2-3.4); MCH 30.9 PG (27-31); MCHC 33.5 g/dL (33-37); MCV 92.4 FL (81-99); MONO# 1.57 X1000 (0.11-0.59); MPV 9.4 FL (7.4-10.4); NEUT# 8.62 X1000 (1.4-6.5); NEUT% 71.6 % (42.2-75.2); PLT 300 X1000 (130-400); RBC 2.62 XMIL (4.7-6.1); RDW 13.6 % (11.5-14.5); WBC 12.06 X1000 (4.8-10.8)
[2018-08-08 21:36] LABS: ALB/GLOB RATIO 0.7; ALBUMIN 2.9 g/dL (3.5-5.0); CALCIUM 8.5 mg/dL (8.8-10.2); TOTAL BILIRUBIN 1.19 mg/dL (0.20-1.00); TOTAL PROTEIN 6.8 g/dL (6.3-8.3)
[2018-08-08 22:09] LABS: INR 1.69; PROTIME 21.2 Seconds (11.0-16.0)
[2018-08-08 22:10] LABS: PTT 48.1 Seconds (22.3-41.8)
--- NOTE | 2018-08-08 23:10 | HISTORY AND PHYSICAL ---
PRIMARY CARE PHYSICIAN: Dr. Ness. CHIEF COMPLAINT: Left foot pain. HISTORY OF PRESENT ILLNESS: The patient is a 47-year-old male with a history of multiple medical problems including diabetes mellitus type 2, Charcot's foot, hypertension, seizures, pulmonary embolism, brain abscess, end-stage renal disease, who had presented to the emergency department with several days history of worsening left foot pain, he described it as sharp pain. The patient states that he was seeing a pain specialist in the past. He states that he was not feeling well. He was also having some of other complaints of abdominal pain and cough symptoms. He was evaluated in the emergency department due to his presenting symptoms and it was thought that we will place him for observation for further evaluation and management. At the time of my examination the patient denied any headache, fever, chills, chest pain, hemoptysis or melena, but complained of left foot pain and not feeling well. PAST MEDICAL HISTORY: Includes diabetes mellitus type 2, osteomyelitis of the left foot, Charcot's foot, hypertension, hyperlipidemia, seizure disorder, end-stage renal disease on renal dialysis Thursday, Thursday and Thursday, DVT, brain abscess. PAST SURGICAL HISTORY: Bilateral feet surgery, left upper extremity AV graft, brain I and D of an abscess. ALLERGIES: No known drug allergies. CURRENT MEDICATIONS: Include Elavil 10 mg p.o. at bedtime, aspirin 81 mg p.o. daily, carvedilol 12.5 mg p.o. b.i.d., Depakote 1000 mg p.o. b.i.d., Depakote ER 500 mg p.o. q.12, Lovenox 30 units subcutaneous daily, hydralazine 100 mg p.o. t.i.d., NovoLog as directed, Zestril 40 mg p.o. daily, Percocet 5/325 1 p.o. q.6 hours. SOCIAL HISTORY: No history of smoking, alcohol or illicit drug use. FAMILY HISTORY: Positive for coronary disease in mother. REVIEW OF SYSTEMS: Fourteen point review of systems is as in the HPI. Other systems negative. PHYSICAL EXAMINATION: GENERAL: Cooperative friendly male. He is resting more comfortably now. VITAL SIGNS: Temperature 98 degrees, pulse 112, respirations 20, blood pressure 204/95. HEENT: Atraumatic, normocephalic. Extraocular movements intact. PERRLA. NECK: No masses. CHEST: Bibasilar rales. CARDIOVASCULAR: Regular rate and rhythm. ABDOMEN: Soft. Positive bowel sounds. EXTREMITIES: Left foot moderate edema and tenderness. Right foot is in a boot. GENITOURINARY: No bladder distention. NEUROLOGIC: Nonfocal. SKIN: Warm. LABORATORIES AND STUDIES: WBC 12.06, hemoglobin 8.1, hematocrit 24.2, platelets 300,000. Sodium 130, potassium 4.0, chloride 91, CO2 is 22, BUN 48, creatinine is 10.0, glucose is 224, proBNP is 35,000, troponin is 0.200. ASSESSMENT: The patient is a 47-year-old male with a history of multiple medical problems including diabetes mellitus type 2 with neuropathy, Charcot's foot, hypertension, hyperlipidemia, seizure disorder, and end-stage renal disease who had presented to the emergency department with several days history of having worsening left foot pain. He states that he was going to pain management in the past; however, did not elaborate any further. He states that he is not feeling well. He was evaluated in the emergency department due to his presenting symptoms. It was thought that we will place him for observation for further evaluation and management. ASSESSMENT: 1. Left foot pain with edema and possibly chronic osteomyelitis. 2. End-stage renal disease. 3. Diabetes mellitus type 2. 4. Hypertension. 5. History of deep venous thrombosis. PLAN: 1. We will admit the patient to the medical floor with telemetry. 2. We will give the patient adequate pain control. 3. We will consult Nephrology for dialysis. 4. We will put the patient on glycemic protocol with sliding scale insulin regimen. 5. Monitor blood pressure closely. Resume antihypertensive agent. 6. Continue with Lovenox for deep venous thrombosis. 7. We will continue to follow, reassess and make further recommendation based on the patient's clinical course. cc: Chava Vidal MD
[2018-08-09] MEDS: PERCOCET-5 PO PRN ×2 (02:30→09:29)
[2018-08-09 06:30] LABS: CALCIUM 8.9 mg/dL (8.8-10.2); CREATININE 10.3 mg/dL (0.7-1.2); POTASSIUM 4.1 mmol/L (3.5-5.1)
[2018-08-09 06:59] LABS: BASO# 0.04 X1000 (0.0-0.2); BASO% 0.3 % (0.0-0.8); EOS# 0.26 X1000 (0.0-0.7); EOS% 2.2 % (0.0-10.0); HEMATOCRIT 23.6 % (42.0-52.0); HEMOGLOBIN 7.8 g/dL (14.0-18.0); IMM GRAN# 0.04 X1000 (0.0-0.04); IMM GRAN% 0.3 % (0.0-0.5); MCH 30.8 PG (27-31); MCHC 33.1 g/dL (33-37); MCV 93.3 FL (81-99); MONO# 1.43 X1000 (0.11-0.59); MONO% 12.1 % (1.7-9.3); MPV 9.3 FL (7.4-10.4); NEUT% 68.1 % (42.2-75.2); PLT 313 X1000 (130-400); RBC 2.53 XMIL (4.7-6.1); RDW 13.7 % (11.5-14.5); WBC 11.77 X1000 (4.8-10.8)
--- NOTE | 2018-08-09 07:14 | EKG Report ---
Test Performed on : 08/08/2018 8:23:47 PM Test Reason : pna Blood Pressure : / mmHG Vent. Rate : 102 BPM Atrial Rate : 102 BPM P-R Int : 164 ms QRS Dur : 098 ms QT Int : 334 ms P-R-T Axes : 037 013 097 degrees QTc Int : 435 ms Sinus tachycardia. Abnormal QRS-T angle, consider primary T wave abnormality Abnormal ECG When compared with ECG of 12-APR-2018 08:54, Nonspecific T wave abnormality no longer evident in Inferior leads Unconfirmed Result
[2018-08-09] MEDS ORDERED: HEPARIN IV PRN (07:34)
[2018-08-09] MEDS ORDERED: TIGHT: 0.2 ML/HR FOR DIALYSIS MISC PRN (07:34)
[2018-08-09] MEDS ORDERED: NS 2,000 ML MISC PRN (07:34)
--- NOTE | 2018-08-09 12:23 | PROGRESS NOTE ---
DATE: 08/09/2018 Mr. Toussaint was admitted last night with marked leg edema. He had minimal shortness of breath. His troponin is positive and his proBNP was about 35,000. Vital signs are stable. Lungs reveal minimal congestion. He has acute on chronic renal disease. BUN was 54, creatinine 10.3. He gets dialysis 3 times a week. Hemoglobin was 7.8, hematocrit 23.6. Sodium was 129. We have a nephrology consult on him. It could be a false elevation of the troponin. However, the BNP is very high and we will get a cardiology consult on him just to make sure that he is not in congestive heart failure. On the chest x-ray we did yesterday, it revealed cardiomegaly with pulmonary edema. He got one dose of Lasix 40 mg. We will re-evaluate the medication. -2 cc: MD Atremio Guillaume MD
[2018-08-09] MEDS: APRESOLINE PO SCH ×2 (13:34→18:07)
[2018-08-09] MEDS ORDERED: VANCOMYCIN IV PER PHARMACY MISC SCH (14:00)
--- NOTE | 2018-08-09 14:18 | NEPHROLOGY CONSULTATION ---
DATE: 08/09/2018 REASON FOR ADMISSION: Left foot pain. Question of possible osteomyelitis. REASON FOR CONSULTATION: End-stage renal disease, assist with management. CONSULTING PHYSICIAN: Dr. Ness. HISTORY OF PRESENT ILLNESS: This is a 47-year-old gentleman known to our service from previous hospitalizations requiring dialysis. The patient has a history of Charcot's foot. She has had multiple amputations and presented to the emergency room with worsening pain to his left foot and swelling. In the ER, it was felt the patient needed further workup and treatment of the foot and has been admitted for that. We have been asked to see him to assist with management for his dialysis needs. PAST MEDICAL HISTORY: Diabetes, osteomyelitis, left Charcot foot, hypertension, hyperlipidemia seizure disorder, CKD, dialysis Thursday, Thursday, Thursday, DVT and brain abscess. SURGICAL HISTORY: He has had foot surgery bilaterally. He has a left upper extremity AV graft. He has had an I D of an abscess to the brain. He has had some toe amputations. ALLERGIES: None. HOME MEDICATIONS: Elavil, aspirin, carvedilol, Depakote, Lovenox, hydralazine, Zestril, Percocet. FAMILY HISTORY: Coronary artery disease. SOCIAL HISTORY: No ETOH, tobacco or illicit drug use. REVIEW OF SYSTEMS: Essentially negative other than pain and swelling to the left foot. PHYSICAL EXAMINATION: Vital Signs: Temperature 98, pulse 76, respiratory rate 18, blood pressure 140/81. Intake 220 mL. Output not measured. General: This is a middle-aged gentleman who is pleasant sitting up in bed. He is awake and alert. There is no acute distress. HEENT: Normocephalic, atraumatic. Conjunctivae pale. Oral mucosa moist. Neck: Supple, without JVD. Cardiovascular: Regular rate and rhythm. Pulmonary: He is clear bilaterally. Abdomen: Soft, positive bowel sounds. : Not inspected. Minimal void. Extremities: He has significant swelling to the left lower extremity, some of which does appear chronic in nature. Right lower extremity with some swelling. He has tenderness to the left foot. Right foot remains in a boot. He has multiple toes from amputations missing. Neurologic: Grossly nonfocal. Integumentary: Skin is warm and dry, otherwise. LAB DATA: WBC of 11.7, hemoglobin 7.8. Sodium 129, potassium 4.1, CO2 18, creatinine 10.3. ASSESSMENT AND PLAN: 1. Chronic kidney disease 5D. Today is his routine dialysis day. He will dialyze on a 2 K bath/UF to his dry weight, 4 hour treatment. 2. Electrolytes, acid-base balance anemia. He has some modest anemia, continue to monitor. Transfuse as warranted. We will add his Procrit on dialysis days. 3. Question of osteomyelitis. He is being evaluated by primary, being treated with Rocephin. We will make no changes. Dictated by KATHY De Los Santos for Parviz Palumbo MD Face to face encounter, data reviewed, discussed with Tabitha Mckeon on 08/09/18. I agree with the above assessment and plan of care. cc: MD Artemio Esparza MD [facility] HOSPITALRoberta
[2018-08-09] MEDS ORDERED: VANCOMYCIN 1 GM/NS 1 GM/250 ML IVPB IV SCH (14:30)
[2018-08-09] MEDS ORDERED: VANCOMYCIN 1 GM/NS 1 GM/250 ML IVPB IV ONE (15:00)
[2018-08-09] MEDS ORDERED: NS 50 ML ONE (15:22)
[2018-08-09] MEDS: ROCEPHIN 1 GM in NS 50 ML IV SCH (18:06)
[2018-08-09] MEDS: EPOGEN SUBQ SCH (18:07)
[2018-08-09] MEDS: ELAVIL PO SCH (20:31)
[2018-08-09] MEDS: ASPIRIN PO SCH (20:31)
[2018-08-09] MEDS: COREG PO SCH (20:31)
[2018-08-10] MEDS: PERCOCET-5 PO PRN ×2 (03:44→15:47)
[2018-08-10] MEDS ORDERED: NS 2,000 ML MISC PRN (07:36)
[2018-08-10] MEDS ORDERED: TIGHT: 0.2 ML/HR FOR DIALYSIS MISC PRN (07:36)
[2018-08-10] MEDS ORDERED: HEPARIN IV PRN (07:36)
--- NOTE | 2018-08-10 08:19 | Diag Imaging Result Doc PS360 ---
EXAM: FOOT COMPLETE LEFT 08/10/2018 HISTORY: swollen TECHNIQUE: Three views COMMENT: Compared to the previous study of 02/11/2018, there has been some increase in soft tissue swelling but otherwise are has been no appreciable change. There is some resorption of bone around some of the hardware particularly the distal portion of the pins in the first through third metatarsals and the screws in the calcaneus. This was also the case previously. There is extensive heterotopic bone formation posterior to the tibia and fibula. There is extensive arteriosclerosis. There is degenerative change in the fifth metatarsophalangeal joint with some irregularity of the articular surfaces, again this was present at the time the previous study. There is marked irregularity of the tibiotalar joint, through which a intramedullary erika passes. IMPRESSION: Extensive chronic degenerative and posttraumatic change with postsurgical changes, all essentially stable since 02/11/2018. Electronically signed by Tom Waddell 08/10/2018 8:16 AM
--- NOTE | 2018-08-10 08:25 | Diag Imaging Result Doc PS360 ---
EXAM: LOWER LEG-LEFT 08/10/2018 HISTORY: swelling TECHNIQUE: Left lower leg four views COMMENT: There is a thick periosteal reaction over the distal tibia. There is an intramedullary erika transfixing the tibiotalar joint. There is ankylosis of the distal tibia and fibula and the distal fibula has apparently been resected. There is extensive arteriosclerosis. Some resorption around the intramedullary erika is present. In part this was present at the time of the previous foot radiographs of 02/11/2018. IMPRESSION: Chronic postsurgical and degenerative change. Electronically signed by Tom Waddell 08/10/2018 8:22 AM
[2018-08-10] MEDS: TUMS PO SCH ×2 (08:45→21:12)
[2018-08-10] MEDS: HUMULIN R SUBQ SCH ×4 (08:46→21:12)
[2018-08-10] MEDS: APRESOLINE PO SCH ×3 (10:54→18:49)
--- NOTE | 2018-08-10 11:37 | CARDIOLOGY CONSULTATION ---
DATE: 08/10/2018 REASON FOR CONSULTATION: Cardiology was consulted for shortness of breath. HISTORY OF PRESENT ILLNESS: Mr. Murali Toussaint is a 47-year-old, gentleman with history of Charcot's foot, diabetes, hypertension, end-stage renal disease, history of brain abscess in the past. He comes in with complaints of not feeling well. Denies any chest pain. Has some shortness of breath. He also has noticed pain in his left foot. There are no palpitations, there is no syncope. Exercise capacity is limited. REVIEW OF SYSTEMS: General: A 14-point review of system was done. GI system: There is no history of nausea, vomiting, diarrhea. There is no history of hematemesis or melena. Central nervous system: No focal weakness to suggest a CVA, TIA. system: There is no dysuria or hematuria. PAST MEDICAL HISTORY: 1. Diabetes. 2. Osteomyelitis of the left foot. 3. Charcot's foot. 4. Hypertension. 5. Hyperlipidemia. 6. Seizure disorder. 7. End-stage renal disease on dialysis. 8. History of deep vein thrombosis in the past. 9. Brain abscess. 10. Bilateral foot surgery. 11. Left upper extremity fistula. ALLERGIES: He is not known to be allergic to any medications. SOCIAL HISTORY: He does not smoke. Does not drink. HOME MEDICATIONS: Elavil 100, aspirin 81, Coreg 12.5 b.i.d., Depakote 1000 b.i.d. and 1500 b.i.d., Lovenox daily, hydralazine 100 t.i.d., NovoLog as directed, Zestril, Percocet. PHYSICAL EXAMINATION: Vital Signs: On examination, blood pressure was 146/82. Cardiovascular System: First and second heart sounds were heard. There was no S3 gallop. Respiratory System: Normal air entry. There are no crepitations or rhonchi. Abdomen: Soft, nontender. Central nervous system: Alert and oriented. He was moving all 4 extremities. Examination of extremities revealed chronic edema, which he has been having. In addition, there were multiple surgeries done of both feet with amputation on the left foot. LABORATORY EXAMINATION: Sodium 129, potassium 4.1, BUN 54, creatinine 10.3. Cardiac enzymes were borderline abnormal at 0.2 and 0.18, decreasing to 0.156. RADIOGRAPHIC EXAMINATION: Chest x-ray: Cardiomegaly with pulmonary edema. ASSESSMENT AND PLAN: Mr. Murali Toussaint is a 47-year-old Afro-[place] gentleman with history of hypertension, diabetes, end-stage renal disease, Charcot's foot. He comes in with complaints of foot pain with shortness of breath, and chest x-ray revealed cardiomegaly and pulmonary edema. 1. He denies any chest pain. Electrocardiogram revealed normal sinus rhythm. There was no ST-T changes to suggest ischemia infarction. Abnormal troponin secondary to chronic renal failure. We will set him up to undergo an echocardiogram to assess cardiac and valvular function. We will also get a Cardiolite stress test to assess for and rule out ischemia. 2. He has heart failure. He has pulmonary edema. He is undergoing dialysis at the present time. 3. Hypertension. Continue with his home medication. 4. Diabetes. Continue with his medication. 5. He has also had seizure disorder. Continue with Depakote. Thank you for the consult. We will follow hospital course. cc: MD Artemio Perez MD
--- NOTE | 2018-08-10 14:22 | NEPHROLOGY PROGRESS NOTE ---
DATE: 08/10/2018 DATE SEEN: 08/10/2018. TIME SEEN: 0650. SUBJECTIVE: Mr. Toussaint is resting quietly in bed. Continues to have pain to his left lower extremity. He continues to have swelling to the left foot. OBJECTIVE: VITAL SIGNS: His most recent vital signs, temperature 97.4 degrees, blood pressure 146/82, heart rate 75, respirations 16. He is on room air. Last recorded saturation is 98%. He has had 342 in, 3901 out with 3.7 L on dialysis. LABORATORY DATA: Last hemoglobin drawn is 7.8. The patient's last potassium of 4.1. We will order labs for the a.m. for dialysis. PHYSICAL EXAMINATION: General: This is a 47-year-old male. He is resting quietly in bed. He appears chronically ill though no severe acute distress. Skin: Warm and dry. HEENT: Normocephalic, atraumatic. Conjunctiva is pale. He has MILEY. Mucous membranes are dry. Neck: Supple. Trachea midline. No evidence of JVD. Cardiovascular: Regular rate and rhythm. He has an S4. No murmur appreciated. Lungs: Clear to auscultation bilaterally. Equal excursion on room air. Abdomen: Soft, nontender. Positive bowel sounds. Genitourinary: Not inspected. Minimal void with dialysis assist. Extremities: Has a left upper arm fistula with good palpable thrill. He continues with decreased pulses with swelling to the left foot. This remains warm to touch. Neurological: Alert and oriented x3. ASSESSMENT AND PLAN: 1. Chronic kidney disease stage 5D. The patient is due for his routine dialysis treatment in the a.m. No indications for intervention today. 2. Electrolytes and acid-base balance. These are acceptable. 3. Anemia. This is acceptable though low. We will transfuse as warranted during his hospital stay. 4. Questionable osteomyelitis versus injury. The patient is being treated with IV Rocephin. We will check x-ray of his left foot and left lower extremity and a venous Doppler study. I would like to thank you for allowing us to follow with this patient. Dictated by KATHY Quevedo for Parviz Palumbo MD Face to face encounter, data reviewed, discussed with Karin Velez on 08/10/18. I agree with the above assessment and plan of care. cc: KATHY Quevedo MD Jagan Reddy, MD MTDD
[2018-08-10] MEDS: PRINIVIL PO SCH (14:37)
[2018-08-10] MEDS: COREG PO SCH ×2 (14:38→21:12)
[2018-08-10] MEDS: LASIX IV SCH (14:38)
[2018-08-10] MEDS ORDERED: VANCOMYCIN 1 GM/NS 1 GM/250 ML IVPB IV ONE (17:00)
[2018-08-10] MEDS: ROCEPHIN 1 GM in NS 50 ML IV SCH (17:55)
[2018-08-10] MEDS: ASPIRIN PO SCH (21:12)
[2018-08-10] MEDS: ELAVIL PO SCH (21:12)
--- NOTE | 2018-08-10 21:21 | PROGRESS NOTE ---
DATE: 08/10/2018 HISTORY OF PRESENT ILLNESS: A 47-year-old, male, complicated historian, admitted on 08/08 with left leg cellulitis. He has 2/2 blood cultures gram-positive bacteremia noted. The patient has known history of end-stage kidney disease on hemodialysis. The patient was seen by Dr. Palumbo and Dr. Christiansen. He also scheduled for stress test. He had a positive troponin. He is not complaining of any chest pain. EKG was nothing acute for ischemia. Interval history was reviewed. He had multiple surgeries by Dr. Stapleton on the left leg and the left foot. The left leg is obviously swollen and red. REVIEW OF SYSTEMS: No chest pain. No shortness of breath. PAST MEDICAL HISTORY: Reviewed. PAST SURGICAL HISTORY: Reviewed. MEDICATIONS: Reviewed. ALLERGIES: Not known. PHYSICAL EXAMINATION: VITAL SIGNS: Temperature is 97, pulse is 80, blood pressure 143/73. General: Patient is not in respiratory distress. HEENT: Within normal limits. Neck: Supple. No lymphadenopathy. Chest: Bilateral air entry. Heart: Sounds are regular. Abdomen: Belly is soft, nontender. Good bowel sounds. Extremities: He has multiple surgeries on both feet. Left leg is swollen with redness and cellulitis changes noted. Decreased sensory exam. Multiple amputation of the right toes noted. INVESTIGATIONS: CBC: White cell count 11, hematocrit 23, platelets 313. Sodium 129, potassium 4, BUN 54, creatinine 10.3, glucose 311. Troponin was positive. ProBNP 35,000. Blood cultures 2/2 are positive. X-ray of lower extremity chronic postsurgical DJD changes noted. Intramedullary erika fixing the tibiotalar joint. Ankylosis of distal tibia and fibula. X-ray of the left foot. Extensive DJD posttraumatic changes. Chest x-ray cardiomegaly with mild pulmonary edema. ASSESSMENT AND PLAN: 1. Left leg cellulitis, pain, and positive bacteremia receiving IV vancomycin post-dialysis. 2. End-stage kidney disease on hemodialysis as per Dr. Palumbo through the left AV graft. 3. Gram-positive bacteremia. Dr. Tod Landry consult. 4. Anemia. We will give the transfusion during dialysis as needed. 5. Positive cardiac enzymes, cardiomegaly, elevated proBNP. Dr. Christiansen was doing a stress test. Last echocardiography reported EF is 61% back in 2017. 6. Type 2 diabetes with neuropathy. He was on insulin pump. Currently on sliding scale with insulin coverage and hypertension in my office. 7. He is on amlodipine 10 mg daily, lisinopril 40 mg daily, hydralazine 100 b.i.d., Coreg 12.5 p.o. b.i.d. 8. History of epilepsy with seizures, on Depakote 500, two b.i.d. 9. Previous stress test was done in June 2016, was negative. 10. History of diastolic congestive heart failure, stable. 11. Chronic anemia. The patient is on Epogen. We will repeat the labs in the morning and will follow up. LEVEL OF DOCUMENTATION: 35 minutes. cc: Artemio Ness MD
--- NOTE | 2018-08-10 23:43 | ECHO REPORT ---
ORDER DATE: 08/10/2018 MEASUREMENTS: Septal thickness 1.7, posterior wall thickness 1.6, left atrium 4.1, aortic root 3.9. SUMMARY: 1. Adequate quality study. 2. Very mild aortic valve sclerosis is demonstrated with normal aortic valve opening evident. Peak gradient across aortic valve is 12 mmHg. Mitral, tricuspid and pulmonic valves are without evidence of structural abnormality with trace mitral regurgitation, moderate tricuspid regurgitation, and mild pulmonic insufficiency. The estimated systolic PA pressure by Doppler is 60 mmHg suggesting moderate pulmonary hypertension. The aortic root is mildly enlarged. 3. Normal left ventricular chamber size with moderate concentric left hypertrophy is demonstrated. Estimated left ejection fraction is approximately 50%. No focal wall motion abnormality can be appreciated. Left atrium is mildly enlarged. Right ventricle and right atrium are mildly enlarged. Right ventricular systolic function is grossly preserved. 4. No pericardial effusion. 5. Appearance of the inferior vena cava suggests normal central venous pressure. CONCLUSIONS: 1. Very mild aortic valve sclerosis without stenosis. 2. Moderate tricuspid regurgitation with moderate pulmonary hypertension by Doppler. 3. Moderate concentric left hypertrophy with estimated left ventricular ejection fraction approximately 50%. 4. Mild left atrial enlargement. 5. Mild right atrial enlargement and mild right ventricular enlargement. cc: MD Dede Browne PA Jagan Reddy, MD
[2018-08-11] MEDS ORDERED: NS 2,000 ML MISC PRN (06:10)
[2018-08-11] MEDS ORDERED: HEPARIN IV PRN (06:10)
[2018-08-11] MEDS ORDERED: TIGHT: 0.2 ML/HR FOR DIALYSIS MISC PRN (06:10)
[2018-08-11] MEDS: HUMULIN R SUBQ SCH ×4 (06:11→20:16)
--- NOTE | 2018-08-11 08:47 | NEPHROLOGY PROGRESS NOTE ---
DATE: 08/11/2018 SUBJECTIVE: He is still complaining of pain in his leg. No shortness of breath. Eating. OBJECTIVE: Vital Signs: Blood pressure 156/81, heart rate 75, respiration 18, afebrile. General: No acute distress. Skin: Warm and dry. Eyes: Conjunctivae are pink. Neck: Neck veins are not appreciated. Heart: Regular with a gallop. Lungs: Equal. No crackles. Abdomen: Soft, nontender. Bowel sounds present. Extremities: 2+ edema. No clubbing or cyanosis. IMPRESSION: 1. Chronic kidney disease 5 D with volume overload. He will have dialysis again today with a goal of 3 to 4 liter ultrafiltration, and we will reassess his volume status thereafter. Moderate hyponatremia, as well as metabolic acidosis, will be addressed with his treatment today. 2. Anemia. Hemoglobin 7.8. Does not meet criteria for transfusion, but may require one within the next several days. 3. Positive blood cultures. I asked Dr. Landry to review his case with us. 4. Hypertension in target. 5. Pain control: We will address. cc: MD Artemio Esparza MD
[2018-08-11] MEDS ORDERED: LEXISCAN ONE (09:06)
[2018-08-11] MEDS: TUMS PO SCH ×2 (11:32→20:16)
[2018-08-11] MEDS: PERCOCET-10 PO PRN ×2 (11:32→20:16)
[2018-08-11] MEDS: LASIX IV SCH (11:33)
[2018-08-11] MEDS: APRESOLINE PO SCH ×3 (13:01→17:38)
--- NOTE | 2018-08-11 13:42 | Diag Imaging Result Document ---
PROCEDURE NAME: MYOCARDIAL PERF SCAN, STR/REST - 08/11/2018 PROCEDURE PERFORMED: Lexiscan Cardiolite stress test. DESCRIPTION OF PROCEDURE: Lexiscan was infused per standard protocol. There was no chest pain. Stress electrocardiogram was negative for ischemia. Following Lexiscan infusion, Cardiolite was injected. Gated SPECT images were obtained in standard views. There were 16 millicuries of Cardiolite injected for the rest phase and 46.6 millicuries of Cardiolite injected for the stress phase. Images revealed significant chest wall attenuation, left ventricle is dilated, there is no evidence of ischemia, there is a moderate grade, fixed defect in the inferior wall and in the inferolateral wall, suggestive of attenuation defect or scar. Left ventricular ejection fraction by gated SPECT was 47%. There is mild global hypokinesis. CONCLUSIONS: 1. No chest pain. 2. Negative Lexiscan stress electrocardiogram. 3. Left ventricle was dilated. 4. There is no evidence of ischemia. 5. There is a fixed defect, moderate size, in the inferior wall and the inferolateral wall, suggestive of scar or diaphragmatic attenuation. 6. Left ventricular ejection fraction by gated SPECT was 47%. There was mild global hypokinesis. cc: MD Dede Perez PA
[2018-08-11] MEDS ORDERED: CUBICIN 700 MG in NS 100 ML IV SCH (13:45)
[2018-08-11 16:18] LABS: HEMATOCRIT 24.4 % (42.0-52.0); HEMOGLOBIN 7.8 g/dL (14.0-18.0); MCH 30.6 PG (27-31); MCV 95.7 FL (81-99); RBC 2.55 XMIL (4.7-6.1); WBC 10.32 X1000 (4.8-10.8)
[2018-08-11 16:19] LABS: BASO# 0.05 X1000 (0.0-0.2); BASO% 0.5 % (0.0-0.8); EOS# 0.26 X1000 (0.0-0.7); EOS% 2.5 % (0.0-10.0); IMM GRAN# 0.03 X1000 (0.0-0.04); IMM GRAN% 0.3 % (0.0-0.5); LYMPH# 1.83 X1000 (1.2-3.4); LYMPH% 17.7 % (20.5-51.1); MONO# 1.06 X1000 (0.11-0.59); MONO% 10.3 % (1.7-9.3); MPV 9.1 FL (7.4-10.4); NEUT# 7.09 X1000 (1.4-6.5); NEUT% 68.7 % (42.2-75.2); PLT 391 X1000 (130-400); RDW 13.8 % (11.5-14.5)
[2018-08-11 16:32] LABS: ALBUMIN 2.7 g/dL (3.5-5.0); CALCIUM 8.7 mg/dL (8.8-10.2); PHOSPHORUS 3.4 mg/dL (2.7-4.5); POTASSIUM 4.2 mmol/L (3.5-5.1)
[2018-08-11 16:33] LABS: CREATININE 5.9 mg/dL (0.7-1.2)
--- NOTE | 2018-08-11 16:49 | Extremity Venous Study ---
PROCEDURE NAME: Venous U/S Left Leg - 08/10/2018 REQUESTING PHYSICIAN: KATHY Quevedo TESTER ROCKET ENGINE: Valdemar. INDICATIONS: Swelling. EQUIPMENT: [employer] E9 ultrasound system a 9 L-D transducer. COMPARISON: From 04/16/2017. FINDINGS: Images of the left lower extremity venous system with comparison shot to the right common femoral vein were obtained in both sagittal and transverse planes. Doppler was used to evaluate veins for spontaneity, phasicity, respiratory excursion, and digital augmentation. RESULTS: Normal venous compression. Normal venous flow. No obvious superficial or deep venous thrombosis noted. There is some enlarged inguinal nodes that I would recommend handling clinically. INTERPRETATION: No obvious superficial or deep venous thrombosis noted in left lower extremity. There are some enlarged inguinal nodes, which I would recommend handling clinically. cc: MD Jo Wen CRNP Jagan Reddy, MD
[2018-08-11] MEDS ORDERED: VANCOMYCIN 1 GM/NS 1 GM/250 ML IVPB IV ONE (17:00)
[2018-08-11] MEDS ORDERED: CUBICIN 700 MG in NS 100 ML IV ONE (17:00)
[2018-08-11 17:04] LABS: C REACTIVE PROT QUANT 122.85 mg/L (0.00-5.00)
[2018-08-11 17:12] LABS: SED RATE 128 mm/hr (0-15)
--- NOTE | 2018-08-11 17:35 | INFECTIOUS DISEASE CONSULT REP ---
DATE: 08/11/2018 CONCLUSION: The patient has a Staph bacteremia. It is a Staph epidermidis and it is in both blood cultures, therefore, I think it represents a true bacteremia. This could have originated from his AV fistula or possibly from one of his legs because he has marked edema and pain especially in the left leg. The patient also today started having diarrhea. RECOMMENDATIONS: The patient's YENIFER of the Staph epidermidis to vancomycin is 2 and that can predict failure of treatment. Therefore my plan is to treat the patient with daptomycin in a reduced dose because of the patient's end-stage renal disease. Also, I am going to order a stool for Clostridium difficile and culture. I also aspirated a small amount of blood from the patient's left ankle, which is been sent to the microbiology lab for culture and susceptibility testing. PAST MEDICAL HISTORY/REVIEW OF SYSTEMS: Eyes and Ears: Patient does not have any trouble seeing or hearing. Neck: No stiffness. Respiratory: No cough or shortness of breath. Cardiac: No chest pain or palpitations. : The patient rarely if ever passes urine. He has not had dysuria. Bones joints muscles: The patient has had marked edema of both ankles and feet for a long time. His right leg is also swollen from the from the ankle up to the knee. The patient's left leg according to the patient was just as swollen as the right leg and in the past week the swelling from the knee to the ankle has also increased. Both the patient's feet and ankles are very swollen and they feel somewhat fluctuant, but when I did aspirate at the ankle area, no purulence was found. Neurologic: The patient has not had any seizures. He has not had any recent loss of motor or sensory function. 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 He has had amputation of toes on both the left and right foot and he has had actually 2 surgeries on each foot for a total of 4 surgeries. He also has had an AV fistula surgically created in his left arm. MEDICAL DISEASES: Positive for end-stage renal disease. The patient is on hemodialysis. He also has hypertension and hyperlipidemia. INFECTIOUS DISEASE: Infectious disease history is positive for brain abscess, pneumonia, and bilateral foot infections. FAMILY HISTORY: Positive for diabetes mellitus, hypertension, myocardial infarction, and stroke. SOCIAL HISTORY: [place] He is . He does not have any drug allergies. He is disabled. The he does not have any pets at home. He does not smoke cigarettes, drink alcoholic beverages or abuse drugs. HOME MEDICATIONS: Include the following: Elavil, aspirin, Tums, carvedilol, Depakote, Apresoline, insulin, lisinopril, and oxycodone. PHYSICAL EXAMINATION: Vital Signs: Temperature temperature is 98 degrees, pulse 71, respirations 14, blood pressure 152/78. The patient weighs 250 pounds. General: This is an obese, middle- aged male. He is in no acute distress. Head/eyes/ears/nose/throat: He can hear my spoken words and see near objects. He does not have any drainage from his nose or ears. Neck: No meningismus. Lungs: Clear to auscultation. Cardiovascular: Regular heart rate. Abdomen: Soft and nontender. Extremities: The patient's left arm has an AV fistula in place. Both legs have edema as mentioned above, especially in the feet and the ankles. The area from the left leg knee to the ankle is more swollen than the corresponding part on the right leg. Neurologic: Patient is alert. He can move his extremities. There is no tremor. His sensation is intact to touch. His memory as regarding his medical history is intact. Integument: No rash noted. Thank you for the consult. cc: MD Artemio Franco MD MTDD
[2018-08-11] MEDS: COREG PO SCH ×2 (17:37→20:16)
[2018-08-11] MEDS: PRINIVIL PO SCH (17:37)
--- NOTE | 2018-08-11 19:39 | PROGRESS NOTE ---
DATE: 08/11/2018 SUBJECTIVE: The patient went for stress test. I spoke to Dr. Tod Landry. He had a Staph epidermidis bacteremia. He had an AV graft. He had a metal in the left side on the left leg. OBJECTIVE: Temperature is 98 degrees. Vitals are stable.HEENT: Within normal limits. Chest: Clear. Heart: Sounds are regular. Abdomen: Belly is soft and nontender. Extremities: Left leg is swollen. LABORATORY: Blood cultures 2/2 positive for Staph epidermidis. CBC: White cell count 10, hematocrit 24, and platelets 391,000. Sodium 130, potassium 4.2, BUN 36, and creatinine 5.9. CRP was 122. Sedimentation rate is 128. ASSESSMENT AND PLAN: 1. Positive troponin, cardiomegaly. EF is 47%. Mild global hypokinesis, no reversible ischemia. 2. Echocardiography findings with moderate concentric LV hypertrophy and EF 50%. 3. End-stage kidney disease on hemodialysis as per Dr. Palumbo. 4. Left leg swelling. No evidence of DVT. 5. Staph epidermidis resistant to vancomycin bacteremia. Consult with Dr. Tod Landry. He has been planning to change vanc to the daptomycin at least for 6 weeks. 6. Anemia with erythropoietin injections and transfusion as needed. 7. Diabetes. Follow up on sliding scale. 8. Elevated sedimentation rate, CRP with metal in the left foot. I am planning to do 6 weeks of antibiotics with daptomycin. We will discuss with Dr. Palumbo. 9. Hypertension is stable, and will follow up. LEVEL OF DOCUMENTATION: 25 minutes. cc: Artemio Ness MD
[2018-08-11] MEDS: ELAVIL PO SCH (20:16)
[2018-08-11] MEDS: ASPIRIN PO SCH (20:16)
[2018-08-11] MEDS: EPOGEN SUBQ SCH (20:16)
[2018-08-12] MEDS: HUMULIN R SUBQ SCH ×4 (06:17→21:04)
[2018-08-12 08:03] LABS: ALBUMIN 2.7 g/dL (3.5-5.0); CALCIUM 8.8 mg/dL (8.8-10.2); CREATININE 4.5 mg/dL (0.7-1.2); PHOSPHORUS 3.1 mg/dL (2.7-4.5); POTASSIUM 3.9 mmol/L (3.5-5.1)
[2018-08-12] MEDS: APRESOLINE PO SCH ×3 (10:38→18:55)
[2018-08-12] MEDS: TUMS PO SCH ×2 (10:38→21:05)
[2018-08-12] MEDS: LASIX IV SCH (10:39)
[2018-08-12] MEDS: PRINIVIL PO SCH (10:39)
[2018-08-12] MEDS: COREG PO SCH (10:40)
[2018-08-12] MEDS: PERCOCET-10 PO PRN ×3 (14:08→23:22)
--- NOTE | 2018-08-12 15:00 | NEPHROLOGY PROGRESS NOTE ---
DATE: 08/12/2018 TIME SEEN: 06. SUBJECTIVE: Mr. Toussaint is resting in bed. He states that he is feeling fairly well. Denies any chest pain or increased work of breathing. Continues to complain of ache to left foot. OBJECTIVE: Most recent vital signs: His last temperature 97.7 degrees, blood pressure 152/89, heart rate 74, respirations 16. He is on room air, last recorded saturation 96%. He has had 330 mL in, 3.1 L removed on dialysis yesterday. LABORATORY DATA: Sodium 132, potassium 3.9, chloride 92, CO2 30, BUN 25, creatinine 4.5, glucose 274. His anion gap is 10. His calcium is 8.8, phosphorus 3.1, albumin 2.7. The patient had a previous hemoglobin of 7.8 on the . Routine culture of left ankle per aspiration shows no growth. PHYSICAL EXAMINATION: General: This is a 47-year-old male. He is resting quietly in bed. He appears in no acute distress. Skin: Warm and dry. HEENT: Normocephalic, atraumatic. Conjunctiva is pale pink. He has MILEY. Mucous membranes dry. Neck: Supple. Trachea midline. No evidence of JVD. Cardiovascular: He is regular rate and rhythm. He has a gallop. Lungs: Clear to auscultation bilaterally, equal excursion. He is on room air. Abdomen: Large, round, soft, nontender. Positive bowel sounds. Genitourinary: Not inspected. Minimal void with dialysis assist. Extremities: Continues with 2+ edema to the lower leg though this does look less swollen compared to yesterday. AV fistula to the left upper arm. Integumentary: No rashes or lesions noted. Neurological: Alert and oriented x3. ASSESSMENT AND PLAN: 1. Chronic kidney disease stage 5D associated with fluid volume overload. We have dialyze the patient for 3 days. Left leg seems less swollen. He does have moderate hyponatremia as well as metabolic acidosis. We will hold on dialysis today and plan for treatment in the a.m. 2. Anemia. Hemoglobin has been low but stable. 3. Positive blood cultures. Dr. Landry is currently following. Aspiration of left ankle is negative for growth at this time. I would like to thank you for allowing us to follow with this patient. Dictated by KATHY Quevedo for Parviz Palumbo MD Face to face encounter, data reviewed, discussed with Karin Velez on 08/12/18. I agree with the above assessment and plan of care. cc: KATHY Quevedo MD Jagan Reddy, MD [facility]
--- NOTE | 2018-08-12 20:28 | INFECTIOUS DISEASE PROGRESS NO ---
DATE: 08/12/2018 PRESENT ILLNESS: Mr. Toussaint is being treated for a Staphylococcus epidermidis bacteremia, which may have originated from his AV fistula or possibly his lower extremities. We are awaiting a left ankle aspirate which is being cultured. MEDICATIONS: He is receiving daptomycin 700 mg IV after each dialysis. Today is day 1 of treatment. PHYSICAL EXAMINATION: Vital signs: Temperature is 98.4 degrees, pulse rate 77, respiratory rate 16, blood pressure 149/75, O2 saturation is 96% on room air.General: This is a chronically ill- appearing middle-aged gentleman. He is lying in bed, currently in no acute distress. HEENT: Atraumatic, normocephalic. Oral mucous membranes are pink and moist. Conjunctivae are pale. Neck is supple. Trachea is midline. Cardiovascular: Heart rate and rhythm are regular. Normal sinus rhythm on the monitor. Respiratory: Lung sounds are clear to auscultation bilaterally. Diminished in the bases. Abdomen is soft, round and nontender. Bowel sounds are active. Extremities: There is an AV fistula to the left upper arm. The site has a good thrill and bruit. Bilateral lower extremities are edematous with multiple scars and previous toe amputations. The left lower extremity is 2 to 3+ pitting edema and the right lower extremity is 1 to 2+. Neurologic: He is awake, alert and oriented and able to move all his extremities without difficulty in the bed. LABORATORY DATA: No CBC available today; however, his creatinine is 4.5, GFR 17. His blood cultures grew Staphylococcus epidermidis. DIAGNOSTIC DATA: No imaging reports today. ASSESSMENT AND PLAN: Mr. Toussaint has a Staphylococcus epidermidis bacteremia and is receiving daptomycin, which we will continue at this time. Beginning of his treatment was started yesterday, so we will have blood cultures drawn 48 hours after the start of treatment to get baseline sterile cultures. We will go ahead and put in a CK total to be drawn on Thursday morning. The patient has metal rods in both lower extremities, and will have to be treated for the bacteremia for a total of 6 weeks from the time of sterile blood cultures. Afterwards, he will need low-dose, oral prophylaxis to prevent return of the Staph. I have talked to him about the likely plan of having daptomycin given to him after dialysis as an outpatient. For now, he will need to stay in the hospital until we can get a set of sterile blood cultures. We will await the culture of the aspirate from his left ankle for any treatment as needed. These plans have been discussed with and recommended by Dr. Landry. COMORBIDITIES: for Mr. Toussaint include end-stage renal disease with hemodialysis, and multiple lower extremity surgeries with amputations. Dictated by KATHY Gonzalez for Tod Landry MD cc: MD Artemio Franco MD [facility]
[2018-08-12] MEDS: ASPIRIN PO SCH (21:05)
[2018-08-12] MEDS: ELAVIL PO SCH (21:05)
--- NOTE | 2018-08-12 21:55 | PROGRESS NOTE ---
DATE: 08/12/2018 SUBJECTIVE: The patient thinks IV ABX will not work. He wants to amputate both legs. He is in lot of pain on the right side. He cannot take this pain and not able to wear the shoes. I appreciate the consultants. PHYSICAL EXAMINATION: Vital signs: Temperature is 98 degrees, pulse 83, blood pressure 150/83. HEENT: Within normal limits. Neck: Supple. Chest: Clear. Heart: Sounds are regular. Abdomen: Belly is soft, obese, nontender. Extremities: Left foot is diffusely swollen. LABORATORIES: SMA-7: Sodium 132, potassium 3.9, BUN 25, creatinine 4.5. He had a blood culture, Staphylococcus epidermidis. ASSESSMENT AND PLAN: 1. Left leg cellulitis with metal erika bacteremia. IV daptomycin for 6 weeks. Elevated sedimentation rate and C-reactive protein. 2. End-stage kidney disease as per Dr. Palumbo. 3. Chronic anemia due to dialysis, on Epogen. 4. Hypertension on Coreg 12.5 by mouth twice a day, hydralazine 100 three times a day, and lisinopril 40 daily. 5. Apparently, Dr. Stapleton has seen and will discuss about the plan. 6. Dr. Landry wants daptomycin 700 mg IV after each dialysis and will follow up. LEVEL OF DOCUMENTATION: 25 minutes. cc: Artemio Ness MD MTDD
[2018-08-13] MEDS: ZOFRAN IV PRN (01:31)
[2018-08-13] MEDS: COREG PO SCH ×3 (02:59→20:11)
[2018-08-13] MEDS: PERCOCET-10 PO PRN ×4 (03:38→22:04)
[2018-08-13] MEDS: HUMULIN R SUBQ SCH ×4 (06:18→22:05)
[2018-08-13] MEDS ORDERED: TIGHT: 0.2 ML/HR FOR DIALYSIS MISC PRN (06:49)
[2018-08-13] MEDS ORDERED: NS 2,000 ML MISC PRN (06:49)
[2018-08-13] MEDS ORDERED: HEPARIN IV PRN (06:49)
[2018-08-13 07:50] LABS: ALBUMIN 2.5 g/dL (3.5-5.0); CALCIUM 8.9 mg/dL (8.8-10.2); CREATININE 6.1 mg/dL (0.7-1.2); PHOSPHORUS 3.6 mg/dL (2.7-4.5); POTASSIUM 4.5 mmol/L (3.5-5.1)
[2018-08-13] MEDS: APRESOLINE PO SCH ×3 (08:13→16:36)
[2018-08-13] MEDS: LASIX IV SCH (08:14)
[2018-08-13] MEDS: EPOGEN SUBQ SCH (08:14)
[2018-08-13] MEDS: TUMS PO SCH ×2 (08:14→20:11)
[2018-08-13] MEDS: PRINIVIL PO SCH (08:14)
[2018-08-13] MEDS ORDERED: SODIUM CHLORIDE 0.9% INJ ONE (10:02)
[2018-08-13] MEDS ORDERED: PHENERGAN IV ONE (10:02)
--- NOTE | 2018-08-13 16:52 | NEPHROLOGY PROGRESS NOTE ---
DATE: 08/13/2018 SUBJECTIVE: He states he is feeling better but he is still having fever. Eating. No shortness of breath. OBJECTIVE: Vital Signs: Blood pressure 173/92, heart rate 76, respiration 18, afebrile. General: No acute distress. Skin: Warm and dry. Conjunctivae are pink. Neck: Neck veins are not visible. Heart: Regular with a gallop and murmur. Lungs: Equal. No crackles or wheezes. Abdomen: Soft, nontender. Bowel sounds present. Extremities: No change. Still with 2+ edema and joint abnormalities. IMPRESSION: 1. Chronic kidney disease 5D. Today is his routine dialysis day. 2. Volume status. No real evidence of volume overload. 3 to 4 L ultrafiltration today. 3. Electrolytes/acid base in target. 4. Anemia. Hemoglobin is below target. He is receiving erythropoietin. No IV iron because of his bacteremia. cc: MD Artemio Esparza MD
[2018-08-13] MEDS ORDERED: CUBICIN 700 MG in NS 100 ML IV ONE (17:00)
[2018-08-13] MEDS: ASPIRIN PO SCH (20:11)
[2018-08-13] MEDS: ELAVIL PO SCH (20:11)
--- NOTE | 2018-08-13 20:45 | PROGRESS NOTE ---
DATE: 08/13/2018 SUBJECTIVE: The patient is in good spirits and he wants to try IV antibiotics. EXAMINATION: Vital Signs: Temperature is 97 degrees, pulse 71, blood pressure is 150/84, weight 264 pounds. HEENT: Within normal limits. Neck: Supple. No lymphadenopathy. Chest: Clear. Heart: Sounds are regular. Extremities: Left side AV graft noted. Left leg is diffusely swollen with chronic pigmentation. INVESTIGATIONS: Sodium 127, potassium 4.5, BUN 37, creatinine 6.1. Ankle, left side, no growth. ASSESSMENT AND PLAN: 1. Left leg cellulitis. 2. Methicillin sensitive Staphylococcus aureus bacteremia. 3. End-stage kidney disease, on dialysis. 4. Type 2 diabetes. 5. Chronic anemia, due to kidney disease. 6. Positive troponin. PLAN: 1. Stress test is negative. 2. Dialysis as per Dr. Palumbo. 3. Anemia, on Epogen. 4. Patient is receiving daptomycin intravenously after dialysis. We will arrange home intravenous antibiotics after the dialysis. 5. Will continue to monitor over the weekend. 6. I appreciate the consultants and discussed with the family. The patient is anxious to amputate the legs. We will hold on. We will attempt to treat with intravenous antibiotics prior to the amputation. LEVEL OF DOCUMENTATION: 25 minutes. cc: Artemio Ness MD
[2018-08-13 21:08] LABS: URINE SOURCE CLEAN CATCH
[2018-08-13 21:15] LABS: UR EPITHELIAL CELLS <10 /HPF (<10); URINE BACTERIA NEGATIVE /HPF; URINE RBC <10 /HPF (<10)
[2018-08-13 21:16] LABS: BILIRUBIN URINE NEGATIVE (NEGATIVE); BLOOD URINE TRACE (NEGATIVE); COLOR YELLOW; GLUCOSE URINE 500 mg/dL (NEGATIVE); KETONE URINE NEGATIVE (NEGATIVE); LEUKOCYTES URINE NEGATIVE (NEGATIVE); NITRITE URINE NEGATIVE (NEGATIVE); PROTEIN URINE >600 mg/dL (NEGATIVE); SP GRAVITY URINE 1.018; TURBIDITY URINE CLEAR (CLEAR); UROBILINOGEN URINE NORMAL (NORMAL)
[2018-08-13 21:37] LABS: UR AMPHETAMINES QUAL NONE DETECTED (NONE DETECT); UR BARBITUATES QUAL NONE DETECTED (NONE DETECT); UR BENZODIAZEPIN QUAL NONE DETECTED (NONE DETECT); UR CANNABINOIDS QUAL NONE DETECTED (NONE DETECT); UR COCAINE QUAL NONE DETECTED (NONE DETECT); UR METHADONE QUAL NONE DETECTED (NONE DETECT); UR OPIATES QUAL NONE DETECTED (NONE DETECT); UR OXYCODONE QUAL PRESUMPTIVE POSITIVE (NONE DETECT); UR PCP QUAL NONE DETECTED (NONE DETECT)
[2018-08-14] MEDS: HUMULIN R SUBQ SCH ×4 (06:39→21:45)
[2018-08-14] MEDS: PERCOCET-10 PO PRN ×4 (08:27→22:57)
[2018-08-14] MEDS: PRINIVIL PO SCH (08:28)
[2018-08-14] MEDS: LASIX IV SCH (08:32)
[2018-08-14] MEDS: COREG PO SCH ×2 (08:32→21:45)
[2018-08-14] MEDS: APRESOLINE PO SCH ×3 (08:32→16:25)
[2018-08-14] MEDS: TUMS PO SCH ×2 (08:33→21:45)
[2018-08-14 08:38] LABS: ALBUMIN 2.6 g/dL (3.5-5.0); CALCIUM 9.1 mg/dL (8.8-10.2); PHOSPHORUS 3.4 mg/dL (2.7-4.5)
--- NOTE | 2018-08-14 13:44 | PROGRESS NOTE ---
DATE: 08/14/2018 SUBJECTIVE: The patient has no new complaints today. OBJECTIVE: Vital Signs: Temperature is 97.7 degrees Fahrenheit, pulse 85 and regular, respirations 18, blood pressure 160/89, oxygen saturation is 100% on room air. HEENT: Normocephalic. EOMS intact. PERRLA. Throat clear. Lungs: Clear to auscultation and percussion without rhonchi, rales, or wheezes. Heart: Regular rate and rhythm without murmurs, gallops, or friction rubs. Abdomen: Soft with active bowel sounds. No organomegaly or tenderness. Neurological exam: Intact grossly. Left lower extremity does have redness. LABS: Urinalysis done yesterday showed 10 to 20 WBCs/HPF. Urine culture is pending. One blood culture came back with Staph epidermidis, and he is being treated with vancomycin. His sodium is 132, potassium 5.0, creatinine is 5.0, BUN 34. Hemoglobin 7.8, hematocrit 24.4. The patient is on dialysis. ASSESSMENT: 1. Staphylococcus epidermidis bacteremia. 2. Probable urinary tract infection. Awaiting cultures. 3. Chronic kidney disease on dialysis. 4. Anemia. 5. Cellulitis, left lower extremity, mostly left foot. PLAN: Continue to support. Continue IV antibiotics and await cultures. cc: MD Artemio Gaston Jr, MD
[2018-08-14] MEDS: ASPIRIN PO SCH (21:45)
[2018-08-14] MEDS: ELAVIL PO SCH (21:45)
--- NOTE | 2018-08-14 22:22 | NEPHROLOGY PROGRESS NOTE ---
DATE: 08/14/2018 SUBJECTIVE: He is in bed comfortable on room air. No shortness of breath. He feels like his swelling is improved. OBJECTIVE: Vital Signs: Blood pressure 175/85, heart rate 83, respiration 18, afebrile. Generally: No acute distress. Skin: Warm and dry. Eyes: Conjunctivae are pink. Neck: Neck veins are not distended. Heart: Regular. Lungs: Equal. No crackles. Abdomen: Benign. Extremities: Have less edema, but still 1 to 2+. No clubbing or cyanosis. Neurologic: Nonfocal. IMPRESSION: 1. Chronic kidney disease 5D. His next scheduled dialysis treatment will be Thursday. 2. Euvolemic. Electrolytes and acid-base are in target. 3. Anemia is significant, but stable. Repeat blood cultures collected today are no growth so far. 4. Continue daptomycin. cc: MD Artemio Esparza MD
[2018-08-15] MEDS: PERCOCET-10 PO PRN ×2 (06:23→10:54)
[2018-08-15] MEDS: HUMULIN R SUBQ SCH ×4 (06:24→21:20)
--- NOTE | 2018-08-15 09:38 | INFECTIOUS DISEASE PROGRESS NO ---
DATE: 08/15/2018 PRESENT ILLNESS: The patient is currently being treated for a Staph epidermidis bacteremia. The exact origin of the bacteremia is uncertain. It could have come from his AV fistula or possibly it could have come from one of the patient's feet. Because the organism has an YENIFER of 2 to vancomycin, I am using daptomycin instead of vancomycin because of the high YENIFER. MEDICATIONS: This is day 6 of daptomycin. OBJECTIVE: Vitals: Temperature 98.8 degrees, pulse 78, respirations 18, blood pressure 168/88. Generally: This is an ill-appearing, middle-aged male. He is sitting up in a chair today. He is in no acute distress. Head, eyes, ears, nose, and throat: He can hear my spoken words and see near objects. He does not have any white coating. He does not have any white patches on his tongue. Neck: He does not have any pain when he moves his head. Lungs: Clear to auscultation. Cardiovascular: Heart rate is regular. Abdomen: Soft and nontender. Extremities: The patient has an AV fistula in the left arm. The site is not tender or draining. Both of the patient's feet and ankles are swollen. There is no drainage coming from either foot or ankle. He has previously had surgery on both feet and ankles. Neurologic: Patient is alert. He can move his extremities. There is no tremor. He is sitting in a chair today. LABORATORY AND X-RAY: The patient's initial cultures grew Staph epidermidis. Repeat blood cultures were obtained yesterday and the results are pending. The patient also had a culture from his ankle and also from the urine. Both of these cultures are negative. There is no new radiographic study today on the patient. ASSESSMENT AND PLAN: 1. The patient has a Staph bacteremia. Day 1 of treatment with daptomycin will be the first day that the patient's repeat blood cultures are sterile. For now, I am going to continue with daptomycin. As regarding his swollen feet, he does not seem to elevate them much, even though I told him it would be best to elevate his legs as much as possible. I ordered a CK for tomorrow. 2. Comorbidities: The patient is obese and has chronic edema of his legs. He also has end-stage renal disease and is on dialysis. The patient has had multiple lower extremity surgeries, including amputations of his toes. cc: MD Artemio Franco MD MTDD
[2018-08-15] MEDS: LASIX IV SCH (09:56)
[2018-08-15] MEDS: PRINIVIL PO SCH (09:56)
[2018-08-15] MEDS: APRESOLINE PO SCH ×3 (09:56→16:28)
[2018-08-15] MEDS: COREG PO SCH ×2 (09:57→21:17)
[2018-08-15] MEDS: TUMS PO SCH ×2 (09:57→21:17)
[2018-08-15] MEDS: ZOFRAN IV PRN (10:54)
--- NOTE | 2018-08-15 11:08 | PROGRESS NOTE ---
DATE: 08/15/2018 SUBJECTIVE: The patient states is left leg is hurting. He has asked for something for pain. The nurse is bringing this for him. He has also been a little nauseated. We will make sure he has something for nausea as well. OBJECTIVE: Vital Signs: Blood pressure is 150/85, respirations 18, pulse 81, temperature 97.6 degrees Fahrenheit. Oxygen saturation on room air is 99%. HEENT: Normocephalic. EOMs intact. PERRLA. Throat clear. Lungs: Clear to auscultation and percussion without rhonchi, rales, or wheezes. Heart: Regular rate and rhythm without murmurs, gallops, friction rubs. Abdomen: Soft. Active bowel sounds. No organomegaly or tenderness. Extremities: Lower extremities are swollen, especially his left lower leg from cellulitis. LABORATORY DATA: Urine culture shows no growth. Initial blood culture did grow Staph epidermidis. Repeat blood cultures are pending. ASSESSMENT: 1. Staph epidermidis bacteremia. 2. Cellulitis of left lower extremity. 3. Diabetes mellitus. 4. End-stage renal disease. 5. Hypertension. 6. History of deep venous thrombosis. 7. History of osteomyelitis. PLAN: We will continue antibiotics. cc: MD Artemio Gaston Jr, MD
[2018-08-15] MEDS ORDERED: SODIUM CHLORIDE 0.9% INJ PRN (14:53)
[2018-08-15] MEDS: PHENERGAN IV PRN ×2 (16:28→21:18)
[2018-08-15] MEDS: ELAVIL PO SCH (21:17)
[2018-08-15] MEDS: ASPIRIN PO SCH (21:17)
[2018-08-16] MEDS: PERCOCET-10 PO PRN ×4 (01:20→23:56)
[2018-08-16] MEDS: PHENERGAN IV PRN ×3 (01:21→10:00)
[2018-08-16] MEDS ORDERED: HEPARIN IV PRN (07:26)
[2018-08-16] MEDS ORDERED: NS 2,000 ML MISC PRN (07:26)
[2018-08-16] MEDS ORDERED: TIGHT: 0.2 ML/HR FOR DIALYSIS MISC PRN (07:26)
[2018-08-16] MEDS: TUMS PO SCH ×2 (08:11→21:02)
[2018-08-16] MEDS: PRINIVIL PO SCH (08:11)
[2018-08-16] MEDS: APRESOLINE PO SCH ×3 (08:11→19:20)
[2018-08-16] MEDS: COREG PO SCH ×2 (08:11→21:02)
[2018-08-16] MEDS: LASIX IV SCH (08:12)
[2018-08-16] MEDS: EPOGEN SUBQ SCH (08:53)
[2018-08-16] MEDS ORDERED: CUBICIN 700 MG in NS 100 ML IV ONE (13:00)
[2018-08-16] MEDS: HUMULIN R SUBQ SCH ×3 (13:43→21:16)
--- NOTE | 2018-08-16 18:33 | NEPHROLOGY PROGRESS NOTE ---
DATE: 08/16/2018 SUBJECTIVE: Patient is sitting up in bed. I saw him while he is undergoing dialysis. OBJECTIVE: Vital Signs: Temperature 98.4, pulse 77, respiratory rate 17, blood pressure 155/88 intake 550 mL. Output not measured. General: This is a middle-aged gentleman sitting up in bed. Awake, alert, no acute distress. HEENT: Normocephalic, atraumatic. MILEY. Neck: Supple without JVD. Cardiovascular: Regular rate and rhythm. No murmur. Pulmonary: Clear bilaterally. Equal excursion. Abdomen: Soft, with positive bowel sounds. : Not inspected. Extremities: He continues with significant edema to the feet. He has 1 to 2+ pretibial. Integumentary: Skin is warm and dry. Neurologic: Grossly nonfocal. LAB DATA: On August 14, his potassium was 5.0. ASSESSMENT AND PLAN: 1. End-stage renal disease management. Today is his routine dialysis day. He will dialyze on a 2 K bath/Ultrafiltration to dry weight 3.5 hour treatment. 2. Staphylococcus epidermidis bacteremia, remains on daptomycin. 3. Fluid volume, he is not overloaded. Dictated by KATHY De Los Santos for Parviz Palumbo MD Face to face encounter, data reviewed, discussed with Tabitha Mckeon on 08/16/18. I agree with the above assessment and plan of care. cc: MD Artemio Esparza MD [facility]
--- NOTE | 2018-08-16 19:04 | PROGRESS NOTE ---
DATE: 08/16/2018 SUBJECTIVE: The patient is doing better. He is going for dialysis today. IJ was infiltrated. OBJECTIVE: Vital signs: Temperature is 97 degrees, blood pressure 160/89. HEENT: Within normal limits. Neck: Supple. Chest: Bilateral air entry. Cardiovascular: Heart sounds are regular. Belly is soft, nontender. Good bowel sounds. Left leg is diffusely swollen. INVESTIGATIONS: CBC: White cell count 10, hematocrit 24. Blood sugars doing very well. Repeat blood cultures negative from 08/14/2018. ASSESSMENT AND PLAN: 1. Methicillin resistant Staphylococcus epidermidis, day 6 of daptomycin. We will discuss with Dr. Palumbo about the maintenance treatment. 2. End-stage kidney disease on dialysis and hypertension, stable, with hydralazine 100 t.i.d., lisinopril 40 daily, Coreg 12.5 p.o. b.i.d. 3. Chronic pain Neurontin at bedtime. Discontinue IV Lasix. Repeat the labs in the morning with sedimentation rate and CRP. We will make the disposition/plans about arranging IV antibiotics. LEVEL OF DOCUMENTATION: 25 minutes. cc: Artemio Ness MD MTDD
--- NOTE | 2018-08-16 19:09 | INFECTIOUS DISEASE PROGRESS NO ---
DATE: 08/16/2018 PRESENT ILLNESS: Mr. Toussaint is being treated for a Staph epidermidis bacteremia, the origin of that could possibly be his AV fistula or multiple issues he has had with his lower extremities. MEDICATIONS: He is on Daptomycin 700 mg IV after each dialysis. Today is day 2 of his treatment for bacteremia. PHYSICAL EXAMINATION: Vital Signs: Temperature is 97.6, pulse rate 82, respiratory rate 19, blood pressure 179/91, O2 saturation is 100% on nasal cannula. General: This is a chronically ill-appearing, middle-aged gentleman. He is lying in bed, currently in no acute distress. HEENT: Atraumatic, normocephalic. Oral mucous membranes are pink and moist. Conjunctivae are pale. Neck: Supple. Trachea is midline. Cardiovascular: Heart rate is regular. Respiratory: Lung sounds are clear to auscultation in the upper lobes. Mild rales noted in the bases. Abdomen: Soft, round, nontender. Bowel sounds are active. Extremities: He has significant pitting edema noted to his bilateral lower extremities and has had a history of multiple surgeries with toe amputations bilaterally. Neurologic: He is awake, alert, and oriented. Able to move around in bed independently. LABORATORY AND X-RAY: None available today. ASSESSMENT AND PLAN: Mr. Toussaint is being treated for Staph bacteremia. Based on his sterile blood cultures, today is day 2 of the treatment for his bacteremia. The nurses are having a difficult time getting an IV in him, so today after dialysis, they gave him his daptomycin in the department, after dialysis was complete. We will continue to do that, rather than put in another IV line, and when the patient goes home, hopefully he will be able to get daptomycin after each dialysis as an outpatient. Because of the rods in his bilateral lower extremities, he will need a total of 6 weeks of treatment. These plans have been discussed with and recommended by Dr. Landry. COMORBIDITIES: For Mr. Toussaint include chronic lower extremity edema, end- stage renal disease with hemodialysis, and multiple lower extremity surgeries with rods and multiple toe amputations. Dictated by KATHY Gonzalez for Tod Landry MD cc: MD Artemio Franco MD MTDD
[2018-08-16] MEDS: ELAVIL PO SCH (21:02)
[2018-08-16] MEDS: ASPIRIN PO SCH (21:02)
[2018-08-17] MEDS: HUMULIN R SUBQ SCH ×2 (06:35→08:39)
[2018-08-17 06:57] LABS: HEMATOCRIT 25.6 % (42.0-52.0); HEMOGLOBIN 7.8 g/dL (14.0-18.0); MCH 31.1 PG (27-31); MCHC 30.5 g/dL (33-37); MPV 8.8 FL (7.4-10.4); RBC 2.51 XMIL (4.7-6.1); RDW 14.6 % (11.5-14.5); WBC 8.05 X1000 (4.8-10.8)
[2018-08-17 07:21] VITALS: BP 161/91
[2018-08-17 07:21] LABS: C REACTIVE PROT QUANT 74.99 mg/L (0.00-5.00); CALCIUM 8.7 mg/dL (8.8-10.2); POTASSIUM 5.4 mmol/L (3.5-5.1)
[2018-08-17 07:23] LABS: CREATININE 5.7 mg/dL (0.7-1.2)
[2018-08-17] MEDS: PRINIVIL PO SCH (08:23)
[2018-08-17] MEDS: APRESOLINE PO SCH (08:23)
[2018-08-17] MEDS: COREG PO SCH (08:24)
[2018-08-17] MEDS: TUMS PO SCH (08:24)
[2018-08-17] MEDS: PERCOCET-10 PO PRN (08:24)
--- NOTE | 2018-08-17 09:18 | NEPHROLOGY PROGRESS NOTE ---
DATE: 08/17/2018 SUBJECTIVE: The patient is sitting up on the side of the bed. No complaints. Underwent dialysis yesterday without difficulty. OBJECTIVE: Vital Signs: Temperature 98.8 degrees, pulse 87, respiratory rate 16, blood pressure 132/74. Intake 360 mL, output 5.4 L. General: Middle-aged gentleman, sitting up on the side of the bed. He is awake and alert. He is in no acute distress. HEENT: Normocephalic, atraumatic. MILEY. Neck: Supple. No JVD. Cardiovascular: Regular rate and rhythm. Pulmonary: Clear. Abdomen: Soft. Positive bowel sounds. : Minimal void. Extremities: There is 1+ pretibial edema. He continues with large, swollen feet. Integumentary: Skin is warm and dry. LABORATORY DATA: WBC of 8.0, hemoglobin 7.8. Sodium 128, potassium 5.4, CO2 of 24, creatinine 5.7. ASSESSMENT AND PLAN: 1. Chronic kidney disease 5D. His routine dialysis day is Thursday, Thursday, Thursday. Will continue this. 2. Staphylococcus epidermidis bacteremia. Remains on daptomycin. He will need to continue this for 5 more weeks on dialysis days. Will contact the [facility] and request that they give that to him with each dialysis treatment. DISPOSITION: He can be discharged at the discretion of the primary. Dictated by KATHY De Los Santos for Parviz Palumbo MD Face to face encounter, data reviewed, discussed with Tabitha Mckeon on 08/17/18. I agree with the above assessment and plan of care. cc: MD Artemio Esparza MD MTDD
--- NOTE | 2018-08-17 23:03 | DISCHARGE SUMMARY ---
ADMISSION DATE: 08/08/2018 DISCHARGE DATE: 08/17/2018 DISCHARGING DIAGNOSIS: Left foot cellulitis. SECONDARY DIAGNOSIS: 1. With insulin resistant Staph epidermidis bacteremia 2/. 2. Diabetes, insulin dependent on insulin pump. 3. End-stage kidney disease on hemodialysis 3 times a week with left arteriovenous graft. 4. History of epilepsy. 5. Hypertension. 6. Migraine headaches. 7. Complicated diabetes with neuropathy . 8. History of amputation of great toe on 2nd right foot and 3rd toe on the left. Reconstructive surgeries of left ankle by Dr. Motleys. CONSULTS: 1. Dr. Palumbo for dialysis. 2. Dr. Tod Landry. 3. Dr. Christiansen. PROCEDURES: Echocardiography, mild aortic valve sclerosis without stenosis. Moderate pulmonary hypertension. Concentric LV hypertrophy, EF 50%, mild left atrial enlargement. Myocardial perfusion scan no chest pain, negative Lexiscan, left ventricle dilated. No evidence of ischemia and fixed defect in inferior wall. EF is 47%. RADIOLOGY PROCEDURES: X-ray of left lower leg chronic postsurgical changes, thickened periosteal reaction over the distal tibia, intramedullary erika transfixing the tibial talar joint. Ankylosis of the distal tibia and fibula. Venous Doppler studies, no DVT except the inguinal lymphadenitis. Chest x-ray, cardiomegaly with mild pulmonary edema. BRIEF HISTORY: Please see the H and P that was done by hospitalist. In brief he is a 47-year-old male, complicated historian, complicated diabetes with multiple surgeries in both feet with neuropathy, end-stage kidney disease on dialysis, came in with altered mental status, fever, confusion, left leg cellulitis. HOSPITAL COURSE: 1. Chest x-ray cardiomegaly with pulmonary edema. EKG is nondiagnostic. Positive troponin. Subsequent was seen by Dr. Christiansen. Echocardiogram stress test, no reversible ischemia. The patient is asymptomatic. If he has symptoms, consider doing the left heart catheterization. 2. Left leg cellulitis with positive bacteremia with gram-positive cocci reported methicillin- resistant Staph epidermidis. The patient was given IV vancomycin postdialysis. Sedimentation rate and CRP were high. Dr. Landry was consulted. Since he has metal in the left leg he was not sure where the bacteremia was noted and he would continue 6 weeks of daptomycin 700 mg postdialysis for 6 weeks. The antibiotics were arranged through Dr. Palumbo and they are going to give the daptomycin 3 times a week after dialysis. 3. Anemia, chronic kidney disease. Hematocrit 25. No signs of GI bleeding noted. The patient was receiving erythropoietin. Complicated diabetes with neuropathy on insulin pump. He also has hypertension, heart disease on amlodipine lisinopril, hydralazine and Coreg. 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 Previous stress test was also negative in 2017. He has a history of diastolic congestive heart failure, needs to control the blood pressure. At the time of discharge patient is stable. LABS: CBC. White cell count 8, hematocrit 25.6, platelets 397,000, sedimentation rate is 111. Sodium 128, potassium 5.4, BUN 42, creatinine 0.7, glucose 115. CRP 74.99. DISCHARGE INSTRUCTIONS: 1. Follow up with Dr. Jackson on maintenance hemodialysis along with daptomycin 700 mg 3 times a week postdialysis for 6 weeks and reevaluate sedimentation rate and CRP. 2. Depakote 1000 p.o. b.i.d., lisinopril 40 mg daily, aspirin 81 mg daily, hydralazine 100 p.o. t.i.d., amitriptyline 10 at bedtime, Coreg 12.5 p.o. b.i.d., insulin pump and calcium carbonate 4 mg p.o. b.i.d. Erythropoietin injections as per Dr. Palumbo. cc: Parviz Palumbo MD
== END 2018-08-17 10:28 | disposition home or self-care (01) | DRG 602 ==
LOC: ED 18:38 → 3N 22:57 → SUATTDRO 22:57 → OBSVTOIN 22:57 → INTOOBSV 22:57 → 3N 08-11 20:38
PROVIDERS: ADMIT Internal Medicine; ATTEND Internal Medicine
CPT/HCPCS: 71020; 71046; 73590; 73630; 78452; 80048; 80053; 80069; 80101; 80301; 80307; 80324; 80345; 80346; 80353; 80358; 80361; 80365; 81001; 82550; 82948; 83605; 83880; 83992; 84484; 85025; 85027; 85610; 85651; 85730; 86140; 87040; 87070; 87077; 87088; 87186; 93005; 93017; 93306; 93971; 96374; 99285; A9270; A9500; G0431; G0434; G0479; G0480; J0696; J0878; J0885; J1644; J1940; J2405; J2550; J2785; J3370; J7030; XXXXX

== ENCOUNTER 2018-10-17 11:19 | Inpatient (IN) ==
--- NOTE | 2018-10-17 12:09 | Diag Imaging Result Doc PS360 ---
EXAM: ANKLE COMPLETE LEFT HISTORY: pain, STS TECHNIQUE: Left ankle, three views COMPARISON: 08/10/2018 FINDINGS: There are extensive postsurgical and arthritic changes to the ankle. There is a large amount of heterotopic bone in the soft tissues posterior to the distal tibia and fibula. Lucent area between the tibia and talus has an appearance similar to the prior study. No change in the resumption about the intramedullary tibial erika. Severe atherosclerosis. IMPRESSION: Stable chronic degenerative and postsurgical changes. Electronically signed by Marciano Unger 10/17/2018 12:07 PM
--- NOTE | 2018-10-17 12:11 | Diag Imaging Result Doc PS360 ---
EXAM: FOOT COMPLETE LEFT HISTORY: pain, STS TECHNIQUE: Left foot, three views COMPARISON: 08/10/2018 FINDINGS: The second and third toes have been amputated. There are rods to the first, second, and third metatarsals and tarsal bones. There is a large amount of heterotopic bone about the tarsal bones. Lucent areas within the postsurgical site are similar in appearance. Severe atherosclerosis. IMPRESSION: No definite interval change. Electronically signed by Marciano Unger 10/17/2018 12:08 PM
[2018-10-17 13:14] LABS: ALB/GLOB RATIO 0.9; ALBUMIN 3.4 g/dL (3.5-5.0); CALCIUM 8.5 mg/dL (8.8-10.2); POTASSIUM 3.9 mmol/L (3.5-5.1); TOTAL BILIRUBIN 0.86 mg/dL (0.20-1.00); TOTAL PROTEIN 7.4 g/dL (6.3-8.3)
[2018-10-17 13:15] LABS: CREATININE 8.2 mg/dL (0.7-1.2)
[2018-10-17 13:24] LABS: BASO# 0.05 X1000 (0.0-0.2); BASO% 0.8 % (0.0-0.8); EOS# 0.24 X1000 (0.0-0.7); EOS% 3.8 % (0.0-10.0); HEMATOCRIT 26.8 % (42.0-52.0); HEMOGLOBIN 8.6 g/dL (14.0-18.0); LYMPH# 1.34 X1000 (1.2-3.4); MCH 29.7 PG (27-31); MCHC 32.1 g/dL (33-37); MCV 92.4 FL (81-99); MONO# 0.54 X1000 (0.11-0.59); MONO% 8.5 % (1.7-9.3); MPV 9.7 FL (7.4-10.4); NEUT# 4.21 X1000 (1.4-6.5); NEUT% 65.9 % (42.2-75.2); PLT 199 X1000 (130-400); RDW 13.7 % (11.5-14.5); WBC 6.38 X1000 (4.8-10.8)
[2018-10-17 13:44] LABS: C REACTIVE PROT QUANT 93.18 mg/L (0.00-5.00)
[2018-10-17 14:10] LABS: SED RATE 63 mm/hr (0-15)
--- NOTE | 2018-10-17 17:27 | PROVIDER DOCUMENTATION ---
This chart was entered by Bernice Ribeiro Scribe, acting as scribe for Pipo Escalera MD. HPI-General Adult - General Chief Complaint: Edema Stated Complaint: BAD COUGH/EDEMA IN LT LEG Time Seen by Provider: 10/17/18 11:31 Source: patient Allergies/Adverse Reactions: Patient Allergies Allergy/AdvReac Type Severity Reaction Status Date / Time No Known Allergies Allergy Verified 10/17/18 12:30 Home Medications: Home Medication List Medication Instructions Recorded Confirmed Last Taken Type Divalproex [Depakote] 1,000 mg PO BID 07/10/16 10/17/18 05/09/18 History Lisinopril [Zestril] 40 mg PO DAILY 11/22/16 10/17/18 05/09/18 History Aspirin 81 mg PO QPM 04/16/17 10/17/18 05/09/18 History Hydralazine [Apresoline] 100 mg PO TID 04/16/17 10/17/18 05/09/18 History Amitriptyline [Elavil] 10 mg PO HS 04/12/18 10/17/18 05/09/18 History Carvedilol 12.5 mg PO BID 04/12/18 10/17/18 05/09/18 History Insulin Aspart [Novolog] See Protocol SQ DIRECTED 04/15/18 10/17/18 05/09/18 History - History of Present Illness -Gen Adult Nature of Presenting Problems: 47 y/o male presents to ED with L foot/ankle pain and swelling onset 2 days ago. Pt has extensive hx of foot problems with multiple surgeries. Pt is on MWF dialysis. Pt also complains of breast pain and enlargement that is worse on the right onset months ago. Pt is alert and oriented. Location of Pain/Injury: reports: lower extremity, feet, other (breast) Pain Radiation: reports: no radiation Quality of Pain: reports: aching Severity: reports: moderate, severe Onset/Duration: reports: 2 days ago, other (months ago) Timing: reports: still present Context/Activities at Onset: reports: none Modifying Factors: worse with: movement, palpation, other (weight bearing) Associated Symptoms: reports: other (L foot/ankle pain and swelling; breast enlargement and pain) Similar Symptoms Previously?: No Recently seen or treated by another doctor?: No Review of Systems - Adult - REVIEW OF SYSTEMS - ADULT Constitutional: denies: chills, fever Eyes: reports: no symptoms reported Ears, Nose, Mouth & Throat: reports: no symptoms reported Cardiovascular: denies: chest pain, palpitations Respiratory: denies: cough, shortness of breath Gastrointestinal: denies: abdominal pain, diarrhea, nausea, vomiting Genitourinary: reports: no symptoms reported Musculoskeletal: reports: joint pain (L foot/ankle), joint swelling (L foot/ankle). denies: back pain Integumentary: reports: other (breast pain and enlargement). denies: hives Neurological: denies: dizziness/vertigo, seizure Psychiatric: reports: no symptoms reported Endocrine: reports: no symptoms reported Hematologic/Lymphatic: reports: no symptoms reported Allergic/Immunologic: reports: no symptoms reported All Other Systems: Reviewed and Negative Past History - Adult - PAST MEDICAL HISTORY-ADULT Review of Records: reports: Old Records Reviewed, Nursing Assessment Review, Medications Reviewed Major Childhood Illnesses: reports: denies history Cardiovascular: reports: HTN, hyperlipidemia, PVD (severe) Respiratory: reports: denies history Gastrointestinal: reports: denies history Obstetrical/Gynecological: reports: denies history Genitourinary: reports: dialysis (MWF), ESRD, kidney disease Musculoskeletal: reports: other (foot infection with ulcers) Neurological: reports: Seizures/Epilepsy, other (brain abscess with craniotomy) Psychiatric: reports: denies history Endocrine/Immune: reports: Diabetes, other (diabetic foot infection with ulcers) Other Conditions: reports: denies history - PRIOR SURGERIES/PROCEDURES Surgical/Procedure History: reports: indwelling device (port), orthopedic (extremity) (two toes removed from each foot; recent fusion surgery due to deformities in left charcot foot), other (brain abscess) - IMMUNIZATION STATUS Childhood Immunizations: See Nurse Assessment Flu Vaccine: See Nurse Assessment - FAMILY HISTORY Family History: reviewed, not pertinent - SOCIAL HISTORY Smoking: non-smoker Substance Use: none/never Alcohol Use Frequency: never Living Situation: family Physical Exam-General - PHYSICAL EXAM-ADULT Initial Vital Signs Reviewed: Yes - CONSTITUTIONAL General Appearance: appears well, alert, no apparent distress - EYES Eyes: PERRL/EOMI, pink conjunctivae - HEAD, EARS, NOSE, MOUTH & THROAT HENMT: normocephalic/atraumatic, moist mucous membranes, normal ENT inspection - RESPIRATORY Respiratory: chest non-tender, lungs clear, normal breath sounds - CARDIOVASCULAR Cardiovascular: normal peripheral pulses, regular rate, rhythm - CHEST (BREASTS) Chest/Breast: tenderness (bilateral; worse on the right), other (bilateral gynecomastia worse on the right) - MUSCULOSKELETAL Back Exam: normal inspection, no CVA tenderness, no vertebral tenderness Extremity: deformity (bilateral feet), swelling (L foot/ankle), tenderness (L foot/ankle), other (amputation of 2nd and 3rd digits of L foot; amputation of 1st and 2nd digits of R foot). negative: normal range of motion (decreased ROM of L foot/ankle due to pain and swelling), normal gait (due to L foot/ankle pain and swelling and foot deformities) - SKIN Integumentary: normal color, warm/dry, swelling (L foot/ankle), warm (LLE warmer than RLE), other (fissure to L anterior ankle due to swelling) - NEUROLOGIC Neurologic: grossly normal - PSYCHIATRIC Psych/Mental Status: normal mood/affect, normal thought content, normal thought process, oriented x 3 Progress - PLAN OF CARE/RESULTS Progress/Plan/Lab Results: Vital Signs - 8 hr 10/17/18 11:23 Temperature 98.3 F Pulse Rate 84 Respiratory Rate 20 Blood Pressure 194/97 O2 Sat by Pulse Oximetry 96 Orders Category Date Time Status ANKLE COMPLETE LEFT [RAD] Stat Exams 10/17/18 11:39 Taken FOOT COMPLETE LEFT [RAD] Stat Exams 10/17/18 11:39 Taken BLOOD CULTURE [BLDCUL] Stat Lab 10/17/18 11:38 Uncollected CBC WITH DIFF [HEME] Stat Lab 10/17/18 11:38 Uncollected COMPREHENSIVE METABOLIC PANEL [CHEM] Stat Lab 10/17/18 11:38 Uncollected CRP [C REACTIVE PROT QUANT] [CHEM] Stat Lab 10/17/18 11:38 Uncollected SED RATE [HEME] Stat Lab 10/17/18 11:38 Uncollected Laboratory Tests 10/17/18 10/17/18 12:45 12:45 WBC 6.38 RBC 2.90 L Hgb 8.6 L Hct 26.8 L MCV 92.4 MCH 29.7 MCHC 32.1 L RDW Std Deviation 13.7 Plt Count 199 MPV 9.7 Immature Gran % (Auto) 0.0 Neut % (Auto) 65.9 Lymph % (Auto) 21.0 [place] % (Auto) 8.5 Eos % (Auto) 3.8 Baso % (Auto) 0.8 Immature Gran # (Auto) 0.00 Neut # (Auto) 4.21 Lymph # (Auto) 1.34 [place] # (Auto) 0.54 Eos # (Auto) 0.24 Baso # (Auto) 0.05 ESR 63 H Sodium 131 L Potassium 3.9 Chloride 92 L Carbon Dioxide 24 L Anion Gap 15 BUN 34 H Creatinine 8.2 H Estimated GFR/1.73 m2 9 BUN/Creatinine Ratio 4 Glucose 212 H Calculated Osmolality 277 Calcium 8.5 L Total Bilirubin 0.86 AST 15 ALT 9 L Alkaline Phosphatase 254 H C-Reactive Prot, Quant 93.18 H Total Protein 7.4 Albumin 3.4 L Globulin 4.0 Albumin/Globulin Ratio 0.9 Result Diagrams: 10/17/18 12:45 10/17/18 12:45 - XRAY 1 XRAY: Left XRAY Study: Foot Impression: See EMR Report ([facility] - [address] [place] [address], [address], [place] [address] [facility] - [address] [place] [address] Department of Imaging Patient: VON MAI JrADM Date: 10/17/18MR#: [id number] : 1970ADM Status: PRE ERAcct#: [id number] Age/Sex: 47/MRoom/Bed: Loc: ED Ordering Physician: Pipo Escalera MD Family Physician: Robert Ness MD Reason for Procedure: pain, STS Signed EXAM: FOOT COMPLETE LEFT HISTORY: pain, STS TECHNIQUE: Left foot, three views COMPARISON: 08/10/2018 FINDINGS: The second and third toes have been amputated. There are rods to the first, second, and third metatarsals and tarsal bones. There is a large amount of heterotopic bone about the tarsal bones. Lucent areas within the postsurgical site are similar in appearance. Severe atherosclerosis. IMPRESSION: No definite interval change. Electronically signed by Marciano Unger 10/17/2018 12:08 PM 10/17/18 1208 Interpreting Physician: Marciano Unger MD Dictated Date/Time: 10/17/18 1207 cc: Pipo Escalera MD; Robert Ness MD) 2 XRAY: Left XRAY Study: Ankle Impression: See EMR Report ([facility] - [address], [address], [place] [address] [facility] - [address] [place] [address] Department of Imaging Patient: VON MAI JrADM Date: 10/17/18MR#: [id number] : 1970ADM Status: PRE ERAcct#: [id number] Age/Sex: 47/MRoom/Bed: Loc: ED Ordering Physician: Pipo Escalera MD Family Physician: Robert Ness MD Reason for Procedure: pain, STS Signed EXAM: ANKLE COMPLETE LEFT HISTORY: pain, STS TECHNIQUE: Left ankle, three views COMPARISON: 08/10/2018 FINDINGS: There are extensive postsurgical and arthritic changes to the ankle. There is a large amount of heterotopic bone in the soft tissues posterior to the distal tibia and fibula. Lucent area between the tibia and talus has an appearance similar to the prior study. No change in the resumption about the intramedullary tibial erika. Severe atherosclerosis. IMPRESSION: Stable chronic degenerative and postsurgical changes. Electronically signed by Marciano Unger 10/17/2018 12:07 PM 10/17/18 1207 Interpreting Physician: Marciano Unger MD Dictated Date/Time: 10/17/18 1205 cc: Pipo Escalera MD; Robert Ness MD) - CONSULTS/PCP/HOSPITALIST Notification #1 *Consult/PCP/Hospitalist*: Dr. Ness Time Discussed: 14:41 Reason/Comments: Cellulitis Consult Disposition: Admit Departure - Departure Date of Disposition Decision: 10/17/18 Time of Disposition Decision: 14:41 DIAGNOSIS: Cellulitis Qualifiers: Site of cellulitis: extremity Site of cellulitis of extremity: lower extremity Laterality: left Qualified Code(s): L03.116 - Cellulitis of left lower limb Disposition: ADMITTED INPATIENT 09 Certified Medical Emergency: Emergent Condition: Stable Referrals and Follow-Ups: Robert eNss MD [Primary Care Provider] - - Critical Care Note This patient required my direct & personal management of CC.: No Attestation - Physician/ RAVI Attestation Patient care was provided by Advanced Practice Provider:: No The physician spent face to face time with patient:: Yes Advanced Practice Provider documentation review:: Supervising physician onsite and consulted in the evaluation and care of this patient. The physician did have a face to face encounter with the patient. This chart was documented by the indicated scribe, (Bernice Ribeiro Scribe) and accurately reflects the services I performed and decisions made by me, Pipo Escalera MD, as attested by the provider's signature.
[2018-10-17] MEDS: HUMULIN R SUBQ SCH (18:14)
[2018-10-17] MEDS: ULTRACET 37.5MG/325MG PO PRN (18:16)
[2018-10-17] MEDS: DILAUDID IV PRN (18:37)
[2018-10-17] MEDS ORDERED: CUBICIN 500 MG in NS 100 ML IV SCH (18:45)
[2018-10-17] MEDS ORDERED: SODIUM CHLORIDE 0.9% INJ SCH (18:45)
[2018-10-17] MEDS: NEXIUM IV SCH (18:51)
[2018-10-17] MEDS: LOVENOX SUBQ SCH (18:51)
--- NOTE | 2018-10-17 19:02 | HISTORY AND PHYSICAL ---
CHIEF COMPLAINT: Left leg swelling and pain. Not able to walk. HPI: He is a 47-year-old male diabetes, not taking insulin anymore, diet control since he has been on dialysis, discharged from the hospital on 08/17/2018. During the last admission patient was found to have penicillin resistant staph epi and initially thought it is coming from the left leg. Nevertheless, Dr. Landry reported it may be transient bacteremia from the AV graft. The patient was sent to Dr. Palumbo for IV daptomycin 700 mg 3 times a week postdialysis for 6 weeks and apparently it has been stopped a month ago. Now he started having left leg pain and swelling and he has extremely indurated and tender. He was not able to ambulate. As a result, he came to the hospital. In the ER, the patient was seen by Dr. Escalera who called me for admission. He had a left foot no changes ankle, mild chronic DJD and postsurgical changes and elevated sedimentation rate. Admitted to the hospital with IV antibiotics with daptomycin and Dr. Landry was consulted. Blood cultures were done. He had extensive workup done in the last admission in July. PAST MEDICAL HISTORY: 1. Diabetes off insulin, controlled with diet. He never followed up in my office. 2. History of penicillin resistance Staph epidermidis. 3. End-stage kidney disease on dialysis, history of epilepsy, hypertension, migraine headache, peripheral neuropathy, history of amputation of right great toe 3rd toe on the left with reconstructive surgeries on the left ankle by Dr. Stapleton. 4. Aortic valve sclerosis with moderate pulmonary hypertension. 5. Atypical chest pain. Stress test was negative. Ejection fraction 47%. AV graft in the left arm for dialysis. Gastroparesis. ALLERGIES: Not known. SOCIAL HISTORY: , 3 children, living in [place], disabled. No smoking, no alcohol. FAMILY HISTORY: Father of brain aneurysm at the age of 69. Mom is alive with complicated diabetes. MEDICATIONS: Depakote 1000 p.o. b.i.d., Zestril 40 daily, aspirin 81 mg daily, hydralazine 100 t.i.d., amitriptyline 10 at bedtime, Coreg 12.5 p.o. b.i.d., off insulin pump. HEALTH MAINTENANCE: Myocardial perfusion scan 08/11/2018, venous studies 08/11/1999 negative. Pneumococcal vaccine 23 on 2012. REVIEW OF SYSTEMS: HEENT: No headache, no vision problem, no earache. No sore throat. Neck: No goiter. No lymphadenopathy. No bruit. Cardiopulmonary: No chest pain, shortness of breath, PND, orthopnea. GI: No nausea, vomiting, abdominal pain. : No history of hesitancy, frequency, dysuria. Left leg is swelling and pain. Not able to ambulate. Neuro: Decreased sensory exam in both feet. History of seizures. No weakness. EXAMINATION: Temperature is 97.5 degrees, pulse 70, 6 feet 4, 245 pounds, blood pressure 160/93.HEENT: Within normal limits. Neck: Supple. No lymphadenopathy. Chest: Bilateral air entry. Heart: Sounds are regular. Belly: Is soft, nontender. Good bowel sounds. Left leg is obviously swollen, tender and with a lot of edema on the ankle. Left AV graft is functioning very well. Neuro: Decreased sensory exam, decreased pulses, not able to feel. INVESTIGATIONS: CBC. White cell count 6.3, hematocrit 26.8, platelets 199,000. Sodium 139, potassium 3.9, BUN 34, creatinine 8.2, glucose 212, alkaline phosphatase 254, CRP 93, sedimentation rate is 63. ASSESSMENT AND PLAN: 1. A 47-year-old male, insulin-dependent diabetes, neuropathy, elevated sedimentation rate, CRP, with left leg cellulitis with metal with a previous history of Staph epi and will continue IV daptomycin 7 mg after dialysis as per Dr. Tod Landry. 2. Consult with Dr. Landry. 3. End-stage kidney disease on dialysis. 4. Reconcile home medicines. 5. Diabetic gastroparesis, stable. 6. Diabetes off insulin pump. Check the A1c. Continue insulin sliding scale with coverage and based on Dr. Landry' further recommendations will be followed. cc: Artemio Ness MD
[2018-10-17] MEDS: ELAVIL PO SCH (20:38)
[2018-10-17] MEDS: DEPAKOTE PO SCH (20:38)
[2018-10-17] MEDS: COREG PO SCH (20:38)
[2018-10-17] MEDS: ASPIRIN PO SCH (20:38)
[2018-10-18] MEDS: DILAUDID IV PRN ×4 (00:36→21:31)
[2018-10-18] MEDS ORDERED: NS 2,000 ML MISC PRN (06:22)
[2018-10-18] MEDS ORDERED: TIGHT: 0.2 ML/HR FOR DIALYSIS MISC PRN (06:22)
[2018-10-18] MEDS ORDERED: HEPARIN IV PRN (06:22)
[2018-10-18] MEDS ORDERED: VANCOMYCIN 1 GM/NS 1 GM/250 ML IVPB IV SCH (07:45)
[2018-10-18] MEDS ORDERED: MAXIPIME 1 GM in NS 50 ML IV SCH (07:45)
[2018-10-18] MEDS ORDERED: SODIUM CHLORIDE 0.9% INJ PRN (07:49)
[2018-10-18] MEDS: PRINIVIL PO SCH ×2 (07:50→08:00)
[2018-10-18] MEDS: COREG PO SCH ×3 (07:51→21:32)
[2018-10-18] MEDS: DEPAKOTE PO SCH ×3 (07:51→21:32)
[2018-10-18 08:06] LABS: BASO# 0.05 X1000 (0.0-0.2); EOS# 0.23 X1000 (0.0-0.7); EOS% 4.8 % (0.0-10.0); HEMATOCRIT 25.7 % (42.0-52.0); HEMOGLOBIN 8.2 g/dL (14.0-18.0); LYMPH# 1.78 X1000 (1.2-3.4); LYMPH% 37.2 % (20.5-51.1); MCH 29.5 PG (27-31); MCHC 31.9 g/dL (33-37); MCV 92.4 FL (81-99); MONO# 0.38 X1000 (0.11-0.59); MONO% 7.9 % (1.7-9.3); MPV 9.6 FL (7.4-10.4); NEUT# 2.35 X1000 (1.4-6.5); NEUT% 49.1 % (42.2-75.2); PLT 183 X1000 (130-400); RBC 2.78 XMIL (4.7-6.1); RDW 13.9 % (11.5-14.5); WBC 4.79 X1000 (4.8-10.8)
--- NOTE | 2018-10-18 08:11 | INFECTIOUS DISEASE CONSULT REP ---
DATE: 10/18/2018 CONCLUSION: The patient has cellulitis of the left lower extremity which may be caused by the metal in his leg being infected while the patient was bacteremic with staph during his last admission. RECOMMENDATIONS: I have switched the patient from daptomycin to vancomycin and I have added cefepime. Also, I have ordered that the patient should have his legs elevated with the manual gatch continuously. DISCUSSION: The patient, approximately 2 weeks ago, started having swelling and pain of his left leg associated with fever. He has not had any nausea or vomiting, dysuria, or coughing. Laboratory studies show a CBC with a white count of 6380, hemoglobin 8.6, and platelet count 199,000. Creatinine is 8.2. GFR is 9. Blood cultures are pending. PAST MEDICAL HISTORY/REVIEW OF SYSTEMS: Eyes and Ears: He does not have any trouble seeing or hearing. Neck: No stiffness. Respiratory: No cough or shortness of breath. Cardiac: No chest pain or palpitations. : He rarely passes urine but he has not had dysuria. Bones, Joints, Muscles: The patient has swelling of both legs. This time, the left leg is more swollen than the right. Neurologic: No seizures. No loss of motor or sensory function. GI: No nausea, vomiting, or diarrhea. PREVIOUS HOSPITALIZATIONS AND OPERATIONS: A few months ago, he was in because of staphylococcus bacteremia. He has also had surgery on his brain for a brain abscess. He has had amputation of the right great toe and the left toe #3. He has had an AV fistula constructed in his left arm. The patient had metal rods placed on his legs. MEDICAL DISEASES: Positive for diabetes mellitus, hypertension, end-stage renal disease for which the patient is on hemodialysis. The patient also has hyperlipidemia. INFECTIOUS DISEASE HISTORY: Positive for brain abscess, pneumonia, bilateral foot infections, and staphylococcus bacteremia. FAMILY HISTORY: Positive for diabetes mellitus, hypertension, myocardial infarction, and stroke. SOCIAL HISTORY: [place] He is . He does not have any pets at home. He is disabled. He does not smoke cigarettes, drink alcoholic beverages, or abuse drugs. ALLERGIES: He does not have any drug allergies. HOME MEDICATIONS: The home medications include the following: Elavil, aspirin, carvedilol, Depakote, Apresoline, insulin, and lisinopril. PHYSICAL EXAMINATION: Vital Signs: Temperature is 97.6 degrees, pulse 66, respirations 14, blood pressure 145/85, patient weighs 248 pounds. General: This is an obese, middle- aged male. He is in no acute distress. Head, Eyes, Ears, Nose, and Throat: He can hear my spoken words and see near objects. He does not have any white coating on his tongue. Neck: No meningismus. Lungs: Clear to auscultation. Cardiovascular: Heart rate is regular. Abdomen: Soft and nontender. Extremities: The patient's left leg is more swollen than the right. It is tender. There is no drainage coming from it. As mentioned above, the patient has surgical absence of the right great toe and left toe #3. The patient has an AV fistula in the left arm. Neurologic: The patient is alert. He ambulates. Thank you for the consult. cc: MD Artemio Franco MD MTDD
[2018-10-18] MEDS: PHENERGAN IV PRN ×2 (08:31→17:59)
[2018-10-18 08:41] LABS: ALBUMIN 3.1 g/dL (3.5-5.0); C REACTIVE PROT QUANT 96.17 mg/L (0.00-5.00); CALCIUM 8.9 mg/dL (8.8-10.2); PHOSPHORUS 5.7 mg/dL (2.7-4.5); POTASSIUM 4.4 mmol/L (3.5-5.1)
[2018-10-18 08:42] LABS: HEMOGLOBIN A1C 5.5 % (4.8-6.0)
--- NOTE | 2018-10-18 09:06 | Diag Imaging Result Doc PS360 ---
EXAM: LOWER LEG-RIGHT INDICATION: osteomyelitis TECHNIQUE: 4 views COMPARISON: Right foot radiograph dated 02/11/2018 FINDINGS: Multiple metallic screws have been placed during the interval at the hindfoot and midfoot. As seen on the previous radiograph, there is evidence of severe Charcot arthropathy involving the foot. There is no discrete fracture, dislocation, or significant intrinsic osseous lesion involving the lower leg. No discrete bony erosion is identified.There is extensive atherosclerotic calcification involving the lower leg. The surrounding soft tissues are essentially unremarkable. IMPRESSION: No discrete radiographic evidence of osteomyelitis involving the tibia or fibula. Electronically signed by Jun Young 10/18/2018 9:04 AM
--- NOTE | 2018-10-18 09:14 | Diag Imaging Result Doc PS360 ---
EXAM: LOWER LEG-LEFT 10/18/2018 HISTORY: osteomyelitis TECHNIQUE: Left lower leg four views COMMENT: There is marked erosion of the ankle with complete destruction of the normal mortise and a intramedullary erika spanning the joint from the mid tibial shaft through the lower cortex of the calcaneus. There are also multiple rods present in the metatarsals extending into the area of the anterior calcaneus. There is extensive arterial calcification. There is ankylosis of the distal fibula with the tibia and heterotopic bone formation is seen around the ankle joint. Compared to the previous foot radiographs of 10/17/2018 there has been no appreciable change. The tibia and fibula are otherwise intact proximally. Compared to 08/10/2018 there has been increase in lucency around the intramedullary erika particularly proximally. There is also apparent greater resorption of bone around the outer portion of the screw securing the erika in the distal tibia. IMPRESSION: Increasing resorption of bone around the intramedullary erika and other hardware may be indicative of chronic osteomyelitis. Electronically signed by Tom Waddell 10/18/2018 9:11 AM
[2018-10-18] MEDS: APRESOLINE PO SCH ×3 (10:34→17:49)
--- NOTE | 2018-10-18 13:04 | INFECTIOUS DISEASE CONSULT REP ---
DATE: 10/18/2018 ADDENDUM: I am ordering x-rays and a triple-phase bone scan from the feet to the knees of both legs. cc: MD Artemio Franco MD
[2018-10-18] MEDS: HUMULIN R SUBQ SCH ×4 (15:10→21:39)
--- NOTE | 2018-10-18 15:31 | NEPHROLOGY PROGRESS NOTE ---
DATE: 10/18/2018 TIME SEEN: 0700 REASON FOR ADMISSION: Inability to walk on left leg associated with pain. REASON FOR CONSULT: ESRD with assistance with medical management. CONSULTING PHYSICIAN: Dr. Ness HISTORY OF PRESENT ILLNESS: This is a 47-year-old male who has end-stage renal disease, known to our outpatient dialysis for Thursday, Thursday, Thursday. Patient presented to the hospital recently on 08/17/2018. At that time, he was found to have penicillin resistant Staphylococcus epidermidis into the left leg. Dr. Landry had felt that he needed daptomycin. This was unobtainable at our clinic. The patient was given vancomycin for approximately 6 weeks and has been off for approximately 3 to 4 weeks. He now presents with left leg pain, left foot swelling, indurated, and tender. Unable to ambulate. In the ER, it was noted that his sedimentation rate was elevated. He went ahead and was given a dose of antibiotics and was admitted to Dr. Landry' and Dr. Ness's Care. Blood cultures were done. Extensive workup continues with Dr. Stapleton consulted. The patient currently denies chest pain or increased work of breathing. No nausea, vomiting, no diarrhea. Inability to walk. Left lower extremity swollen and tender. No recent falls or injury to the left leg noted. Recent pinning and repair to the left foot in 2018 with hardware intact. No fever or chills. PAST MEDICAL HISTORY: End-stage renal disease with hemodialysis on Thursday, Thursday, Thursday at the [facility], diabetes mellitus type 2 now diet-controlled off insulin, history of penicillin-resistant Staphylococcus epidermidis and admission of 08/17/2018, aortic valve sclerosis with moderate pulmonary hypertension, atypical chest pain and stress test was negative with an ejection fraction 47%, AV graft to the left arm currently with dialysis, anemia of chronic disease, osteodystrophy of chronic disease. SOCIAL HISTORY: He is . He has 3 children. Lives in [place]. Disabled. Denies any alcohol, tobacco, or illicit drug use. FAMILY HISTORY: Father of brain aneurysm at the age of 69. Mother with complications of diabetes. She is alive. ALLERGIES: No known drug allergies listed. MEDICATIONS: Depakote, Zestril, hydralazine, amitriptyline, Coreg. REVIEW OF SYSTEMS: Times 10 with pertinent positives listed above in the HPI. OBJECTIVE: His most recent vital signs: Temperature 97.6 degrees, blood pressure 145/85, heart rate 66, respirations are 14, he is on room, air last recorded saturation 98%. Intake and Output: He has had 1802 in. He has had 0 recorded out with need for dialysis. LABORATORY DATA: Sodium is 128, potassium 4.4, chloride 90, CO2 of 20, BUN 39, creatinine 9, glucose 132, patient's anion gap is 18, calcium 8.9, phosphorus 5.7, albumin 3.1. He has a C- reactive protein of 96.17. Hemoglobin 8.2, hematocrit 25.7, white count 4.79 with a platelet count of 183,000. PHYSICAL EXAMINATION: General: This is a 47-year-old male. He is resting quietly in bed. He appears chronically ill, no acute distress. Skin: Warm and dry. HEENT: Normocephalic, atraumatic. Conjunctivae pale pink. He has MILEY. Mucous membranes are dry. Neck: Supple. Trachea midline. No evidence of JVD. Cardiovascular: He has regular rate and rhythm. He has a systolic murmur present. Lungs: Clear to auscultation bilaterally. Equal excursion on room air. Abdomen: Soft, nontender. Positive bowel sounds. Genitourinary: Not inspected. Minimal void with dialysis assist. Extremities: Have 2 to 3+ edema to the left lower leg and foot, 1+ to the right. Diminished pulse to the left greater than right. He has a fistula to the left upper arm with good palpable thrill. Neurological: Alert and oriented x3. ASSESSMENT AND PLAN: 1. Chronic kidney disease, stage 5D. The patient is due for his routine dialysis treatment today. We will place him on a 2 K bath. He is to dialyze for 3-1/2 hours. We will attempt to pull patient to his outpatient dry weight. 2. Electrolytes and acid-base balance. The patient is hyponatremic secondary to his end-stage renal disease with correction on dialysis. 3. Anemia. This remains low. 4. Swelling to left lower extremity. The patient has been started on vancomycin. This is to be followed by Dr. oTd Landry and the primary care. The patient also has elevated sedimentation rate and CRP. I would like to thank you for allowing us to follow with this patient. Dictated by KATHY Quevedo for Parviz Palumbo MD Face to face encounter, data reviewed, discussed with Karin Velez on 10/18/18. I agree with the above assessment and plan of care. cc: KATHY Quevedo MD Jagan Reddy, MD [facility]
[2018-10-18] MEDS ORDERED: MAXIPIME 1 GM in NS 50 ML IV ONE (17:00)
[2018-10-18] MEDS: NEXIUM IV SCH (17:49)
[2018-10-18] MEDS: LOVENOX SUBQ SCH (17:49)
--- NOTE | 2018-10-18 17:55 | Diag Imaging Result Doc PS360 ---
EXAM: 3 PHASE BONE SCAN 10/18/2018 HISTORY: osteomyelitis TECHNIQUE: 28.9 mCi of technetium 99m MDP and three phase scanning over the ankles and feet. COMMENT: There is marked hyperemia in the left lower leg and foot compared to the right. There is increased static bone activity in the tibia and particularly around the ankle mortise tarsal region and tarsometatarsal region on the left. There is relatively less increased uptake at the level of the mid tibial shaft. IMPRESSION: The possibility of osteomyelitis in the area of the ankle joint and tarsal region cannot be excluded. Electronically signed by Tom Waddell 10/18/2018 5:52 PM
[2018-10-18] MEDS ORDERED: VANCOMYCIN 1 GM/NS 1 GM/250 ML IVPB IV ONE (18:00)
[2018-10-18] MEDS: ASPIRIN PO SCH (21:32)
[2018-10-18] MEDS: ELAVIL PO SCH (21:32)
--- NOTE | 2018-10-18 21:50 | PROGRESS NOTE ---
DATE: 10/18/2018 SUBJECTIVE: Patient is off insulin. Will monitor blood sugars. Complains of leg pain. Appreciated Dr. Landry' consult. He has been scheduled for bone scan, going for dialysis today. OBJECTIVE: Vital Signs: On examination, temperature is 97 degrees, pulse 65, weight 245 pounds, blood pressure is 154/84. HEENT: Exam within normal limits. Neck: Supple. Chest: Clear. Heart: Sounds are regular. Abdomen: Belly is soft, nontender. Good bowel sounds. Extremities: Left leg is diffusely swollen and darkly pigmented. INVESTIGATIONS: White cell count 4.7, hematocrit 25.7, platelet count 183,000. Sedimentation rate was 60. Sodium 128, potassium 4.4, chloride 90, BUN 39, creatinine 9.0, glucose 132, A1c 5.5. CRP was high. Arterial flow studies are pending. ASSESSMENT AND PLAN: 1. End-stage kidney disease, on dialysis. 2. Type 2 diabetes, insulin dependent, off insulin pump, controlled with diet. Hemoglobin A1c is normal. He has been off insulin pump. 3. Left leg cellulitis. Rule out osteomyelitis in light of elevated sedimentation rate and CRP, and going for bone scan. Based on that, further recommendations will be followed. Currently, he is started on Maxipime and vancomycin. 4. Deep vein thrombosis and gastrointestinal prophylaxis as per order sheet. 5. Seizures, on Depakote. 6. Hypertension, stable on Coreg and Hydralazine. 7. History of peripheral neuropathy, stable. I discussed vascular lab. We will also get the arterial flow studies and check the ankle-brachial index. LEVEL OF DOCUMENTATION: 25 minutes. cc: Artemio Ness MD MTDD
[2018-10-19] MEDS: PHENERGAN IV PRN ×3 (02:55→16:33)
[2018-10-19] MEDS: DILAUDID IV PRN ×4 (03:23→21:29)
[2018-10-19] MEDS ORDERED: NITROGLYCERIN SL ONE (05:51)
--- NOTE | 2018-10-19 06:02 | EKG Report ---
Test Performed on : 10/19/2018 05:57:23 AM Test Reason : Chest pain Blood Pressure : / mmHG Vent. Rate : 071 BPM Atrial Rate : 071 BPM P-R Int : 172 ms QRS Dur : 098 ms QT Int : 430 ms P-R-T Axes : 033 030 127 degrees QTc Int : 467 ms Normal sinus rhythm. T wave abnormality, consider lateral ischemia Prolonged QT Abnormal ECG When compared with ECG of 08-AUG-2018 20:23, T wave inversion more evident in Lateral leads Confirmed by Amando Mack MD ([id number]) on 10/24/2018 9:27:18 PM
[2018-10-19] MEDS: HUMULIN R SUBQ SCH ×3 (06:07→21:27)
[2018-10-19 07:25] LABS: ALBUMIN 2.9 g/dL (3.5-5.0); CALCIUM 8.8 mg/dL (8.8-10.2); PHOSPHORUS 5.2 mg/dL (2.7-4.5); POTASSIUM 4.9 mmol/L (3.5-5.1)
[2018-10-19 07:27] LABS: CREATININE 7.1 mg/dL (0.7-1.2)
[2018-10-19 07:35] LABS: BASO# 0.09 X1000 (0.0-0.2); EOS# 0.27 X1000 (0.0-0.7); EOS% 5.9 % (0.0-10.0); HEMATOCRIT 28.5 % (42.0-52.0); HEMOGLOBIN 8.9 g/dL (14.0-18.0); LYMPH# 1.34 X1000 (1.2-3.4); LYMPH% 29.1 % (20.5-51.1); MCH 30.4 PG (27-31); MCHC 31.2 g/dL (33-37); MCV 97.3 FL (81-99); MONO# 0.34 X1000 (0.11-0.59); MONO% 7.4 % (1.7-9.3); MPV 9.8 FL (7.4-10.4); NEUT# 2.56 X1000 (1.4-6.5); NEUT% 55.6 % (42.2-75.2); PLT 224 X1000 (130-400); RBC 2.93 XMIL (4.7-6.1); RDW 14.7 % (11.5-14.5)
[2018-10-19] MEDS: APRESOLINE PO SCH ×3 (09:57→16:32)
[2018-10-19] MEDS: DEPAKOTE PO SCH ×2 (09:57→21:29)
[2018-10-19] MEDS: COREG PO SCH ×2 (09:57→21:29)
[2018-10-19] MEDS: PRINIVIL PO SCH (09:57)
--- NOTE | 2018-10-19 12:24 | NEPHROLOGY PROGRESS NOTE ---
DATE: 10/19/2018 TIME SEEN: 0655 SUBJECTIVE: Mr. Toussaint is resting quietly in bed. He has complaints of decreased appetite, recent weight loss, and complains of some anxiety with depression. OBJECTIVE: His most recent vital signs: Temperature 97.3 degrees, blood pressure 142/79, heart rate 73, respirations 20, he is on room air last with last recorded saturation 94%. Intake and Output: 1200 in, 6 L removed on dialysis. LABORATORY DATA: Sodium 132, potassium 4.9, chloride 94, CO2 of 19, BUN 36, creatinine 7.1, glucose 139, anion gap of 19, calcium 8.8, phosphorus 5.2, albumin 2.9. White count 4.6, hemoglobin 8.9, hematocrit 28.5, platelet count 224,000. PHYSICAL EXAMINATION: General: This is a 47-year-old male. He is currently resting quietly in bed. He appears chronically ill, though no acute distress. Skin: Warm and dry. HEENT: Normocephalic, atraumatic. Conjunctiva is pale. He has MILEY. Mucous membranes are dry. Neck: Supple. Trachea midline. No evidence of JVD. Cardiovascular: Regular rate and rhythm. He has a soft systolic murmur present. Lungs: Clear to auscultation bilaterally with equal excursion on room air. Abdomen: Soft, nontender. Positive bowel sounds. Genitourinary: Not inspected. Minimal void with dialysis assist. Extremities: Have 2+ lower extremity edema to the left, 1+ on the right. Diminished pulse on the left. Right is greater. Pulse palpable. Fistula to the left upper arm with good palpable thrill. Neurological: Alert and oriented x3. ASSESSMENT AND PLAN: 1. Chronic kidney disease, stage 5D. Patient had dialysis yesterday. Tolerated this well. 6 L removal. No indications for intervention today. 2. Electrolytes and acid-base balance. Hyponatremia secondary to end-stage renal disease. These are stable. 3. Anemia remains low but stable. 4. Left lower leg swelling to the left lower extremity continues. The patient is on vancomycin and followed by Dr. Landry. We will attempt to talk with Dr. Stapleton in regards to cellulitis to the left lower extremity. The patient has metal to the left leg and foot. 4. Depression with decreased appetite. We will start patient on Remeron. I would like to thank you for allowing us to follow with this patient. Dictated by KATHY Quevedo for Parviz Palumbo MD Face to face encounter, data reviewed, discussed with Karin Velez on 10/19/18. I agree with the above assessment and plan of care. cc: KATHY Quevedo MD Jagan Reddy, MD [facility]OSPITALRoberta
--- NOTE | 2018-10-19 14:26 | CONSULTATION ---
DATE OF CONSULTATION: 10/19/2018 Mr Murali Toussaint, , is a 47-year-old black male, who has had previous ankle and foot surgery per Dr Stapleton. He has persistent swelling and what is felt to be osteomyelitis of his left foot and ankle, and we were asked to evaluate him for possible amputation. He is a patient of Dr. CARROLL Ness. PAST MEDICAL HISTORY: Diabetes, history of MRSA, end-stage renal disease, epilepsy, hypertension, migraine headache, peripheral neuropathy, a history of right great toe amputation, multiple surgeries of left ankle per Dr. Stapleton, aortic valve sclerosis with moderate pulmonary hypertension, atypical chest pain. ALLERGIES: No known drug allergies. MEDICATIONS: Depakote, Zestril, aspirin, hydralazine, amitriptyline. SOCIAL HISTORY: He is and has 3 children. Lives in [place]. He is disabled. FAMILY HISTORY: Father of brain aneurysm at age 69. Mom is alive with diabetes. REVIEW OF SYSTEMS: A 14 point review of systems was performed, and except for this left ankle, it is essentially nothing new. PHYSICAL EXAMINATION: On exam Mr. Toussaint is a strong middle-aged black male, no acute distress. HEENT: No jaundice. No oral lesions. Satisfactory dentition. No cervical or supraclavicular lymphadenopathy. His heart has a regular rate. Lungs are clear to auscultation and percussion bilaterally. He has an AV fistula in place, left arm, placed per Dr. Dugan. His left lower extremity is swollen. Right lower extremity is not. He appears to have adequate blood supply to both lower extremities. I have reviewed the bone scan with our radiologist, and of course, it is positive left ankle; it would be with all the orthopedic work that he has had. Dr Landry has been consulted. Arterial flow studies are being performed. Plain films suggest possible osteomyelitis. I spoke with him about a left [id number] amputation because of chronic osteomyelitis, left foot chronic swelling status post orthopedic reconstruction per Dr Stapleton. He is on IV antibiotics. I will speak with Dr Stapleton, and I spoke with the patient about left [id number] amputation. He is due dialysis tomorrow. cc: MD Artemio Bonds MD
--- NOTE | 2018-10-19 14:45 | INFECTIOUS DISEASE PROGRESS NO ---
DATE: 10/19/2018 PRESENT ILLNESS: Mr. Toussaint is being treated for a left lower extremity chronic osteomyelitis as seen on x-ray and bone scan. MEDICATIONS: Yesterday he was started on vancomycin 1 g IV and cefepime 1 g IV after each dialysis treatment. PHYSICAL EXAMINATION: Vital Signs: Temperature is 97.8 degrees, pulse rate 73, respiratory rate 18, blood pressure 143/79, O2 saturation 98% on room air. General: This is a chronically ill- appearing, middle-aged gentleman. He is lying in the bed, currently in no acute distress. HEENT: Atraumatic, normocephalic. Oral mucous membranes are pink and moist. Conjunctivae are pale. Neck: Supple. Trachea is midline. Cardiovascular: Heart rate is regular. A systolic murmur noted. Respiratory: Lung sounds are clear to auscultation bilaterally. No work of breathing is noted. Abdomen: Soft, round, and nontender. Bowel sounds are active. Integumentary: Skin is warm and dry. There is an AV fistula noted to the left upper arm with a good thrill and bruit. The left lower extremity is swollen and tender. No open areas of skin noted. Neurologic: He is awake, alert, oriented, and able to move around in the bed independently. LABORATORY AND X-RAY: Today, his white count is 4.6 hemoglobin 8.9, platelet count 224,000. Creatinine is 7.1, GFR 10. Creatine kinase is 45. Blood cultures have shown no growth since admission. The x-ray done to his right lower extremity showed no evidence of osteomyelitis. The x-ray of the left lower extremity showed bone resorption around the hardware indicative of chronic osteomyelitis. The bone scan done yesterday showed the possibility of osteomyelitis in the ankle joint and tarsal region. ASSESSMENT AND PLAN: Mr. Toussaint has a chronic left lower extremity osteomyelitis. Dr. Constantino have been consulted. I believe it was Dr. Stapleton who did his original surgery with the hardware to that left leg. He is receiving vancomycin and cefepime after each dialysis treatment, which we will continue. He needs 6 to 8 weeks of treatment for the osteomyelitis. In the meantime, we will await input from the surgeons. These plans have been discussed with and recommended by Dr. Landry. COMORBIDITIES: Comorbidities for Mr. Toussaint include chronic kidney disease with hemodialysis, diabetes mellitus and depression. Dictated by KATHY Gonzalez for Tod Landry MD cc: MD Artemio Franco MD [facility]
--- NOTE | 2018-10-19 14:46 | VASCULAR LAB ---
PROCEDURE NAME: Arterial Bilateral Legs - 10/17/2018 [employer]OM[employer]IVE [employer]ILER[employer]KER: Edis REQUESTING PHYSICIAN: Dr. Ness INDICATION: PAD, diabetes, hypertension, history of toe amputation. FINDINGS: Brachial on the right is 181. On the left, he has a brachial fistula. High thigh on the right noncompressible, left noncompressible. Low thigh on the right is noncompressible, left noncompressible. Calf on the right is noncompressible, left noncompressible. DP on the right is 232, on the left noncompressible. PT on the right is noncompressible, left noncompressible. Right great toe amputation. On the left, toe to brachial index is 0.3. SUMMARY: There is pulsatile flow noted to the level of the toe bilaterally, with the exception of the right foot that has a surgically absent toe. However, there is noncompressibility of the arteries which would suggest some degree of calcific disease. Recommend correlation with angiography as indicated. cc: MD Artemio Mcclendon MD
[2018-10-19] MEDS: LOVENOX SUBQ SCH (18:23)
[2018-10-19] MEDS: PROTONIX IV SCH (18:24)
[2018-10-19] MEDS: ELAVIL PO SCH (21:29)
[2018-10-19] MEDS: REMERON PO SCH (21:29)
[2018-10-19] MEDS: ASPIRIN PO SCH (21:29)
--- NOTE | 2018-10-19 21:36 | PROGRESS NOTE ---
DATE: 10/19/2018 SUBJECTIVE: A 47-year-old male with left leg cellulitis and pain, metallic erika, elevated sedimentation rate and CRP. Blood flow studies were done. It reported noncompressible disease due to hardening. Left toe brachial index is very low, 0.3. Bone scan also showed significant osteomyelitis. ASSESSMENT AND PLAN: 1. Diabetes, stable. A1c 5.5. 2. Left leg cellulitis, with bone involvement, with poor circulation. Dr. Landry recommended he is not amenable for long-term intravenous antibiotics due to inside the metal, and is very detrimental for bacteremia in the future. Recommendation is below-knee amputation. Discussed with the patient. Surgical consult. 3. End-stage kidney disease, on dialysis through the left arteriovenous graft as per Dr. Palumbo, and currently he has been on intravenous vancomycin after dialysis and cefepime. 4. Patient wants to discuss with his about the amputation and discussed with Dr. Hernandez. I appreciated his consult. LEVEL OF DOCUMENTATION: 25 minutes. cc: Artemio Ness MD
[2018-10-20] MEDS: ULTRACET 37.5MG/325MG PO PRN (00:13)
[2018-10-20] MEDS: HUMULIN R SUBQ SCH ×2 (06:16→23:21)
[2018-10-20] MEDS: DILAUDID IV PRN ×3 (06:17→23:21)
[2018-10-20] MEDS: PHENERGAN IV PRN ×3 (06:17→17:45)
[2018-10-20] MEDS ORDERED: NS 2,000 ML MISC PRN (06:24)
[2018-10-20] MEDS ORDERED: TIGHT: 0.2 ML/HR FOR DIALYSIS MISC PRN (06:24)
[2018-10-20] MEDS ORDERED: HEPARIN IV PRN (06:24)
--- NOTE | 2018-10-20 08:06 | ORTHOPAEDICS PROGRESS NOTE ---
DATE: 10/20/2018 SUBJECTIVE: Mr. Toussaint is a patient well known to my service. He has had bilateral lower extremity Charcot reconstructions. Unfortunately, on his left side over the past several days, he has started getting a lot of swelling. He was admitted to the hospital, and Orthopedics has been consulted to evaluate this left leg. OBJECTIVE: Left lower extremity exam, he has massive swelling to the left lower extremity. I do not see any definite ulcers or open areas. He does not have a lot of stability though when trying to do range of motion of his foot and ankle. IMAGING: Radiographs of the foot and the ankle were reviewed, which show loosening of all the hardware. There is hardware throughout his midfoot, and there is a TTC nail, and all of it appears to have loosening around the implants. ASSESSMENT: 1. Left foot Charcot, status post reconstruction. 2. Possible left foot osteomyelitis. PLAN: I discussed with Mr. Toussaint about his foot. It looks like all of his hardware is beginning to loosen at this point. This is different from his previous exams when I have seen him in the clinic, and he has developed a lot of swelling in this left lower extremity. I did discuss with him the possibility of it being infected as well down the leg. Given the fact that he may be infected and given the fact that all the hardware is loosening and this is a really bad Charcot deformity, I think it would be reasonable at this point to consider a left bishc-vfq-euvb amputation. I did discuss this with him, and he was understanding and willing to proceed as well. I will talk with Dr. Hernandez and his team today so they can get everything scheduled. cc: MD Artemio Elias MD
[2018-10-20 08:39] LABS: EOS% 6.6 % (0.0-10.0); HEMATOCRIT 29.4 % (42.0-52.0); HEMOGLOBIN 9.3 g/dL (14.0-18.0); LYMPH% 36.7 % (20.5-51.1); MCH 29.5 PG (27-31); MCHC 31.6 g/dL (33-37); MCV 93.3 FL (81-99); MONO% 6.3 % (1.7-9.3); MPV 9.3 FL (7.4-10.4); NEUT% 49.7 % (42.2-75.2); PLT 240 X1000 (130-400); RBC 3.15 XMIL (4.7-6.1); RDW 14.4 % (11.5-14.5); WBC 4.11 X1000 (4.8-10.8)
[2018-10-20 08:40] LABS: BASO# 0.03 X1000 (0.0-0.2); BASO% 0.7 % (0.0-0.8); EOS# 0.27 X1000 (0.0-0.7); LYMPH# 1.51 X1000 (1.2-3.4); MONO# 0.26 X1000 (0.11-0.59); NEUT# 2.04 X1000 (1.4-6.5)
--- NOTE | 2018-10-20 08:58 | NEPHROLOGY PROGRESS NOTE ---
DATE: 10/20/2018 DATE AND TIME SEEN: 10/20/2018 at 0645. SUBJECTIVE: Mr. Toussaint is resting in bed. States that he cannot get control of his pain, which is causing chronic nausea. OBJECTIVE: VITAL SIGNS: Temperature 98.1 degrees, blood pressure 120/59, heart rate 70, respirations 18. He is on room air, last recorded saturation 97%. He has had 1482 in, 0 out with need for dialysis. LABORATORY DATA: These are currently pending. Previous potassium of 4.9. Previous hemoglobin 8.9. PHYSICAL EXAMINATION: General: This is a 47-year-old male. He is resting quietly in bed. He appears chronically ill. No acute distress. Skin: Warm and dry. HEENT: Normocephalic, atraumatic. Conjunctivae pale. He has MILEY. Mucous membranes are dry. Neck: Supple. Trachea midline. No JVD. Cardiovascular: Regular rate and rhythm. He does have a soft systolic murmur. Lungs: Clear to auscultation bilaterally. Equal excursion on room air. Abdomen: Soft, nontender. Positive bowel sounds. Genitourinary: Not inspected. Minimal void with dialysis assist. Extremities: Continues with 2+ lower extremity edema on the left, 1+ on the right. Diminished pulses to the left. Fistula to the left upper arm with good palpable thrill. Neurological: Alert and oriented x3. ASSESSMENT AND PLAN: 1. Chronic kidney disease stage 5D. The patient is due for his routine dialysis treatment today. We will place him on a 2 K bath. He is to dialyze for 3.5 hours. We will attempt to pull him to his outpatient dry weight. 2. Electrolytes and acid-base balance. These are currently pending. These have been stable during his treatment with correction on dialysis. 3. Anemia. This remains low but stable. 4. Left lower leg swelling. This continues. Dr. Stapleton has been consulted. He remains on vancomycin per Dr. Landry. 5. Depression. He continues now on Remeron. 6. Pain with nausea. We will increase his Phenergan to 25 mg q.6 hours alternating every 3 hours with his Dilaudid ordered per Dr. Ness in an attempt to get some control of his pain and discomfort. I would like to thank you for allowing us to follow with this patient. Dictated by KATHY Quevedo for Parviz Palumbo MD Face to face encounter, data reviewed, discussed with Karin Velez on 10/20/18. I agree with the above assessment and plan of care. cc: KATHY Quevedo MD Jagan Reddy, MD [facility]OSPITALRoberta
[2018-10-20 09:26] LABS: ALBUMIN 3.3 g/dL (3.5-5.0); CALCIUM 8.6 mg/dL (8.8-10.2); CREATININE 9.4 mg/dL (0.7-1.2); PHOSPHORUS 5.8 mg/dL (2.7-4.5); POTASSIUM 4.1 mmol/L (3.5-5.1)
[2018-10-20] MEDS: APRESOLINE PO SCH ×3 (14:46→17:43)
[2018-10-20] MEDS: COREG PO SCH ×2 (14:47→23:20)
[2018-10-20] MEDS: DEPAKOTE PO SCH ×2 (14:48→23:20)
[2018-10-20] MEDS: PRINIVIL PO SCH (14:57)
--- NOTE | 2018-10-20 15:12 | INFECTIOUS DISEASE PROGRESS NO ---
DATE: 10/20/2018 PRESENT ILLNESS: Mr. Toussaint has a left lower extremity chronic osteomyelitis. At this point, it looks as though he will be having a left qjmpk-nsd-mygo amputation done tomorrow by Dr. Stapleton. MEDICATIONS: He is receiving vancomycin 1 g IV and cefepime 1 g IV after each dialysis treatment. PHYSICAL EXAMINATION: Vital Signs: Temperature is 97.9 degrees, pulse rate 72, respiratory rate 16, blood pressure 155/78, O2 saturation is 98% on room air. General: This is a chronically ill- appearing, middle-aged gentleman. He is lying in the bed, currently in no acute distress. HEENT: Atraumatic, normocephalic. Oral mucous membranes are pink and moist. Conjunctivae are pale. Neck: Supple. Trachea is midline. Respiratory: Lung sounds are clear to auscultation bilaterally. No work of breathing is noted. Cardiovascular: Heart rate is regular with a systolic murmur noted. Abdomen: Soft, round, nontender. Bowel sounds are active. Neurologic: He is awake, alert, oriented, and can move around in bed independently. Integumentary: Skin is generally warm and dry.There is an AV fistula in place to the left upper arm with a good thrill and bruit. The left lower extremity is swollen with Charcot foot; no open areas of skin noted. LABORATORY AND X-RAY: Today his white count is 4.11, hemoglobin 9.3, platelet count 240,000. Creatinine is 9.4. GFR 7. IMAGING: No imaging reports today. ASSESSMENT AND PLAN: Mr. Toussaint has chronic left lower extremity osteomyelitis. He was seen by Dr. Stapleton this morning, and the tentative plan is for him to have a left rhbty-uek-pulq amputation tomorrow, according to the patient. He is receiving vancomycin and cefepime IV after each dialysis treatment, which we will continue. These plans have been discussed with and recommended by Dr. Landry. COMORBIDITIES: Include diabetes mellitus, depression and chronic kidney disease with hemodialysis. Dictated by KATHY Gonzalez for Tod Landry MD cc: MD Artemio Franco MD MTDD
[2018-10-20] MEDS: PROTONIX IV SCH (17:44)
[2018-10-20] MEDS: SODIUM CHLORIDE 0.9% INJ SCH (17:47)
[2018-10-20] MEDS: LOVENOX SUBQ SCH (17:48)
--- NOTE | 2018-10-20 21:12 | PROGRESS NOTE ---
DATE: 10/20/2018 SUBJECTIVE: The patient is in good spirits, going for dialysis today. I spoke to him about the left leg and definitely he needs amputation. The question is AKA versus BKA. I spoke to Dr. Hernandez, and he also has a PAD and neuropathy. Dr. Hernandez will decide based on the arterial flow studies. OBJECTIVE: Vital signs: Temperature is 97 degrees, pulse 68. Vitals are stable. HEENT Exam: Within normal limits. Neck: Supple. No lymphadenopathy. Chest: Bilateral air entry. Cardiovascular: Heart sounds are regular. Abdomen: Belly is soft, nontender. Blood cultures are negative. ASSESSMENT AND PLAN: 1. Left leg osteomyelitis, not amenable for long-term IV antibiotics. Decided amputation tomorrow. 2. End-stage kidney disease on dialysis today. 3. Diabetes is stable. 4. Appreciated consultants. The patient has agreed for the procedure. I did communicate with Dr. Hernandez making the arrangements. LEVEL OF DOCUMENTATION: 25 minutes. cc: Artemio Ness MD
[2018-10-20] MEDS: ELAVIL PO SCH (23:20)
[2018-10-20] MEDS: ASPIRIN PO SCH (23:20)
[2018-10-20] MEDS: REMERON PO SCH (23:20)
[2018-10-21] MEDS: PHENERGAN IV PRN ×2 (03:50→17:01)
[2018-10-21] MEDS: HUMULIN R SUBQ SCH ×6 (06:22→20:06)
[2018-10-21] MEDS: DILAUDID IV PRN (06:38)
[2018-10-21] MEDS: APRESOLINE PO SCH ×3 (08:50→17:09)
[2018-10-21] MEDS: DEPAKOTE PO SCH ×2 (08:51→20:13)
[2018-10-21] MEDS: PRINIVIL PO SCH (08:51)
[2018-10-21] MEDS: COREG PO SCH ×2 (08:51→20:14)
[2018-10-21 09:08] LABS: ALBUMIN 3.1 g/dL (3.5-5.0); CALCIUM 8.7 mg/dL (8.8-10.2); PHOSPHORUS 4.8 mg/dL (2.7-4.5); POTASSIUM 3.7 mmol/L (3.5-5.1)
[2018-10-21 09:11] LABS: CREATININE 6.5 mg/dL (0.7-1.2)
[2018-10-21] MEDS ORDERED: DIPRIVAN 1% ONE (11:26)
[2018-10-21] MEDS ORDERED: XYLOCAINE-MPF 2% ONE (11:26)
[2018-10-21] MEDS ORDERED: SUFENTA ONE (11:58)
[2018-10-21] MEDS ORDERED: MAXIPIME 1 GM in NS 50 ML IV ONE (12:30)
[2018-10-21] MEDS ORDERED: VANCOMYCIN 1 GM/NS 1 GM/250 ML IVPB IV ONE (12:30)
--- NOTE | 2018-10-21 13:11 | NEPHROLOGY PROGRESS NOTE ---
DATE: 10/21/2018 TIME SEEN: 0655. SUBJECTIVE: Mr. Toussaint is resting quietly in bed. He is n.p.o. He is scheduled for surgery on his left leg and foot. LABORATORY DATA: Sodium 132, potassium 3.7, chloride 93, CO2 of 25, BUN 45, creatinine 6.5, glucose 125, anion gap is 14, calcium 8.7. Phosphorus 4.8. Albumin 3.1. The patient had a previous hemoglobin of 9.3. OBJECTIVE: Vital Signs: Temperature 98.2 degrees, blood pressure 165/85, heart rate 77, respirations 16. He is on room air. Last recorded saturation 100%. He has had 600 in, 6 L out. General: This is a 47-year-old male, resting quietly in bed. He appears chronically ill. No acute distress. Skin: Warm and dry. HEENT: Normocephalic, atraumatic. Conjunctiva is pale pink. He has MILEY. Mucous membranes are dry. Neck: Supple. Trachea midline. No evidence of JVD. Cardiovascular: Regular rate and rhythm without gallop. Soft systolic murmur present. Lungs: Clear to auscultation bilaterally. Equal excursion on room air. Abdomen: Large, round, soft, nontender. Positive bowel sounds. Genitourinary: Not inspected. Minimal void with dialysis assist. Extremities: Continues with 2+ edema on the left, 1+ on the right. Diminished pulse to the left. Fistula to the left upper arm with good palpable thrill. Neurological: Alert and oriented x3. ASSESSMENT AND PLAN: 1. Chronic kidney disease stage 5D. The patient tolerated dialysis yesterday. We will plan for dialysis in the morning. 2. Electrolytes and acid-base balance. These are stable with dialysis correction. 3. Anemia. This is low, but stable. 4. Left lower leg swelling with Dr. Stapleton following. The patient has been referred to Dr. Hernandez for possible left below-knee amputation. I would like to thank you for allowing us to follow with this patient. Dictated by KATHY Quevedo for Parviz Palumbo MD Face to face encounter, data reviewed, discussed with Karin Velez on 10/21/18. I agree with the above assessment and plan of care. cc: Jo KATHY Mata MD Jagan Reddy, MD MTDD
[2018-10-21] MEDS ORDERED: D5 1/2 NS 1,000 ML ONE (15:46)
[2018-10-21] MEDS ORDERED: D5 1/2 NS 1,000 ML IV SCH (16:00)
[2018-10-21] MEDS: MORPHINE IV PRN (17:00)
[2018-10-21] MEDS: PROTONIX IV SCH ×2 (17:12→18:13)
[2018-10-21] MEDS: SODIUM CHLORIDE 0.9% INJ PRN (17:19)
[2018-10-21] MEDS: LOVENOX SUBQ SCH (18:13)
--- NOTE | 2018-10-21 19:59 | OPERATIVE NOTE ---
PROCEDURE DATE: 10/21/2018 PREOPERATIVE DIAGNOSES: 1. Osteomyelitis left foot. 2. Infected orthopedic hardware left foot and leg. POSTOPERATIVE DIAGNOSES: 1. Osteomyelitis left foot. 2. Infected orthopedic hardware left foot and leg. PRINCIPAL PROCEDURE: Left below the knee amputation. SURGEON: Radha Hernandez MD. ANESTHESIA: General. ESTIMATED BLOOD LOSS: 250 mL. DRAINS: None. INDICATIONS: Murali Toussaint Jr. is a 47-year-old, black male, has end-stage renal disease and requires chronic hemodialysis. He had a Charcot foot and Dr. Tao Stapleton, our orthopedist, worked on his left foot, and he needed hardware involving the foot and lower leg. He has developed osteomyelitis and maybe even infection of this hardware, and we felt amputation was necessary. We felt we had good enough blood supply for a left broav-tbv-kdsq amputation. He did have chronic swelling involving his left lower extremity. He is on dialysis. FINDINGS: We did a left pecvh-azg-ymju amputation. We transected the bone above the hardware in this distal left tibia. We tried to transect the fibula above the transected tibia. We tried to bring the nerve and transected this high in the wound as possible. Because of his chronic edema, we closed the wound, but it was tight along the incision. DESCRIPTION OF PROCEDURE: The patient was brought to the operating room, placed supine, received general anesthesia, and was intubated. Left lower extremity was prepped and draped in a sterile field. He has been on chronic IV antibiotics. I marked my incision prior to proceeding. I made my incision with a posterior flap. My incision was 4 fingerbreadths below the tibia tuberosity and then a posterior flap involving the posterior compartment muscles. We made this posterior flap about 1/3 the circumference of his leg in length. We used cautery to transect the soft tissue down to the tibia. We transected the tibia with an electric orthopedic saw. We controlled bleeding with hemostats and silk stitches. We used the cautery to go down to the fibula. We cut the fibula again with an orthopedic saw. We then used the hook in the tibia and an amputation knife to transect and create our posterior flap. We had to quickly used Vanessa clamps to control bleeding. For the bigger vessels, we used Prolene stitches to control the named arteries. We used the cautery to control some bleeding and also multiple 2-0 silk stitches. We took time to control bleeding within the wound. We modeled the wound by removing most of the soleus muscle leaving the gastrocnemius muscle posteriorly. We smoothed the cut end of our tibia with a rasp. We made sure that the fibula was cut more proximal than the tibia cut. We tried to make sure that the nerve was cut high in the wound. We then brought the posterior flap up over our anterior incision with interrupted 0 Vicryl stitches within the fascia and then we closed the skin with interrupted vertical mattress 2-0 nylon stitches in addition to skin vasquez. It must be noted that we irrigated the wound prior to closure. We used Xeroform followed by dry dressings and an Matthew bandage and a knee immobilizer. He tolerated the procedure well with plans for him to go to the recovery room and then be readmitted to the floor. cc: MD Artemio Bonds MD
[2018-10-21] MEDS: NORCO-10 PO PRN (20:03)
[2018-10-21] MEDS: ASPIRIN PO SCH (20:13)
[2018-10-21] MEDS: ELAVIL PO SCH (20:14)
[2018-10-21] MEDS: REMERON PO SCH (20:14)
--- NOTE | 2018-10-21 21:00 | PROGRESS NOTE ---
DATE: 10/21/2018 SUBJECTIVE: Patient is ready for left BKA by Dr. Hernandez. Patient was seen before surgery and after surgery. Patient is in good spirits. OBJECTIVE: Vital Signs: Temperature is 97 degrees, pulse 76, blood pressure is stable. HEENT: Within normal limits. Neck: Supple. Chest: Clear. Heart: Sounds are regular. Abdomen: Belly is soft, nontender. Good bowel sounds. Extremities: Status post left BKA. ASSESSMENT AND PLAN: 1. Postoperative day 1 left below-knee amputation due to infected hardware, with cellulitis and osteomyelitis. 2. Diabetes, off insulin pump. 3. End-stage kidney disease, on dialysis as per Dr. Palumbo. 4. I appreciated Dr. Hernandez, Dr. Stapleton, and Dr. Palumbo consults, and will continue to monitor. 5. Disposition. Will discuss with the patient's family about possible home versus rehabilitation, and continue present treatment. LEVEL OF DOCUMENTATION: 25 minutes. cc: Artemio Ness MD
[2018-10-22] MEDS: NORCO-10 PO PRN ×3 (00:16→19:09)
[2018-10-22 05:08] LABS: BASO# 0.04 X1000 (0.0-0.2); BASO% 0.5 % (0.0-0.8); EOS# 0.11 X1000 (0.0-0.7); EOS% 1.3 % (0.0-10.0); IMM GRAN# 0.02 X1000 (0.0-0.04); IMM GRAN% 0.2 % (0.0-0.5); LYMPH# 1.88 X1000 (1.2-3.4); LYMPH% 22.5 % (20.5-51.1); MCH 29.9 PG (27-31); MCV 93.3 FL (81-99); MONO# 0.44 X1000 (0.11-0.59); MONO% 5.3 % (1.7-9.3); MPV 8.7 FL (7.4-10.4); NEUT# 5.85 X1000 (1.4-6.5); NEUT% 70.2 % (42.2-75.2); PLT 302 X1000 (130-400); RBC 2.68 XMIL (4.7-6.1); RDW 14.6 % (11.5-14.5); WBC 8.34 X1000 (4.8-10.8)
[2018-10-22 05:33] LABS: ALBUMIN 3.1 g/dL (3.5-5.0); CALCIUM 8.6 mg/dL (8.8-10.2); CREATININE 7.3 mg/dL (0.7-1.2); POTASSIUM 4.7 mmol/L (3.5-5.1)
[2018-10-22] MEDS: HUMULIN R SUBQ SCH ×4 (06:19→16:34)
[2018-10-22] MEDS ORDERED: TIGHT: 0.2 ML/HR FOR DIALYSIS MISC PRN (06:21)
[2018-10-22] MEDS ORDERED: HEPARIN IV PRN (06:21)
[2018-10-22] MEDS ORDERED: NS 2,000 ML MISC PRN (06:21)
[2018-10-22] MEDS ORDERED: DILAUDID IV PRN (08:11)
[2018-10-22] MEDS: DEPAKOTE PO SCH ×2 (08:28→22:23)
[2018-10-22] MEDS: PRINIVIL PO SCH (08:28)
[2018-10-22] MEDS: APRESOLINE PO SCH ×3 (08:29→17:39)
[2018-10-22] MEDS: COREG PO SCH ×2 (08:29→22:25)
[2018-10-22] MEDS: DILAUDID IV PRN ×3 (08:41→22:18)
[2018-10-22] MEDS: PHENERGAN IV PRN ×3 (08:41→22:20)
--- NOTE | 2018-10-22 10:29 | INFECTIOUS DISEASE PROGRESS NO ---
DATE: 10/22/2018 PRESENT ILLNESS: Mr. Toussaint is status post left bzvsd-ria-oajo amputation for chronic osteomyelitis of the left lower extremity. MEDICATIONS: He is receiving 1 g of IV vancomycin and 1 g of IV cefepime after each dialysis treatment. PHYSICAL EXAMINATION: Vital Signs: Temperature is 98.1 degrees, pulse rate 95, respiratory rate 20, blood pressure 182/103, O2 saturation is 100% on room air. General: This is a chronically ill-appearing middle-aged gentleman. He is sitting up in bed, currently in no acute distress. HEENT: Atraumatic, normocephalic. Conjunctivae are pale. Oral mucous membranes are pink and moist. Neck: Supple. Trachea is midline. Cardiovascular: Heart rate is regular with a systolic murmur noted. Respiratory: Lung sounds are clear to auscultation bilaterally with no work of breathing noted. Abdomen: Soft, round and nontender. Bowel sounds are active. Neurologic: He is awake, alert, and oriented. Moving around in the bed without difficulty. Integumentary: Skin is warm and dry with an AV fistula to the left upper arm which has a good thrill and bruit. The left lower extremity has an Matthew wrap with an immobilizer in place. There is a small amount of bloody drainage on the Matthew wrap. LABORATORY AND X-RAY: Today his white count is 8.34, hemoglobin 8 platelet, count 302,000. Creatinine 7.3, GFR 10. No imaging reports today. ASSESSMENT AND PLAN: Mr. Toussaint is being treated for a left lower extremity chronic osteomyelitis and has had a left fbwgf-ile-ayuj amputation. He is in good spirits today and is asking about when he can start walking with a prosthesis. Referred him to Dr. Hernandez for that question. At this point, he is receiving IV vancomycin and cefepime after each dialysis treatment which we will continue for now. These plans have been discussed with and recommended by Dr. Landry. COMORBIDITIES: For Mr. Toussaint include diabetes mellitus, chronic kidney disease with hemodialysis and depression. Dictated by KATHY Gonzalez for Tod Landry MD cc: MD Artemio Franco MD
[2018-10-22] MEDS: MORPHINE IV PRN (13:36)
[2018-10-22] MEDS ORDERED: MAXIPIME 1 GM in NS 50 ML IV ONE (17:00)
[2018-10-22] MEDS ORDERED: VANCOMYCIN 1 GM/NS 1 GM/250 ML IVPB IV ONE (18:00)
--- NOTE | 2018-10-22 18:14 | PROGRESS NOTE ---
DATE: 10/22/2018 SUBJECTIVE: Mr. Murali Toussaint is now postoperative day 1 from a left zyppy-jch-amzb amputation for osteomyelitis and Charcot foot. He had chronic swelling of his left lower extremity and the wound was difficult to close. I felt that his blood supply was adequate. OBJECTIVE: The wound is intact. He is comfortable enough. He has it elevated on a pillow. ASSESSMENT AND PLAN: We need to make sure that he continues to work his knee and be able to extend it completely. cc: MD Artemio Bonds MD
--- NOTE | 2018-10-22 19:25 | NEPHROLOGY PROGRESS NOTE ---
DATE: 10/22/2018 SUBJECTIVE: His pain is poorly managed. Beyond that, he states he is doing okay and he has been able to eat. OBJECTIVE: Vital Signs: Blood pressure 182/103, heart rate 95, respirations 20, afebrile. General: No acute distress. Skin: Warm and dry. Neck: Neck veins are not distended. Cardiovascular: Heart is regular with a murmur. Lungs: Equal breath sounds. No crackles. Abdomen: Soft. Bowel sounds present. Extremities: No edema. IMPRESSION: 1. Chronic kidney disease, 5D. He will have his routine dialysis today. 2. Hypertension. Isolated reading. Above target on average, but we will focus on volume management and pain management. 3. Hyponatremia will be addressed with dialysis. cc: MD Artemio Esparza MD
--- NOTE | 2018-10-22 22:02 | PROGRESS NOTE ---
DATE: 10/22/2018 SUBJECTIVE: Patient is doing very well after left BKA. No complaints. He is asking for some pain medicine. Dilaudid was stopped and he is getting some phantom pain. [place] is not helping. He is going for dialysis. PHYSICAL EXAMINATION: Vital Signs: Temperature is 97.9 degrees, pulse 76, blood pressure 154/79. HEENT: Within normal limits. Neck: Supple. Chest: Bilateral air entry. Heart: Sounds are regular. Abdomen: Belly is soft, nontender. INVESTIGATIONS: CBC: White cell count 8.3, hematocrit 25, platelets 302,000. Sodium 134, potassium 4.7, chloride 88, BUN 56, creatinine 7.3, glucose 134. Blood cultures are negative. ASSESSMENT AND PLAN: 1. Status post left below-knee amputation, stable. 2. Phantom pain. Dilaudid as needed. 3. Going for dialysis. Discussed with Dr. Palumbo. Will transfuse a unit of blood. 4. Disposition. Radio Frequency Engineer for rehabilitation. 5. Diabetes, stable off insulin. LEVEL OF DOCUMENTATION: 25 minutes. cc: Artemio Ness MD
[2018-10-22] MEDS ORDERED: SODIUM CHLORIDE 0.9% 10 ML ONE (22:16)
[2018-10-22] MEDS: ASPIRIN PO SCH (22:22)
[2018-10-22] MEDS: REMERON PO SCH (22:23)
[2018-10-22] MEDS: ELAVIL PO SCH (22:24)
[2018-10-22] MEDS: LOVENOX SUBQ SCH (22:51)
[2018-10-23] MEDS: PROTONIX IV SCH ×2 (00:06→18:42)
[2018-10-23] MEDS: SODIUM CHLORIDE 0.9% INJ SCH ×2 (00:06→18:42)
[2018-10-23] MEDS: HUMULIN R SUBQ SCH ×5 (00:09→20:48)
[2018-10-23] MEDS: NORCO-10 PO PRN ×3 (03:20→16:36)
[2018-10-23] MEDS: DILAUDID IV PRN ×3 (04:20→17:18)
[2018-10-23] MEDS: PHENERGAN IV PRN ×2 (04:20→22:31)
[2018-10-23] MEDS: COREG PO SCH ×2 (08:45→20:47)
[2018-10-23] MEDS: DEPAKOTE PO SCH ×2 (08:45→20:46)
[2018-10-23] MEDS: PRINIVIL PO SCH (08:45)
[2018-10-23] MEDS: APRESOLINE PO SCH ×3 (08:45→17:18)
[2018-10-23] MEDS ORDERED: COREG PO SCH (13:30)
--- NOTE | 2018-10-23 14:12 | PROGRESS NOTE ---
DATE: 10/23/2018 SUBJECTIVE: Mr. Toussaint is admitted with left leg cellulitis. He has below-knee amputation. His leg is dressed at the present time. According to him, the cellulitis is improving. He is on daptomycin IV. His blood sugar is 116, has severe peripheral arterial disease. Blood cultures have been negative. He has diabetes, as well as gastroparesis and left leg cellulitis. Blood pressure was 164/85. Otherwise, the vital signs are stable. We will continue with the current management on him. -6 cc: MD Artemio Guillaume MD
--- NOTE | 2018-10-23 15:27 | GENERAL SURGERY PROGRESS NOTE ---
DATE: 10/23/2018 Mr. Toussaint is now 2 days after his left below-knee amputation. His wound is unwrapped today and looked satisfactory. We will wrap his wound. He is instructed to straighten his knee so that he can accommodate a prosthesis in the future. He understands. cc: MD Artemio Leggett MD
--- NOTE | 2018-10-23 15:40 | NEPHROLOGY PROGRESS NOTE ---
DATE: 10/23/2018 SUBJECTIVE: He states he still has pain despite his current treatment. He did doze off when he was not actively engaged in conversation. OBJECTIVE: Vital Signs: Blood pressure 173/87, heart rate 90, respiration 18, afebrile. General: No acute distress. Skin: Warm and dry. Neck: Neck veins are not visible. Heart: Regular with systolic murmur. Lungs: Equal. No crackles or wheezes. Abdomen: Soft, nontender. Bowel sounds present. Extremities: No edema, clubbing or cyanosis. IMPRESSION: 1. CKD 5 D. He will have his next planned dialysis on Thursday. 2. Osteomyelitis. Status post left BKA. Continue pain management. 3. Hypertension. Continue lisinopril, hydralazine. His home medications include carvedilol 12.5 b.i.d. I will restart this. cc: MD Artemio Esparza MD
[2018-10-23] MEDS: ASPIRIN PO SCH (20:46)
[2018-10-23] MEDS: REMERON PO SCH (20:46)
[2018-10-23] MEDS: ELAVIL PO SCH (20:46)
[2018-10-23] MEDS: MORPHINE IV PRN (20:47)
[2018-10-24] MEDS: PHENERGAN IV PRN ×2 (04:36→11:04)
[2018-10-24] MEDS: DILAUDID IV PRN ×4 (04:36→23:22)
[2018-10-24] MEDS: HUMULIN R SUBQ SCH ×4 (06:27→20:37)
[2018-10-24] MEDS: PRINIVIL PO SCH (09:52)
[2018-10-24] MEDS: APRESOLINE PO SCH ×3 (09:52→17:23)
[2018-10-24] MEDS: DEPAKOTE PO SCH ×2 (09:53→20:36)
[2018-10-24] MEDS: COREG PO SCH ×2 (09:53→20:37)
--- NOTE | 2018-10-24 11:32 | GENERAL SURGERY PROGRESS NOTE ---
DATE: 10/24/2018 Mr. Toussaint has been able to straighten his leg satisfactorily. We inspected his stump yesterday, and it looked okay. We will continue with his current regimen and qzehx-cmeib-zav dialysis. He is encouraged to straighten his leg as needed. cc: MD Artemio Leggett MD
--- NOTE | 2018-10-24 13:46 | PROGRESS NOTE ---
DATE: 10/24/2018 He is feeling better. His lungs are clear. Heart sounds are normal. His amputation area was checked by Dr. Dugan, was very satisfied and later on for his BKA, he is going to get a prosthesis. His blood sugar today was 94. C. difficile was negative. The cellulitis is improving. Blood pressure is slightly high, 170/94. However, he is on very high doses of carvedilol, hydralazine, and lisinopril. We will continue to watch his pressure. -2 cc: MD Artemio Guillaume MD
[2018-10-24] MEDS: SODIUM CHLORIDE 0.9% INJ SCH (18:41)
[2018-10-24] MEDS: PROTONIX IV SCH (18:41)
[2018-10-24] MEDS: REMERON PO SCH (20:37)
[2018-10-24] MEDS: ELAVIL PO SCH (20:37)
[2018-10-24] MEDS: ASPIRIN PO SCH (20:37)
[2018-10-25] MEDS: DILAUDID IV PRN ×3 (05:37→21:14)
[2018-10-25] MEDS: HUMULIN R SUBQ SCH ×5 (06:23→21:04)
[2018-10-25] MEDS ORDERED: NS 2,000 ML MISC PRN (07:25)
[2018-10-25] MEDS ORDERED: HEPARIN IV PRN (07:25)
[2018-10-25] MEDS ORDERED: TIGHT: 0.2 ML/HR FOR DIALYSIS MISC PRN (07:25)
[2018-10-25] MEDS: NORCO-10 PO PRN ×2 (09:26→17:03)
--- NOTE | 2018-10-25 09:41 | PROGRESS NOTE ---
DATE: 10/25/2018 This is postop day 4, left mqvsk-oom-nkad amputation. Mr. Toussaint is being dialyzed this morning. His left avyhg-lpl-uhvz amputation stump is less swollen. The dressing is clean. The wound is intact without evidence of infection. He will need to go to rehab at discharge. His sutures and vasquez need to stay for several more weeks. cc: MD Artemio Bonds MD
--- NOTE | 2018-10-25 11:45 | NEPHROLOGY PROGRESS NOTE ---
DATE: 10/25/2018 SUBJECTIVE: The patient is sitting up in bed eating breakfast. He denies any issues today. OBJECTIVE: Vital signs: Temperature is 98.8, pulse 77, respiratory rate 16, blood pressure 145/76, intake 2.7 L, output not measured. General: This is a middle-aged gentleman sitting up in bed. He is awake and alert. He does not appear in any distress. HEENT: Normocephalic and atraumatic. Conjunctivae pale. Oral mucosa is moist. Neck is supple without JVD noted in an upright position. Cardiovascular: Regular rate and rhythm. He does have a systolic murmur. Pulmonary: He has equal excursion. He is clear bilaterally. Abdomen is soft with positive bowel sounds. : Not inspected. He has minimal void with hemodialysis assist. Extremities: He has chronic edema to the right lower extremity. Left lower BKA noted. Dressing intact. Integumentary: Skin is warm and dry. Neurologic: Grossly nonfocal. DIAGNOSTIC DATA: No new labs since 10/22/2018. ASSESSMENT AND PLAN: 1. Chronic kidney disease 5D. Today is his routine dialysis day. We will continue him on a 2K bath/UA up to this dry weight, 3.5 hour treatment. 2. Osteomyelitis, status post left below knee amputation, followed by primary and Surgery. 3. Hypertension. Home medications have been restarted. His blood pressure is better controlled today. Dictated by KATHY De Los Santos for Parviz Palumbo MD Face to face encounter, data reviewed, discussed with Tabitha Mckeon on 10/25/18. I agree with the above assessment and plan of care. cc: MD Artemio Esparza MD [facility]
--- NOTE | 2018-10-25 12:02 | GASTROENTEROLOGY CONSULTATION ---
DATE: 10/25/2018 ATTENDING PHYSICIAN: Dr. Ness. PRIMARY CARE PHYSICIAN: Dr. Ness. REASON FOR CONSULTATION: Blood in the stools and anemia. HISTORY OF PRESENT ILLNESS: Mr. Toussaint is 47-year-old male who was admitted on 10/17/2018 for left leg swelling and pain and unable to walk. He was diagnosed with left leg cellulitis. He was treated with antibiotics. He required a left below-knee amputation with general surgery. Today is day 4 postoperative after the left below-knee amputation. Dr. Hernandez is following. The patient, during the hospital stay, was noted to have blood in the stools. The patient did not recall seeing any blood in the stools himself but he has been anemic. He has end-stage renal disease, on hemodialysis. He denies any nausea, vomiting, or vomiting blood. The patient has had a colonoscopy done 2 years ago at [facility]. He does not recall the results of the procedure. PAST MEDICAL HISTORY: Diabetes, end-stage renal disease, on dialysis, aortic wall sclerosis with moderate pulmonary hypertension, atypical chest pain, gastroparesis, and left leg cellulitis. Also a past medical history of hypertension. PAST SURGICAL HISTORY: 1. He had a colonoscopy 2 years ago. 2. Left below-knee amputation done during this hospitalization. Today is postoperative day 4. ALLERGIES: No known drug allergies. SOCIAL HISTORY: He is . He has 3 children. He lives in [place]. He is disabled. He denies a history of alcohol or smoking. FAMILY HISTORY: Father of brain aneurysm at age 69. Mother is alive with complicated diabetes. MEDICATIONS: In the hospital include Remeron, Elavil, aspirin, Coreg, dextrose 5%, Depakote, hydralazine, hydrocodone/acetaminophen, Dilaudid, sliding-scale regular insulin, lisinopril, cefepime, morphine, Protonix, Phenergan, vancomycin. DIET: The patient is currently on a diabetic diet. REVIEW OF SYSTEMS: Denies any fevers, rigors, chills, chest pain, shortness of breath, dyspnea. Denies any vomiting blood. Denies any blood in the stools himself, although he was told he had blood in the stools. He does have a left below-knee amputation done during this admission. He is recovering from that. He denies any neurologic complaints. PHYSICAL EXAMINATION: Vital Signs: Temperature 99.1 degrees, pulse rate of 80, respiratory rate of 16, blood pressure 160/76, saturating 100% on room air. Body weight of 248 pounds, BMI of 30.2 kg/m2. General Appearance: Moderately built, moderately nourished, lying in bed, in no acute distress. HEENT: Pale conjunctivae. No icterus. Pupils equal, reactive to light and accommodation. Neck: Supple. Abdomen: Soft, nondistended. No guarding. No rebound. Extremities: No cyanosis or clubbing. He has some swelling of the right lower extremity. He is status post left below-knee amputation. Neurologic: Alert, awake, oriented x3. LABORATORY DATA: His hemoglobin and hematocrit are 8 and 25, white count of 8.34, platelet count of 302,000. Sodium 140, potassium 4.7, chloride of 88, bicarb 20, anion gap of 14, BUN of 56, creatinine of 7.3, glucose of 134, calcium 8.6, phosphorus 5.0, albumin of 3.1. AST 15, ALT 9, alkaline phosphatase 254, total protein is 7.4. C. difficile toxin was negative and stool for occult was positive. Blood culture x2 negative after 5 days, from 10/17/2018. IMPRESSION AND PLAN: 1. Status post left below-knee amputation with left leg cellulitis in the setting of diabetes. This is being monitored by Dr. Hernandez. 2. Phantom pain. He is on intravenous pain control. 3. End-stage renal disease, on hemodialysis. He is undergoing dialysis right now. He is in the dialysis suite. 4. Anemia. He was scheduled to have 1 unit of blood transfused during dialysis on Thursday. 5. Positive Hemoccult and question of rectal bleeding. The patient has had a colonoscopy 2 years ago at [facility]. We will try to obtain the records. 6. Gastrointestinal prophylaxis with proton pump inhibitors once daily. 7. We will start him on a bowel regimen. Olive-Colace once daily. 8. We will obtain the report from our clinic and then decide if the patient needs any further workup like a flexible sigmoidoscopy or colonoscopy. In the meanwhile, we will give him hemorrhoidal cream to see if that helps. We will start on iron C twice a day as well to help with his anemia. 9. The above plan was discussed with the patient. All questions were answered. Please call us with any further questions. cc: MD Artemio Reyes MD
[2018-10-25] MEDS: APRESOLINE PO SCH ×3 (12:58→16:56)
[2018-10-25] MEDS: PHENERGAN IV PRN ×2 (13:15→21:15)
[2018-10-25] MEDS: MIRALAX PO SCH (13:18)
[2018-10-25] MEDS: SODIUM CHLORIDE 0.9% INJ PRN (13:18)
[2018-10-25] MEDS: COREG PO SCH ×2 (13:22→21:04)
[2018-10-25] MEDS: DEPAKOTE PO SCH ×2 (13:23→21:04)
[2018-10-25] MEDS: PRINIVIL PO SCH (13:23)
--- NOTE | 2018-10-25 14:41 | INFECTIOUS DISEASE PROGRESS NO ---
DATE: 10/25/2018 PRESENT ILLNESS: Mr. Toussaint is status post left [id number] amputation for chronic osteomyelitis of the left lower extremity. MEDICATIONS: He is receiving 1 g of IV vancomycin and 1 g of IV cefepime after each dialysis treatment. PHYSICAL EXAMINATION: Vital Signs: Temperature is 98.4 degrees, pulse rate 78, respiratory rate 16, blood pressure 147/72, O2 saturation is 100% on room air. General: This is a chronically ill- appearing, middle-aged gentleman, sitting up in bed, currently in no acute distress. HEENT: Atraumatic, normocephalic. Oral mucous membranes are pink and moist. Conjunctivae are pale. Neck: Supple. Trachea is midline. Cardiovascular: Heart rate is regular with a systolic murmur noted. There is an AV fistula in place to the left upper arm which has a good thrill and bruit. Respiratory: Lung sounds are clear to auscultation bilaterally with no work of breathing noted. Integumentary: Skin is warm, dry, and intact with dressings in place to the left upper arm. The left lower extremity has an Matthew wrap dressing, which was removed. The incision has vasquez, which are intact, with some bloody drainage noted. Neurologic: He is awake, alert, and oriented. Able to move around in the bed with assistance. LABORATORY AND X-RAY: None available today. ASSESSMENT AND PLAN: Mr. Toussaint has had a left ixfjx-[id number] amputation due to chronic osteomyelitis. He has been receiving IV vancomycin and IV cefepime after each dialysis treatment. For now, the patient states he is doing well, without any diarrhea, rashes, or mouth pain/sores. The incision is clean, and shows no signs of infection, so we will stop the vancomycin and cefepime after the doses given this evening. A stop date has been placed for later tonight. We will go ahead and sign off at this time, but will be available on as as needed basis. These plans have been discussed with and recommended by Dr. Landry. COMORBIDITIES: For Mr. Toussaint include chronic kidney disease with hemodialysis, diabetes mellitus, and depression. Dictated by KATHY Gonzalez for Tod Landry MD cc: MD Artemio Franco MD MTDD
[2018-10-25] MEDS ORDERED: MAXIPIME 1 GM in NS 50 ML IV ONE (17:00)
[2018-10-25] MEDS ORDERED: VANCOMYCIN 1 GM/NS 1 GM/250 ML IVPB IV ONE (18:00)
[2018-10-25] MEDS: PROTONIX IV SCH (19:29)
[2018-10-25] MEDS: SODIUM CHLORIDE 0.9% INJ SCH (19:29)
[2018-10-25] MEDS: PERICOLACE PO SCH (21:04)
[2018-10-25] MEDS: ELAVIL PO SCH (21:04)
[2018-10-25] MEDS: ICAR-C PO SCH (21:04)
[2018-10-25] MEDS: REMERON PO SCH (21:04)
[2018-10-25] MEDS: ASPIRIN PO SCH (21:04)
--- NOTE | 2018-10-25 21:50 | PROGRESS NOTE ---
DATE: 10/25/2018 SUBJECT: The patient complains of phantom pain. No complaints. He did receive a unit of blood during dialysis. He also has heme-positive stools. REVIEW OF SYSTEMS: Otherwise none reported. PHYSICAL EXAM: Temperature is low-grade fever 100, pulse is 80, blood pressure 157/64.HEENT: Within normal limits. Neck: Supple. Chest: Clear to auscultation. Heart: Sounds are regular. Belly: Is soft, nontender. Good bowel sounds. No signs of peritonitis. No neurological deficits. ASSESSMENT AND PLAN: 1. Anemia. Heme-positive stools. This could be end-stage kidney disease and postop. In light of heme-positive stools consult with Dr. Saunders. 2. Repeat the labs in the morning. 3. Pain control as per the order sheet. Patient is getting IV vancomycin after dialysis and will discontinue since the patient had left BKA. Repeat the labs in the morning. LEVEL OF DOCUMENTATION: 25. cc: Artemio Ness MD
[2018-10-26] MEDS: ANUSOL-HC CREAM PR SCH ×3 (03:18→21:00)
[2018-10-26] MEDS: DILAUDID IV PRN ×3 (03:29→18:20)
[2018-10-26] MEDS: PHENERGAN IV PRN ×3 (03:31→18:20)
[2018-10-26] MEDS: SODIUM CHLORIDE 0.9% INJ PRN ×3 (03:31→18:22)
[2018-10-26] MEDS: MORPHINE IV PRN ×3 (06:30→21:07)
[2018-10-26 07:29] LABS: BASO# 0.03 X1000 (0.0-0.2); BASO% 0.4 % (0.0-0.8); EOS% 4.2 % (0.0-10.0); HEMATOCRIT 22.2 % (42.0-52.0); IMM GRAN# 0.02 X1000 (0.0-0.04); IMM GRAN% 0.3 % (0.0-0.5); LYMPH# 1.74 X1000 (1.2-3.4); LYMPH% 24.5 % (20.5-51.1); MCH 30.2 PG (27-31); MCHC 31.5 g/dL (33-37); MCV 95.7 FL (81-99); MONO% 11.3 % (1.7-9.3); MPV 9.3 FL (7.4-10.4); NEUT# 4.22 X1000 (1.4-6.5); NEUT% 59.3 % (42.2-75.2); PLT 295 X1000 (130-400); RBC 2.32 XMIL (4.7-6.1); RDW 15.8 % (11.5-14.5); WBC 7.11 X1000 (4.8-10.8)
[2018-10-26 07:59] LABS: CALCIUM 8.5 mg/dL (8.8-10.2); CREATININE 7.9 mg/dL (0.7-1.2); POTASSIUM 5.1 mmol/L (3.5-5.1)
[2018-10-26] MEDS ORDERED: NS 500 ML IV ONE (08:34)
--- NOTE | 2018-10-26 08:55 | NEPHROLOGY PROGRESS NOTE ---
DATE: 10/26/2018 SUBJECTIVE: The patient is sitting up in bed. No complaints. He is hoping to go home today. OBJECTIVE: Vital Signs: Temperature 97.9 degrees, pulse 79, respiratory rate 19, blood pressure 140/73. Intake 1.9 L. Output 5.2 L. General: This is a middle-aged gentleman, sitting up in bed, awake and alert. He is in no acute distress. HEENT: Normocephalic, atraumatic. MILEY. Neck: Supple without JVD. Cardiovascular: Regular rate and rhythm. Pulmonary: Clear bilaterally. Abdomen: Soft with positive bowel sounds. : Not inspected. Extremities: Left BKA. Dressing is intact. Matthew wrap. Right lower extremity with chronic edema. Integumentary: Skin is warm and dry. LABORATORY DATA: WBC of 7.1, hemoglobin 7. Sodium 128, potassium 5.1, CO2 of 24, creatinine 7.9, calcium 8.5. ASSESSMENT AND PLAN: 1. Chronic kidney disease 5D. We dialyzed him yesterday on his regular dialysis treatment. If he remains in the hospital tomorrow, will plan to continue his routine prescription. 2. Osteomyelitis, status post left below-knee amputation. Followed by primary and Surgery. 3. Hypertension, improved. 4. Electrolytes and acid-base balance. These are acceptable. 5. Anemia. Need to make sure he has his erythropoietin ordered. Dictated by KATHY De Los Santos for Parviz Palumbo MD Face to face encounter, data reviewed, discussed with Tabitha Mckeon on 10/26/18. I agree with the above assessment and plan of care. cc: MD Artemio Esparza MD [facility]
[2018-10-26] MEDS: APRESOLINE PO SCH ×3 (10:52→18:28)
[2018-10-26] MEDS: COREG PO SCH ×2 (10:52→20:52)
[2018-10-26] MEDS: DEPAKOTE PO SCH ×2 (10:52→20:52)
[2018-10-26] MEDS: NEPHRO-VITE PO SCH (10:53)
[2018-10-26] MEDS: ICAR-C PO SCH ×2 (10:53→20:52)
[2018-10-26] MEDS: PRINIVIL PO SCH (10:53)
[2018-10-26] MEDS: MIRALAX PO SCH (10:53)
[2018-10-26] MEDS: HUMULIN R SUBQ SCH ×4 (12:00→21:02)
[2018-10-26] MEDS: SODIUM CHLORIDE 0.9% INJ SCH (18:21)
[2018-10-26] MEDS: PROTONIX PO SCH (20:52)
[2018-10-26] MEDS: REMERON PO SCH (20:52)
[2018-10-26] MEDS: ELAVIL PO SCH (20:52)
[2018-10-26] MEDS: PERICOLACE PO SCH (20:52)
[2018-10-26] MEDS: ASPIRIN PO SCH (20:52)
--- NOTE | 2018-10-26 22:08 | PROGRESS NOTE ---
DATE: 10/26/2018 SUBJECTIVE: The patient is doing a little better, and he had dialysis yesterday. I am not sure he did receive blood transfusion. He is running low-grade fever, 99 degrees. OBJECTIVE: Vital Signs: Stable. HEENT: Within normal limits. Neck: Supple. Chest: Clear. Cardiovascular: Heart sounds are regular. Abdomen: Belly is soft, nontender. Extremities: Left BKA noted. INVESTIGATIONS: CBC: White cell count 7, hematocrit 22, platelets 295,000. Sodium 128, potassium 5, BUN 59, creatinine 7.9. ASSESSMENT AND PLAN: 1. Anemia, heme-positive stools. We will transfuse 2 units of packed red blood cells during dialysis. I do not know his reports from Dr. Saunders's office; apparently, he had a previous gastroenterology workup. 2. Patient is going for dialysis tomorrow, and he is still getting the cefepime after dialysis. Discontinue vancomycin. 3. Diabetes, stable. 4. Hypertension, stable. He has a bed at [facility], and will attempt to discharge after his anemia workup is stable. He is going to dialysis tomorrow. LEVEL OF DOCUMENTATION: 25 minutes. cc: Artemio Ness MD
--- NOTE | 2018-10-26 23:51 | PROVIDER PROGRESS NOTE ---
Progress Note S: No acute overnight events. Afebrile. Patient tolerating PO without N/V/abdominal pain. +brown stool this AM without blood. O: Last Vital Signs Temp 97.6 F 10/27/18 04:00 Pulse 72 10/27/18 04:00 Resp 19 10/27/18 04:00 BP 135/71 10/27/18 04:00 Pulse Ox 100 10/27/18 04:00 Height 6 ft 4 in Weight 248 lb GEN: awake, alert, NAD HEENT: anicteric, MMM NECK: supple CV: RRR, no murmurs ABD: soft NT/ND, NABS EXT: right BKA, no cce NEURO: nonfocal LABS: 10/26/18 10/26/18 07:00 07:00 WBC 7.11 Hgb 7.0 L Plt Count 295 Sodium 128 L Potassium 5.1 Chloride 91 L Carbon Dioxide 24 L BUN 59 H Creatinine 7.9 H Glucose 213 H Mr. Murali Toussaint is a 47 year old man with HTN, HLD, NIDDM2, ESRD on HD who was underwent BKA for left foot osteomyelitis on 10/21 and presents to the GI service for anemia and blood in stool. His had colonoscopy 2 years ago. No rectal bleeding. He is tolerating aspirin. Hgb this AM 7.0 without overt bleeding, which could be post-operative vs dilutional. Will recheck in AM and transfuse as needed to maintain hgb 7-8 # Blood in stool: no visible rectal bleeding per patient; on empiric PPI # Anemia: probable AOCD: on EPO, trending H/H, transfuse prn goal hgb 7-8; no recent iron studies # Constipation: on bowel regimen Will follow with you. Please call with questions
[2018-10-27] MEDS: DILAUDID IV PRN ×4 (01:56→21:38)
[2018-10-27] MEDS: PHENERGAN IV PRN ×2 (01:57→08:07)
[2018-10-27] MEDS: SODIUM CHLORIDE 0.9% INJ PRN ×2 (01:58→08:08)
[2018-10-27] MEDS: MORPHINE IV PRN (04:08)
[2018-10-27] MEDS: HUMULIN R SUBQ SCH ×4 (06:17→21:00)
[2018-10-27] MEDS ORDERED: HEPARIN IV PRN (06:23)
[2018-10-27] MEDS ORDERED: NS 2,000 ML MISC PRN (06:23)
[2018-10-27] MEDS ORDERED: TIGHT: 0.2 ML/HR FOR DIALYSIS MISC PRN (06:23)
[2018-10-27] MEDS: DEPAKOTE PO SCH ×2 (08:12→21:01)
[2018-10-27] MEDS: APRESOLINE PO SCH ×3 (08:13→16:47)
[2018-10-27] MEDS: NEPHRO-VITE PO SCH (08:13)
[2018-10-27] MEDS: PRINIVIL PO SCH (08:13)
[2018-10-27] MEDS: COREG PO SCH ×2 (08:13→21:00)
[2018-10-27] MEDS: ICAR-C PO SCH ×2 (08:13→21:00)
[2018-10-27] MEDS: MIRALAX PO SCH (08:16)
[2018-10-27] MEDS ORDERED: ZOFRAN IV PRN (08:30)
[2018-10-27] MEDS ORDERED: EPOGEN SUBQ SCH (09:00)
--- NOTE | 2018-10-27 09:14 | PROVIDER PROGRESS NOTE ---
Progress Note S: No acute overnight events. Afebrile. No rectal bleeding. +BMs. Tolerating diet. No CP, SOB, abdominal pain. O: Last Vital Signs Temp 98.9 F 10/27/18 07:52 Pulse 75 10/27/18 07:52 Resp 18 10/27/18 07:52 BP 144/76 10/27/18 07:52 Pulse Ox 100 10/27/18 07:52 Height 6 ft 4 in Weight 248 lb GEN: awake, alert, NAD HEENT: anicteric, MMM NECK: supple CV: RRR, no murmurs ABD: soft NT/ND, NABS EXT: right BKA with dressing, no cce NEURO: nonfocal LABS: 10/26/18 10/26/18 07:00 07:00 WBC 7.11 Hgb 7.0 L Plt Count 295 Sodium 128 L Potassium 5.1 Chloride 91 L Carbon Dioxide 24 L BUN 59 H Creatinine 7.9 H Glucose 213 H A/P Mr. Murali Toussaint is a 47 year old man with HTN, HLD, NIDDM2, ESRD on HD who was underwent BKA for left foot osteomyelitis on 10/21 and presents to the GI service for anemia and +FOBT. He had EGD/colonoscopy in 05/2015 that showed H pylori gastritis and inadequate prep. No rectal bleeding. He is tolerating aspirin. Hgb yesterday showed hgb 7.0. AM pending. Drop in hgb could be post- operative vs dilutional; no overt GI bleeding. # Blood in stool: no visible rectal bleeding per patient; on empiric PPI # Anemia: probable AOCD: on EPO, trending H/H, transfuse prn goal hgb 7-8; no recent iron studies # History of H pylori gastritis: treated; continue PPI for GI ppx # Constipation: on bowel regimen Recommend outpatient EGD and colonoscopy as outpatient when patient recovers from recent surgery. Will sign off. Please call with questions
[2018-10-27 09:32] LABS: BASO# 0.03 X1000 (0.0-0.2); BASO% 0.5 % (0.0-0.8); EOS# 0.33 X1000 (0.0-0.7); EOS% 5.2 % (0.0-10.0); HEMATOCRIT 21.1 % (42.0-52.0); HEMOGLOBIN 6.7 g/dL (14.0-18.0); IMM GRAN# 0.02 X1000 (0.0-0.04); IMM GRAN% 0.3 % (0.0-0.5); LYMPH# 2.14 X1000 (1.2-3.4); LYMPH% 33.6 % (20.5-51.1); MCH 30.3 PG (27-31); MCHC 31.8 g/dL (33-37); MCV 95.5 FL (81-99); MONO# 0.64 X1000 (0.11-0.59); MPV 8.9 FL (7.4-10.4); NEUT# 3.21 X1000 (1.4-6.5); NEUT% 50.4 % (42.2-75.2); PLT 331 X1000 (130-400); RBC 2.21 XMIL (4.7-6.1); RDW 15.3 % (11.5-14.5); WBC 6.37 X1000 (4.8-10.8)
[2018-10-27] MEDS: ANUSOL-HC CREAM PR SCH ×2 (12:48→21:12)
--- NOTE | 2018-10-27 13:51 | NEPHROLOGY PROGRESS NOTE ---
DATE: 10/27/2018 SUBJECTIVE: Patient resting in bed. He states that he is waiting for a bed to become available at the rehab in [place] that physicians wish to send him to. Otherwise no issues. PHYSICAL EXAMINATION: Vital Signs: Temperature 97.9 degrees, pulse 77, respiratory rate 16, blood pressure 107/55. Intake 1.8 L. Output not measured. General: Middle- aged gentleman resting in bed, awake and alert. No acute distress. HEENT: Normocephalic, atraumatic. MILEY. Neck: Supple without JVD. Cardiovascular: Regular rate and rhythm. Pulmonary: Clear bilaterally. Abdomen: Soft with positive bowel sounds. : Not inspected. Extremities: Left BKA. Dressing remains intact. Right lower extremity with chronic edema to the foot. Integumentary: Skin remains warm and dry otherwise. LAB DATA: As per chart. ASSESSMENT AND PLAN: 1. Chronic kidney disease 5D. Today is his routine dialysis day. He will dialyze on a 2K bath/UF to his dry weight 4 hour treatment. 2. Osteomyelitis status post left BKA. Followed by primary and Surgery. 3. Disposition: We understand he is to go to rehab in [place]. We will continue his dialysis in-house until that happens. Dictated by KATHY De Los Santos for Parviz Palumbo MD Face to face encounter, data reviewed, discussed with Tabitha Mckeon on 10/27/18. I agree with the above assessment and plan of care. cc: MD Artemio Esparza MD [facility]
[2018-10-27] MEDS ORDERED: MAXIPIME 1 GM in NS 50 ML IV ONE (16:00)
[2018-10-27] MEDS: ELAVIL PO SCH (21:00)
[2018-10-27] MEDS: ASPIRIN PO SCH (21:01)
[2018-10-27] MEDS: REMERON PO SCH (21:01)
[2018-10-27] MEDS: PROTONIX PO SCH (21:01)
[2018-10-27] MEDS: PERICOLACE PO SCH (21:01)
--- NOTE | 2018-10-27 22:14 | PROGRESS NOTE ---
DATE: 10/27/2018 SUBJECTIVE: The patient seen in dialysis. His hemoglobin dropped further. I spoke to Dr. Palumbo. We will transfuse 2 units during dialysis. He has heme-positive stools. GI is not interested in doing any further workup. I have not seen previous workup. OBJECTIVE: Vital signs: Temp is 98 degrees. Vitals are stable. HEENT: Within normal limits. Neck: Supple. Chest: Clear. Heart: Sounds are regular. abdomen: Belly is soft, nontender. Extremities: Stump looks fine. INVESTIGATIONS: White cell count 6.2, hematocrit 21, platelets 331,000. ASSESSMENT AND PLAN: 1. Anemia, Hemoccult-positive stools. No overt gastrointestinal bleeding. Dr. Franklin thinks transfuse as needed, and once he recovers from surgery he will do as an outpatient workup, EGD and colonoscopy. 2. The patient has a bed in the rehab. 3. Transfuse 2 units of packed red blood cells today. The patient is undergoing dialysis today. Dr. Franklin reported he had EGD, colonoscopy in May 2015 that showed H pylori gastritis and inadequate prep. 4. Will discharge in the morning. LEVEL OF DOCUMENTATION: 25 minutes. cc: Artemio Ness MD
--- NOTE | 2018-10-27 22:47 | DISCHARGE SUMMARY ---
ADMISSION DATE: 10/17/2018 DISCHARGE DATE: DISCHARGE DIAGNOSIS: Left leg cellulitis, with underlying osteomyelitis and loosening of the joint in the ankle. SECONDARY DIAGNOSES: 1. Diabetes, controlled with diet. 2. History of methicillin-resistant Staphylococcus epidermidis. 3. Endstage kidney disease, on hemodialysis Thursday, Thursday, Thursday. 4. Anemia, heme-positive stools. Previous workup 05/2015: Gastritis; inadequate colonoscopy. 5. Peripheral neuropathy. 6. Hypertension. 7. History of epilepsy. 8. Aortic valve sclerosis with moderate pulmonary hypertension. 9. Gastroparesis. 10. Arteriovenous graft in the left arm. CONSULTS: 1. Dr. Tod Landry. 2. Dr. Stapleton, orthopedic surgeon. 3. Dr. Palumbo for dialysis. 4. Dr. Hernandez. PROCEDURES: 1. Transfusion of 2 units of packed RBC. 2. Left below-knee amputation. DIAGNOSTIC DATA: 1. Radiology, bone scan findings: Osteomyelitis in the ankle joint and Subtalar area 2. Arterial flow studies: Left toe-brachial index 0.3; with noncompressible vessels. BRIEF HOSPITAL COURSE: Please see the H and P that was done on 10/17/2018. In brief, he is a 47- year-old male who came in with left leg pain and swelling, with underlying reconstructive surgery in both ankles by Dr. Stapleton. He was not able to ambulate. He was in a lot of pain, with underlying neuropathy. He was treated before admission for a Staphylococcus epidermidis with 4 weeks of IV daptomycin post dialysis. He failed to improve, continued to have left leg cellulitis and pain, with elevated inflammatory markers, CRP and sedimentation rate. Dr. Stapleton and Dr. Landry reported the patient is suffering from neuropathy, poor arterial circulation with toe- brachial index 0.3, and also evidence of osteomyelitis with loosening of the joint with metal plate. He was not able to treat as an outpatient to salvage the leg. They recommended amputation. As a result, Dr. Hernandez was consulted. He performed left BKA. Postoperative course was complicated by some phantom pain and anemia, heme-positive stools. GI consult was obtained by Dr. Franklin. There were no overt signs of bleeding. Continue erythropoietin shots and transfusion of 2 units of packed RBC, to maintain hemoglobin between 7 to 8. The patient was transferred to [facility] in a stable condition. His stump looks fine. DISCHARGE INSTRUCTIONS: 1. Care of the stump. 2. Hemodialysis Thursday, Thursday, Thursday. 3. Outpatient physical therapy. 4. Depakote 1000 p.o. b.i.d., lisinopril 40 daily, aspirin 81 mg daily, hydralazine 100 p.o. t.i.d., Elavil 10 at bedtime, Coreg 12.5 p.o. b.i.d. 5. ADA 1800-calorie diet. 6. Sliding scale with insulin coverage as needed. 7. Icar-C Plus 1 tablet p.o. b.i.d.; erythropoietin shot 10,000 units subcutaneous Thursday, Thursday, Thursday; Colace 1 tablet p.o. b.i.d.; Ultracet 1 tablet q.8 as needed for pain. 8. Follow up with Dr. Hernandez. 9. Follow up with Dr. Palumbo. cc: MD Radha Westfall MD Reginald D. Gladish, MD Leroy F. Harris, MD Justin Daigre, MD MTDD
[2018-10-27] MEDS: NORCO-10 PO PRN (23:32)
[2018-10-28] MEDS: DILAUDID IV PRN ×2 (03:28→09:41)
[2018-10-28] MEDS: NORCO-10 PO PRN ×2 (06:45→11:27)
[2018-10-28] MEDS: HUMULIN R SUBQ SCH ×2 (06:46→11:25)
[2018-10-28] MEDS: DEPAKOTE PO SCH (09:40)
[2018-10-28] MEDS: PRINIVIL PO SCH (09:40)
[2018-10-28] MEDS: APRESOLINE PO SCH (09:41)
[2018-10-28] MEDS: MIRALAX PO SCH (09:41)
[2018-10-28] MEDS: NEPHRO-VITE PO SCH (09:41)
[2018-10-28] MEDS: ICAR-C PO SCH (09:41)
[2018-10-28] MEDS: COREG PO SCH (09:42)
[2018-10-28] MEDS: ANUSOL-HC CREAM PR SCH (11:28)
[2018-10-28 11:49] VITALS: BP 156/86
--- NOTE | 2018-10-28 14:44 | NEPHROLOGY PROGRESS NOTE ---
DATE: 10/28/2018 SUBJECTIVE: Patient continues to wait for a bed in rehab. OBJECTIVE: Vital signs: Temperature 98.2 degrees, pulse 79, respiratory rate 16, blood pressure 122/68. Intake 3.2 L, output 4.2 L. General: A middle-aged gentleman resting in bed. He is awake and alert. He does not appear in distress. HEENT: Normocephalic and atraumatic. Neck: Supple without JVD. Cardiovascular: Rhythm rate and rhythm. Pulmonary: Clear Bilaterally. Abdomen: Soft with positive bowel sounds. Genitourinary: Not inspected. Minimal void. Extremities: Left BKA. Continues with the dressing. Right lower extremity leg edema. Integumentary: Skin remains warm and dry. LABORATORY DATA: Data no new labs today. ASSESSMENT AND PLAN: 1. Kidney disease 5D. If the patient remains in the hospital on Thursday, we will plan to dialyze him per his routine. If not, he can dialyze as an outpatient through rehab. 2. Osteomyelitis status post left [id number] amputation by Primary Surgery. I understand the patient needs to go to rehab at [facility]. He is again waiting placement. Dictated by KATHY De Los Santos for Parviz Palumbo MD Face to face encounter, data reviewed, discussed with Tabitha Mckeon on 10/28/18. I agree with the above assessment and plan of care. cc: MD Artemio Esparza MD [facility]
== END 2018-10-28 13:48 | DRG 617 ==
LOC: ED 11:19 → 1N 11:20
PROVIDERS: ADMIT Internal Medicine; ATTEND Internal Medicine